=== PATIENT | female | born 1970 | race Hispanic/Latino ===

== ENCOUNTER 2018-11-21 19:07 | Emergency (ER) | payer OTHER ==
[2018-11-21 19:56] LABS: Absolute Lymphocytes (CBC) 0.8 K/uL (0.7-4.9); Absolute Monocytes 0.7 K/uL (0.1-1.3); Absolute Neutrophil 5.6 K/uL (1.8-8.0); Basophils % 0.4 % (0-1.3); Eosinophils % 0.3 % (0-4.4); Hematocrit 33.4 % (36.0-45.0); MPV 8.7 fL (7.6-11.3); Monocytes % 9.8 % (3.3-12.3); RBC Red Blood Cell Count 3.71 M/uL (3.86-4.86)
[2018-11-21 20:12] LABS: ALT/SGPT 38 U/L (12-78); AST/SGOT 36 U/L (15-37); Albumin 3.5 g/dL (3.4-5.0); Alkaline Phosphatase 51 U/L (45-117); BUN Blood Urea Nitrogen 15 mg/dL (7-18); Bicarbonate 25 mmol/L (21-32); Bilirubin Direct 0.1 mg/dL (0-0.2); Bilirubin Total 0.3 mg/dL (0.2-1.0); Glucose Level 94 mg/dL (74-106); Lipase 67 U/L (73-393); Potassium 3.1 mmol/L (3.5-5.1); Protein, Total 6.5 g/dL (6.4-8.2); Sodium Level 140 mmol/L (136-145)
[2018-11-21 20:21] LABS: Urine Blood NEGATIVE (NEG); Urine Glucose NEGATIVE (NEG); Urine Protein 1+ (NEG); Urine Specific Gravity >1.030 (1.005-1.030); Urine pH 5.5 (5.0-7.0)
[2018-11-21 20:37] LABS: Urine Bacteria >50 /HPF (<20); Urine RBC <5 /HPF (NONE SEEN)
[2018-11-21 20:39] LABS: Urine Amorphous Sediment 3+ /HPF (NONE SEEN); Urine Culture Reflex Order REFLEXED
[2018-11-21] MEDS ORDERED: POTASSIUM CL SA 10 MEQ TAB PO ONE ×2 (21:52→22:03)
[2018-11-21] MEDS ORDERED: CEFTRIAXONE/SWI 1gm 1 GM/10 ML SYR ONE (21:52)
[2018-11-21] MEDS ORDERED: KETOROLAC 30 MG/ML INJ ONE (22:20)
[2018-11-21] MEDS ORDERED: NA CHLORIDE 0.9% 1,000 ML ONE (22:20)
--- NOTE | 2018-11-21 23:15 | ER ---
Nurse's Notes [facility] Name: Shayy Gonzales Age: 48 yrs Sex: Female : 1970 Arrival Date: 11/21/2018 Time: 19:11 Bed 18 Private MD: Diagnosis: Urinary tract infection, site not specified Presentation: 11/21 19:21 Presenting complaint: Patient states: she has been vomiting with diarrhea since Wednesday, bb also has burning with urination which started today and pain on left side of face pt saw PCP today who gave her Cipro and Zofran but she states her stomach has never been this bloated or painful and is radiating to her lower back. Transition of care: patient was not received from another setting of care. Onset of symptoms was November 18, 2018. Risk Assessment: Do you want to hurt yourself or someone else? Patient reports no desire to harm self or others. Initial Sepsis Screen: Does the patient meet any 2 criteria? No. Patient's initial sepsis screen is negative. Does the patient have a suspected source of infection? No. Patient's initial sepsis screen is negative. Care prior to arrival: Cipro and Zofran taken one time today. 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 - Social history:: Smoking status: Patient/guardian denies using tobacco, Patient uses alcohol, occasionally. Patient/guardian denies using street drugs. - Ebola Screening: : No symptoms or risks identified at this time. Screenin:25 Abuse screen: Denies threats or abuse. Nutritional screening: No deficits noted. ea Tuberculosis screening: No symptoms or risk factors identified. Fall Risk None identified. Assessment: 19:33 General: Appears uncomfortable, Behavior is calm, cooperative, appropriate for age. ea Pain: Complains of pain in abdomen Pain does not radiate. Pain currently is 9 out of 10 on a pain scale. Neuro: Level of Consciousness is awake, alert, obeys commands, Oriented to person, place, time, situation. Cardiovascular: Patient's skin is warm and dry. Respiratory: Airway is patent Respiratory effort is even, unlabored, Respiratory pattern is regular, symmetrical. GI: Bowel sounds present X 4 quads. Abd is soft X 4 quads Abdomen is tender to palpation in right upper quadrant, left upper quadrant, right lower quadrant and left lower quadrant Reports bloating, diarrhea. Derm: Skin is pink, warm \T\ dry. 20:24 Reassessment: Patient and/or family updated on plan of care and expected duration. Pain ea level reassessed. Patient is alert, oriented x 3, equal unlabored respirations, skin warm/dry/pink. 21:30 Reassessment: Patient and/or family updated on plan of care and expected duration. Pain ea level reassessed. Patient is alert, oriented x 3, equal unlabored respirations, skin warm/dry/pink. 23:00 Reassessment: Patient and/or family updated on plan of care and expected duration. Pain ea level reassessed. Patient is alert, oriented x 3, equal unlabored respirations, skin warm/dry/pink. 23:28 Reassessment: Patient and/or family updated on plan of care and expected duration. Pain ea level reassessed. Patient is alert, oriented x 3, equal unlabored respirations, skin warm/dry/pink. Discharge instruction given to patient, verbalized the understanding of instruction Patient states feeling better. Patient states symptoms have improved. Vital Signs: 19:24 BP 110 / 75; Pulse 80; Resp 16 S; Temp 99.1(O); Pulse Ox 98% on R/A; Weight 53.07 kg bb (R); Height 5 ft. 0 in. (152.40 cm) (R); Pain 9/10; 20:45 BP 103 / 67; Pulse 74; Resp 18; Pulse Ox 99% ; ea 21:30 BP 107 / 70; Pulse 68; Resp 18; Pulse Ox 100% ; ea 23:00 BP 100 / 59; Pulse 70; Resp 18; Pulse Ox 99% on R/A; ea 19:24 Body Mass Index 22.85 (53.07 kg, 152.40 cm) ED Course: 19:11 Patient arrived in ED. am2 19:24 Triage completed. bb 19:24 Arm band placed on Patient placed in an exam room, on a stretcher, on pulse oximetry. bb Family accompanied patient. 19:30 Fletcher Sullivan MD is Attending Physician. tw4 19:33 Corina Sosa, RN is Primary Nurse. ea 19:43 Inserted saline lock: 20 gauge in right antecubital area, using aseptic technique. ar5 19:52 Lipase Sent. ar5 19:53 Lipase Sent. ar5 19:53 Hepatic Function Sent. ar5 19:53 Creatinine for Radiology Sent. ar5 19:53 CBC with Diff Sent. ar5 19:53 Basic Metabolic Panel Sent. ar5 20:25 Patient has correct armband on for positive identification. Bed in low position. Call ea light in reach. Side rails up X 1. 23:28 No provider procedures requiring assistance completed. IV discontinued, intact, ea bleeding controlled, No redness/swelling at site. Pressure dressing applied. Administered Medications: 21:50 Drug: Rocephin 1 grams Route: IV; Rate: 1 bolus; Site: right antecubital; ea 22:00 Follow up: Response: No adverse reaction; IV Status: Completed infusion ea 21:50 Drug: Potassium Chloride 40 mEq Route: PO; ea 22:00 Follow up: Response: No adverse reaction ea 22:19 Drug: TORadol 30 mg Route: IVP; Site: right antecubital; ea 22:50 Follow up: Response: No adverse reaction; Pain is decreased ea 22:19 Drug: NS 0.9% 1000 ml Route: IV; Rate: 1 bolus; Site: right antecubital; ea 23:29 Follow up: Response: No adverse reaction; IV Status: Completed infusion; IV Intake: ea 1000ml Intake: 23:29 IV: 1000ml; Total: 1000ml. ea Outcome: 23:13 Discharge ordered by . tw4 23:28 Discharged to home ambulatory, with significant other. ea 23:28 Condition: improved 23:28 Discharge instructions given to patient, Instructed on discharge instructions, follow up and referral plans. medication usage, Demonstrated understanding of instructions, follow-up care, medications, Prescriptions given X 3. 23:34 Patient left the ED. ea Signatures: Promise Mccarthy RN RN bb Moreno, Amanda am2 Corina Sosa RN RN ea Wadley, Terrence, MD MD tw4 Mateo, Teena ar5
--- NOTE | 2018-11-21 23:15 | EDPHYS ---
Physician Documentation [facility] Name: Shayy Gonzales Age: 48 yrs Sex: Female : 1970 Arrival Date: 11/21/2018 Time: 19:11 Bed 18 Private MD: ED Physician Fletcher Sullivan HPI: 11/21 23:09 This 48 yrs old Female presents to ER via Ambulatory with complaints of tw4 Abdominal Pain, Vomiting/Diarrhea, Pain With Urination. 23:09 The patient presents to the emergency department with nausea, vomiting, diarrhea, that tw4 is intermittent. Onset: The symptoms/episode began/occurred 4 day(s) ago. Possible causes: unknown. The symptoms are aggravated by nothing. The symptoms are alleviated by nothing. Associated signs and symptoms: The patient has no apparent associated signs or symptoms. Severity of symptoms: At their worst the symptoms were moderate in the emergency department the symptoms are unchanged. The patient has not experienced similar symptoms in the past. 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 - Social history:: Smoking status: Patient/guardian denies using tobacco, Patient uses alcohol, occasionally. Patient/guardian denies using street drugs. - Ebola Screening: : No symptoms or risks identified at this time. ROS: 23:09 Constitutional: Negative for fever, chills, and weight loss, Eyes: Negative for injury, tw4 pain, redness, and discharge, Cardiovascular: Negative for chest pain, palpitations, and edema, Respiratory: Negative for shortness of breath, cough, wheezing, and pleuritic chest pain. 23:09 Back: Negative for injury and pain, MS/Extremity: Negative for injury and deformity, Skin: Negative for injury, rash, and discoloration, Neuro: Negative for headache, weakness, numbness, tingling, and seizure. 23:09 Abdomen/GI: Positive for abdominal pain, nausea and vomiting, nausea, vomiting, and diarrhea, nausea, vomiting, diarrhea. Exam: 23:09 Constitutional: This is a well developed, well nourished patient who is awake, alert, tw4 and in no acute distress. Head/Face: Normocephalic, atraumatic. Chest/axilla: Normal chest wall appearance and motion. Nontender with no deformity. No lesions are appreciated. Cardiovascular: Regular rate and rhythm with a normal S1 and S2. No gallops, murmurs, or rubs. Normal PMI, no JVD. No pulse deficits. Respiratory: Lungs have equal breath sounds bilaterally, clear to auscultation and percussion. No rales, rhonchi or wheezes noted. No increased work of breathing, no retractions or nasal flaring. Abdomen/GI: Soft, non-tender, with normal bowel sounds. No distension or tympany. No guarding or rebound. No evidence of tenderness throughout. MS/ Extremity: Pulses equal, no cyanosis. Neurovascular intact. Full, normal range of motion. Neuro: Awake and alert, GCS 15, oriented to person, place, time, and situation. Cranial nerves II-XII grossly intact. Motor strength 5/5 in all extremities. Sensory grossly intact. Cerebellar exam normal. Normal gait. Vital Signs: 19:24 BP 110 / 75; Pulse 80; Resp 16 S; Temp 99.1(O); Pulse Ox 98% on R/A; Weight 53.07 kg bb (R); Height 5 ft. 0 in. (152.40 cm) (R); Pain 9/10; 20:45 BP 103 / 67; Pulse 74; Resp 18; Pulse Ox 99% ; ea 21:30 BP 107 / 70; Pulse 68; Resp 18; Pulse Ox 100% ; ea 23:00 BP 100 / 59; Pulse 70; Resp 18; Pulse Ox 99% on R/A; ea 19:24 Body Mass Index 22.85 (53.07 kg, 152.40 cm) bb MDM: 19:30 Patient medically screened. tw4 23:09 Differential diagnosis: Nonspecific abd pain, gastritis. Data reviewed: vital signs, tw4 nurses notes. Counseling: I had a detailed discussion with the patient and/or guardian regarding: the historical points, exam findings, and any diagnostic results supporting the discharge/admit diagnosis. 11/21 19:31 Order name: Basic Metabolic Panel; Complete Time: 21:39 [facility] 11/21 21:39 Interpretation: K 3.1; CL 108. [facility] 11/21 19:31 Order name: CBC with Diff; Complete Time: 21:38 [facility] 11/21 21:38 Interpretation: Normal except: RBC 3.71; HGB 11.6; HCT 33.4; STEVEN% 78.5; LYM% 11.0. [facility] 11/21 19:31 Order name: Creatinine for Radiology; Complete Time: 21:26 [facility] 11/21 21:27 Interpretation: Within normal limits: CRE 0.61; GFR > 90. [facility] 11/21 19:31 Order name: Hepatic Function; Complete Time: 21:27 [facility] 11/21 21:27 Interpretation: Within normal limits. [facility] 11/21 19:31 Order name: Lipase; Complete Time: 21:39 [facility] 11/21 21:39 Interpretation: Within normal limits: LIP 67. [facility] 11/21 20:11 Order name: Urine Dipstick--Ancillary (enter results); Complete Time: 21:39 [facility] 11/21 19:31 Order name: IV Saline Lock; Complete Time: 19:52 [facility] 11/21 20:11 Order name: Urine --Ancillary (enter results); Complete Time: 21:26 [facility] 11/21 21:26 Interpretation: Normal except: USPGR >1.030. [facility] 11/21 20:15 Order name: Urine Microscopic Only; Complete Time: 21:26 [facility] 11/21 21:26 Interpretation: Normal except: UBACT >50; AMORPH 3+. [facility] 11/21 20:41 Order name: Urine Culture [facility] 11/21 19:31 Order name: Labs collected and sent; Complete Time: 19:53 Administered Medications: 21:50 Drug: Rocephin 1 grams Route: IV; Rate: 1 bolus; Site: right antecubital; ea 22:00 Follow up: Response: No adverse reaction; IV Status: Completed infusion ea 21:50 Drug: Potassium Chloride 40 mEq Route: PO; ea 22:00 Follow up: Response: No adverse reaction ea 22:19 Drug: TORadol 30 mg Route: IVP; Site: right antecubital; ea 22:50 Follow up: Response: No adverse reaction; Pain is decreased ea 22:19 Drug: NS 0.9% 1000 ml Route: IV; Rate: 1 bolus; Site: right antecubital; ea 23:29 Follow up: Response: No adverse reaction; IV Status: Completed infusion; IV Intake: ea 1000ml Disposition: 11/21/18 23:13 Discharged to Home. Impression: Urinary tract infection, site not specified. - Condition is Stable. - Discharge Instructions: Dysuria, Urinary Tract Infection, Adult, Urinary Tract Infection, Adult, [id number], Antibiotic Medicine, [id number]. - Prescriptions for Pyridium 200 mg Oral Tablet - take 1 tablet by ORAL route every 8 hours for 3 days; 9 tablet. Zofran 4 mg Oral Tablet - take 1 tablet by ORAL route every 12 hours As needed; 20 tablet. Macrobid 100 mg Oral Capsule - take 1 capsule by ORAL route every 12 hours for 10 days; 20 capsule. - Medication Reconciliation Form, Thank You Letter, Antibiotic Education, Prescription Opioid Use form. - Follow up: Private Physician; When: Upon discharge from the Emergency Department; Reason: Recheck today's complaints, Continuance of care, Re-evaluation by your physician. - Problem is new. - Symptoms have improved. Signatures: Dispatcher [employer] EDMS Promise Mccarthy RN RN bb Antunez, Elena, RN RN ea Wadley, Terrence, MD MD tw4 Corrections: (The following items were deleted from the chart) 23:11 23:09 Constitutional: Negative for fever, chills, and weight loss, Eyes: Negative for tw4 injury, pain, redness, and discharge, Cardiovascular: Negative for chest pain, palpitations, and edema, Respiratory: Negative for shortness of breath, cough, wheezing, and pleuritic chest pain, Abdomen/GI: Negative for abdominal pain, nausea, vomiting, diarrhea, and constipation, Back: Negative for injury and pain, MS/Extremity: Negative for injury and deformity, Skin: Negative for injury, rash, and discoloration, Neuro: Negative for headache, weakness, numbness, tingling, and seizure, tw4 23:34 23:13 11/21/2018 23:13 Discharged to Home. Impression: Urinary tract infection, site ea not specified. Condition is Stable. Forms are Medication Reconciliation Form, Thank You Letter, Antibiotic Education, Prescription Opioid Use. Follow up: Private Physician; When: Upon discharge from the Emergency Department; Reason: Recheck today's complaints, Continuance of care, Re-evaluation by your physician. Problem is new. Symptoms have improved. tw4
== END 2018-11-21 23:34 | disposition home or self-care (01) ==
LOC: ER 19:07
DX: N39.0 Urinary tract infection, site not specified (principal)
CPT/HCPCS: 36415; 80048; 80076; 81003; 81015; 81025; 83690; 85025; 87086; 87088; 96361; 96374; 96375; 99284; J0696; J7030

== ENCOUNTER 2019-03-16 06:14 | Day surgery (SDC) | payer OTHER ==
[2019-03-14 12:48] LABS: Absolute Lymphocytes (CBC) 1.1 K/uL (0.7-4.9); Absolute Monocytes 0.5 K/uL (0.1-1.3); Basophils % 1.2 % (0-1.3); Eosinophils % 1.9 % (0-4.4); Hematocrit 42.9 % (36.0-45.0); Lymphocytes % 19.6 % (15.3-44.8); MPV 9.7 fL (7.6-11.3); Monocytes % 8.1 % (3.3-12.3); RBC Red Blood Cell Count 4.81 M/uL (3.86-4.86)
[2019-03-14 13:02] LABS: Urine Appearance CLEAR; Urine Bilirubin NEGATIVE (NEG); Urine Blood NEGATIVE (NEG); Urine Color YELLOW; Urine Glucose NEGATIVE (NEG); Urine Protein NEGATIVE (NEG); Urine Specific Gravity <=1.005 (1.005-1.030); Urine Urobilinogen 0.2 mg/dL (0.2-1.0); Urine pH 6.5 (5.0-7.0)
[2019-03-14 13:20] LABS: Urine Microscopic Reflex NO UMIC
[2019-03-16 06:41] LABS: Specific Gravity 1.025 (1.005-1.030)
[2019-03-16] MEDS ORDERED: SCOPOLAMINE HYDROBROMIDE PATCH TD ONE (06:41)
[2019-03-16] MEDS ORDERED: CEFAZOLIN/SWI 2gm 2 GM/20 ML SYR ONE (06:41)
[2019-03-16] MEDS ORDERED: Ringers Lactate 1,000 ML IV ONE ×3 (06:41→12:06)
[2019-03-16] MEDS ORDERED: ROCURONIUM 50 MG/5 ML VIAL IV ONE ×2 (07:16→08:45)
[2019-03-16] MEDS ORDERED: PROPOFOL 200 MG/20 ML VIAL IV ONE (07:16)
[2019-03-16] MEDS ORDERED: NA CHLORIDE 0.9% 1,000 ML ONE (07:19)
[2019-03-16] MEDS ORDERED: LIDOCAINE 2% MPF 5 ML VIAL ONE (07:20)
[2019-03-16] MEDS ORDERED: GLYCOPYRROLATE 0.2 MG/ML SYR ONE (07:20)
[2019-03-16] MEDS ORDERED: FENTANYL CITR 250 MCG/5 ML ONE (07:21)
[2019-03-16] MEDS ORDERED: MIDAZOLAM HCL 2 MG/2 ML INJ ONE (07:21)
[2019-03-16] MEDS ORDERED: NEOSTIGMINE 1 MG/ML -10 ML VIAL ONE (07:22)
[2019-03-16] MEDS ORDERED: DEXAMETHASONE 10 MG/ML VIAL ONE (07:22)
[2019-03-16] MEDS ORDERED: ONDANSETRON 4 MG/2 ML VIAL ONE ×2 (07:22→09:34)
[2019-03-16] MEDS ORDERED: EPHEDRINE SULF 50 MG/ML VIAL ONE (07:55)
[2019-03-16] MEDS ORDERED: KETOROLAC 30 MG/ML INJ ONE (09:34)
[2019-03-16] MEDS ORDERED: MORPHINE 10 MG/ML VIAL ONE (10:28)
[2019-03-16] MEDS: MEPERIDINE HCL 50 MG/ML AMP ONE ×2 (10:40→10:49)
[2019-03-16] MEDS ORDERED: PROMETHAZINE 25 MG/ML VIAL ONE (10:52)
[2019-03-16] MEDS ORDERED: MEPERIDINE HCL 25 MG/0.5 ML ONE (11:19)
[2019-03-16] MEDS ORDERED: HYDROCODONE/APAP 5/325 MG TAB ONE (12:02)
--- NOTE | 2019-03-16 21:02 | OP ---
Date of Procedure: 03/16/2019 Surgeon: Mary Dooley MD Rn Midwife: Kim Santos. Preoperative Diagnoses: Menorrhagia, pelvic pain, leiomyomata, PEDRITO 1. Postoperative Diagnoses: Menorrhagia, pelvic pain, leiomyomata, PEDRITO 1. No endometriosis. Procedures Performed: Total laparoscopic hysterectomy, bilateral salpingectomy, cystoscopy. Anesthesia: General endotracheal. Estimated Blood Loss: Minimal. Specimens: Uterus bilateral tubes. Complications: None. Drains: None. Condition: Stable. Findings: Uterus enlarged with a large left posterior fibroid about 6 to 8 cm. No adnexal masses. Tubes with scar tissue and omental adhesions to the left adnexa as well as the right adnexa. No endometriosis seen on close inspection. No other pathology seen. Procedure In Detail: After informed consent was verified, the patient was taken back to OR, placed i n supine fashion on the operating table. After general anesthesia was given, she was placed in dorsa l lithotomy position. Pelvic exam was performed. Uterus found to be retroflexed. No adnexal masses enlarged about 12 weeks size. Abdomen, vulva, vagina, and perineum were prepped and draped in a mariya rile fashion. A 2 g of Ancef was given. SCDs were started. Arms tucked by the side after positioni ng was checked. Time-out done. Then, the prep was done. Draped in a sterile fashion. Joseph was pl aced to drain the bladder. Speculum placed to expose the cervix. Anterior lip grasped with 2 Allis clamps. Cervix was large. Went on to place a large VCare, fixed this in place. Joseph was attached to an LR bag, emptied 300 using cysto tubing for retrograde filling. After changing the gloves, 1.5 cm supraumbilical incision was made with a scalpel. Using the open la paroscopy technique, fascia was incised, tagged with 0 Vicryl sutures. Peritoneum entered bluntly, S retractors placed. Phylicia introduced. Site of entry was checked and was unremarkable. Liver gallb ladder unremarkable. Upper abdominal surface was unremarkable as well. The patient was placed in Tr endelenburg position. The omentum was stuck onto the top of the uterus. A 5 mm left lower quadrant port was placed under direct vision. Then, a 10 mm suprapubic port was placed. This was slightly pl aced to the right in the midline and slightly lower about a cm and half lower than was optimal. The first use this port for about 15 minutes of the case and then I realized that this was just very diff icult to operate through. So the fascia was closed with 0 Vicryl suture in a [id number] fashion and then the other fascial incision was made superior and along the midline in an appropriate positi on. No new skin incision was used for this. A 5 mm right lower quadrant port was placed and this was for retraction. Once all the omentum was visualized, it was sharply taken down as well as with LigaSure. The sigmoid colon had to be taken down to expose the entire extent of the tube on the right side. There was an omental adhesions to the right tube as well. These were taken down. Once all these were done, then the case was started. The 5 mm LigaSure used to take down the round ligament, left tube, mesosalpinx , utero-ovarian ligament, then the broad ligament opened up on anterior and posterior aspects and max dder flap raised anteriorly all the way to the opposite sides and posteriorly to the left uterosacral ligament. Then took down the broad ligament, skeletonized the vessels. Came anteriorly to perform more dissection to retract the bladder inferiorly, then went on opposite side. Did the same steps to take the utero-ovarian ligament, mesosalpinx, tubes that was already cut and the proximal part of it , then the round ligament, then the broad ligament was dissected in both anterior and posterior leafl ets. The bladder flap connected anteriorly, posteriorly connected back at the level of the uterosacr al ligament. Then, broad ligament was skeletonized. Bladder was dissected inferiorly by making an i ncision on the precervical fascia on top of the vagina to open up the vesicovaginal space and then I pushed the bladder down, but pushed down 2 cm, then medial incisions were made to the vessels to crea te a groove to cauterize. Bipolar basket tip was used, then the LigaSure was used to take down the v essels, cardinal ligaments. Same thing on the left side, circumferential colpotomy with a monopolar hook blade. There was a slight amount of thick tissue which could be just a small amount of ectocerv ix left on the right corner, but no other abnormality were seen. Thorough irrigation for suction was performed. The vaginal cuff was cauterized with the help of the bipolar basket tip and the LigaSure . Then, closure was done with simple 0 Vicryl stitch at both ends and 3 [id number] in the mid dle. Good support and reattachment and no problems with the hemostasis. Tubes were then removed wit h the LigaSure and removed. Then, thorough irrigation and suction were performed. Pictures were pebbles en. There was no evidence of electrical, mechanical, or thermal injury to the ureters. The ureter p aths were traced at the beginning of the case. There was no anatomic distortion at any point. So, t he umbilicus was desufflated. Fascia at the umbilicus closed with 0 Vicryl sutures that were placed and to tag. They were tied to each other with good closure effect. The fascia at the suprapubic was also closed with the help of simple 0 Vicryl stitch. The skin incisions x3 were closed with interru pted 4-0 Vicryl was then at the level of the umbilicus, there was scar revision. I had to excise the scar from her umbilical piercing. Then, I was able to reapproximate this just to create a better he patic effect with interrupted 4-0 Vicryl sutures. Then cystoscopy was performed after removing the F oley and the vaginal bulb with a 17-Jordanian sheath, 30-degree lens and normal saline. There were exce llent streams of urine from both ureteric orifices. The entire bladder surface was well visualized i n all directions and was unremarkable. Scope was removed. The bladder was drained. The vagina was cleaned up. Instrument, needle, and sponge counts were done and were correct at the end of case. Th e patient tolerated the procedure well. She will follow up with me in 1-week. AMINATA/DAFNE Voice ID: [id number] Report ID: [id number]
== END 2019-03-16 13:50 | disposition home or self-care (01) ==
LOC: OR 06:14
PROVIDERS: ATTEND Obstetrics & Gynecology
PROC: 0UT74ZZ Resection of Bilateral Fallopian Tubes, Percutaneous Endoscopic Approach (ICD-10-PCS; 2019-03-16)
PROC: 0UT94ZZ Resection of Uterus, Percutaneous Endoscopic Approach (ICD-10-PCS; principal; 2019-03-16 07:30)
DX: D25.9 Leiomyoma of uterus, unspecified (principal); N87.0 Mild cervical dysplasia; N88.8 Other specified noninflammatory disorders of cervix uteri; N72 Inflammatory disease of cervix uteri; N83.8 Other noninflammatory disorders of ovary, fallopian tube and broad ligament; N92.1 Excessive and frequent menstruation with irregular cycle; K66.0 Peritoneal adhesions (postprocedural) (postinfection)
CPT/HCPCS: 36415; 81003; 81025; 85025; 86850; 86900; 86901; 88307; J0690; J1100; J2175; J2250; J2405; J2550; J2704; J2710; J3010; J7030

== ENCOUNTER 2019-05-01 11:58 | Emergency (ER) | payer OTHER ==
[2019-05-01 12:44] LABS: Absolute Lymphocytes (CBC) 1.8 K/uL (0.7-4.9); Basophils % 1.1 % (0-1.3); Eosinophils % 3.5 % (0-4.4); Hematocrit 39.7 % (36.0-45.0); Lymphocytes % 24.7 % (15.3-44.8); MPV 9.1 fL (7.6-11.3); Monocytes % 7.5 % (3.3-12.3); RBC Red Blood Cell Count 4.33 M/uL (3.86-4.86)
[2019-05-01] MEDS ORDERED: MORPHINE 4 MG/ML SYR ONE (12:44)
[2019-05-01] MEDS ORDERED: ONDANSETRON 4 MG/2 ML VIAL ONE (12:44)
[2019-05-01] MEDS ORDERED: NA CHLORIDE 0.9% 1,000 ML ONE (12:44)
[2019-05-01 13:02] LABS: ALT/SGPT 19 U/L (12-78); AST/SGOT 23 U/L (15-37); Albumin 3.8 g/dL (3.4-5.0); Alkaline Phosphatase 72 U/L (45-117); BUN Blood Urea Nitrogen 20 mg/dL (7-18); Bicarbonate 25 mmol/L (21-32); Bilirubin Direct < 0.1 mg/dL (0-0.2); Bilirubin Total 0.3 mg/dL (0.2-1.0); Glucose Level 88 mg/dL (74-106); Lipase 117 U/L (73-393); Protein, Total 6.8 g/dL (6.4-8.2); Sodium Level 141 mmol/L (136-145)
[2019-05-01 13:04] LABS: Urine Blood NEGATIVE (NEG); Urine Glucose NEGATIVE (NEG); Urine Protein NEGATIVE (NEG); Urine Specific Gravity <1.005 (1.005-1.030); Urine pH 5.5 (5.0-7.0)
--- NOTE | 2019-05-01 13:43 | RAD REPORT ---
EXAM DESCRIPTION: CTAbdomen Pelvis W Contrast - 05/01/2019 1:31 pm CLINICAL HISTORY: Abdominal pain. RLQ w/ rebound;Abd pain COMPARISON: No comparisons TECHNIQUE: Biphasic CT imaging of the abdomen and pelvis was performed with 100 ml non-ionic IV cont rast. All CT scans are performed using dose optimization technique as appropriate and may include automated exposure control or mA/KV adjustment according to patient size. FINDINGS: Mild linear subsegmental atelectasis is present in the left lung base. Small hypodense liver lesions are present, probably cysts but incompletely character. The spleen, farley creas, adrenal glands and kidneys are within normal limits. Moderate stool is present throughout the colon. No free fluid, free air or abscess. The appendix is n ormal. No evidence of significant lymphadenopathy. No suspicious bony findings. Mild lumbar levoscoliosis. IMPRESSION: Moderate stool is present in the colon.
--- NOTE | 2019-05-01 14:17 | RAD REPORT ---
EXAM DESCRIPTION: US - Transvaginal Study Probe - 05/01/2019 1:54 pm CLINICAL HISTORY: ABD PAIN Pelvic pain. COMPARISON: No comparisons FINDINGS: The uterus is surgically absent. No pelvic mass or ascites. The right ovary was not seen clearly, potentially due to bowel gas shadowing. The left ovary measures 14 x 8 x 7 mm. Normal blood flow seen to the left ovary. No pelvic ascites. IMPRESSION: No acute process seen.
--- NOTE | 2019-05-01 15:25 | EDPHYS ---
Physician Documentation [facility] Name: Shayy Gonzales Age: 48 yrs Sex: Female : 1970 Arrival Date: 05/01/2019 Time: 12:03 Bed 19 Private MD: ED Physician Jose Diez HPI: 05/01 12:26 This 48 yrs old Female presents to ER via Ambulatory with complaints of kdr Abdominal Pain. 12:26 The patient presents with abdominal pain right lower quadrant, R flank and CVA. Onset: kdr The symptoms/episode began/occurred gradually, 1 week(s) ago. The symptoms radiate to the right flank. Associated signs and symptoms: Pertinent positives: nausea, Pertinent negatives: blood in stools, chest pain, constipation, diarrhea, dysuria, fever, headache, hematuria, palpitations, shortness of breath, vaginal discharge, vomiting, vomiting blood. The symptoms are described as achy, crampy, intermittent, sharp, stabbing, vague, waxing/waning. Modifying factors: The symptoms are alleviated by nothing, the symptoms are aggravated by. Severity of pain: At its worst the pain was moderate in the emergency department the pain is unchanged. The patient has not experienced similar symptoms in the past. The patient has been recently seen by a physician: Had a total hysterectomy about a month ago.. 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 - Social history:: Smoking status: Patient/guardian denies using tobacco. - Ebola Screening: : Patient negative for fever greater than or equal to 101.5 degrees Fahrenheit, and additional compatible Ebola Virus Disease symptoms Patient denies exposure to infectious person Patient denies travel to an Ebola-affected area in the 21 days before illness onset. ROS: 12:26 Constitutional: Negative for fever, chills, and weight loss, Eyes: Negative for injury, kdr pain, redness, and discharge, Neck: Negative for injury, pain, and swelling, Cardiovascular: Negative for chest pain, palpitations, and edema, Respiratory: Negative for shortness of breath, cough, wheezing, and pleuritic chest pain, Back: Negative for injury and pain, : Negative for injury, bleeding, discharge, and swelling, MS/Extremity: Negative for injury and deformity, Skin: Negative for injury, rash, and discoloration, Neuro: Negative for headache, weakness, numbness, tingling, and seizure activity. Psych: Negative for depression, anxiety, suicide ideation, homicidal ideation, and hallucinations, Allergy/Immunology: Negative for hives, rash, and allergies, Endocrine: Negative for neck swelling, polydipsia, polyuria, polyphagia, and marked weight changes, Hematologic/Lymphatic: Negative for swollen nodes, abnormal bleeding, and unusual bruising. 12:26 Abdomen/GI: Positive for abdominal pain, nausea. Exam: 12:26 Constitutional: This is a well developed, well nourished patient who is awake, alert, kdr and in no acute distress. Head/Face: Normocephalic, atraumatic. Eyes: Pupils equal round and reactive to light, extra-ocular motions intact. Lids and lashes normal. Conjunctiva and sclera are non-icteric and not injected. Cornea within normal limits. Periorbital areas with no swelling, redness, or edema. Neck: Trachea midline, no thyromegaly or masses palpated, and no cervical lymphadenopathy. Supple, full range of motion without nuchal rigidity, or vertebral point tenderness. No Meningismus. Chest/axilla: Normal chest wall appearance and motion. Nontender with no deformity. No lesions are appreciated. Cardiovascular: Regular rate and rhythm with a normal S1 and S2. No gallops, murmurs, or rubs. Normal PMI, no JVD. No pulse deficits. Respiratory: Lungs have equal breath sounds bilaterally, clear to auscultation and percussion. No rales, rhonchi or wheezes noted. No increased work of breathing, no retractions or nasal flaring. Back: No spinal tenderness. No costovertebral tenderness. Full range of motion. Skin: Warm, dry with normal turgor. Normal color with no rashes, no lesions, and no evidence of cellulitis. MS/ Extremity: Pulses equal, no cyanosis. Neurovascular intact. Full, normal range of motion. Neuro: Awake and alert, GCS 15, oriented to person, place, time, and situation. Cranial nerves II-XII grossly intact. Motor strength 5/5 in all extremities. Sensory grossly intact. Cerebellar exam normal. Normal gait. Psych: Awake, alert, with orientation to person, place and time. Behavior, mood, and affect are within normal limits. 12:26 Abdomen/GI: Inspection: abdomen appears normal, Bowel sounds: active, all quadrants, diminished, Palpation: soft, mild abdominal tenderness, in the posterior aspect of right lateral abdomen and right lower quadrant, Indicators: McBurney's point is tender, Whitman's sign is negative, Rovsing's sign is negative, Obturator sign is positive, Psoas sign is positive. Vital Signs: 12:10 BP 101 / 70; Pulse 67; Resp 18; Temp 98.1; Pulse Ox 98% on R/A; Weight 55.34 kg; Height hj 5 ft. 0 in. (152.40 cm); Pain 8/10; 13:15 BP 103 / 68; Pulse 61; Resp 17 S; Temp 98(O); Pulse Ox 99% ; ca1 14:00 BP 111 / 74; Pulse 59; Resp 17; Temp 98; Pulse Ox 100% ; ca1 15:19 BP 108 / 73; Pulse 65; Resp 17 S; Temp 97.9(O); Pulse Ox 100% on R/A; ca1 12:10 Body Mass Index 23.83 (55.34 kg, 152.40 cm) MDM: 12:26 Data reviewed: vital signs, nurses notes, lab test result(s), radiologic studies. kdr Counseling: I had a detailed discussion with the patient and/or guardian regarding: the historical points, exam findings, and any diagnostic results supporting the discharge/admit diagnosis, lab results, radiology results. 15:20 Patient medically screened. kdr 05/01 12:13 Order name: Basic Metabolic Panel; Complete Time: 13: kdr 05/01 12:13 Order name: CBC with Diff; Complete Time: 13: kdr 05/01 12:13 Order name: Creatinine for Radiology; Complete Time: : kdr 05/01 12:13 Order name: Hepatic Function; Complete Time: : kdr 05/01 12:13 Order name: Lipase; Complete Time: 13: kdr 05/01 12:49 Order name: Urine Dipstick--Ancillary (enter results); Complete Time: 13: bd 05/01 12:13 Order name: IV Saline Lock; Complete Time: 12:35 kdr 05/01 12:13 Order name: Labs collected and sent; Complete Time: 12:35 kdr 05/01 12:25 Order name: CT Abd/Pelvis - IV Contrast Only; Complete Time: 14:08 kdr 05/01 13:08 Order name: US Transvaginal Study (Probe); Complete Time: 15:08 kdr Administered Medications: 12:34 Drug: NS 0.9% 1000 ml Route: IV; Rate: 1 bolus; Site: right antecubital; ca1 14:20 Follow up: IV Status: Completed infusion ca1 12:34 Drug: Zofran 4 mg Route: IVP; Site: right antecubital; ca1 14:20 Follow up: Response: No adverse reaction; Pain is decreased ca1 12:37 Drug: morphine 4 mg Route: IVP; Site: right antecubital; ca1 14:20 Follow up: Response: No adverse reaction; Nausea is decreased ca1 Disposition: 05/01/19 15:20 Discharged to Home. Impression: Abdominal and pelvic pain, Constipation. - Condition is Fair. - Discharge Instructions: Constipation, Adult, Bsey-bl-Sveo, Abdominal Pain, Adult, Kvit-zq-Asox. - Prescriptions for Bentyl 20 mg Oral Tablet - take 1 tablet by ORAL route every 6 hours As needed; 20 tablet. Miralax 17 gram/dose Oral - take 1 packet by ORAL route once daily As needed dilute powder in 8 ounces of water or juice; 1 box. - Medication Reconciliation Form, Thank You Letter form. - Follow up: Private Physician; When: 2 - 3 days; Reason: If symptoms return, Further diagnostic work-up, Recheck today's complaints, Continuance of care, Re-evaluation by your physician. - Problem is new. - Symptoms have improved. Signatures: Dispatcher [employer] EDMS Jose Diez MD MD kdr El Kan RN RN Scarlet Leonardo RN RN ca1 Corrections: (The following items were deleted from the chart) 15:41 15:20 05/01/2019 15:20 Discharged to Home. Impression: Abdominal and pelvic pain; ca1 Constipation. Condition is Fair. Forms are Medication Reconciliation Form, Thank You Letter, Antibiotic Education, Prescription Opioid Use. Follow up: Private Physician; When: 2 - 3 days; Reason: If symptoms return, Further diagnostic work-up, Recheck today's complaints, Continuance of care, Re-evaluation by your physician. Problem is new. Symptoms have improved. kdr
--- NOTE | 2019-05-01 15:25 | ER ---
Nurse's Notes [facility] Name: Shayy Gonzales Age: 48 yrs Sex: Female : 1970 Arrival Date: 05/01/2019 Time: 12:03 Bed 19 Private MD: Diagnosis: Abdominal and pelvic pain;Constipation Presentation: 05/01 12:08 Presenting complaint: Patient states: stanley been having pain on my R lower abd that hj travels to my R lower back area; it started a week ago; reports nausea; denies fever and chills;. Transition of care: patient was not received from another setting of care. Onset of symptoms was May 01, 2019. Risk Assessment: Do you want to hurt yourself or someone else? Patient reports no desire to harm self or others. Initial Sepsis Screen: Does the patient meet any 2 criteria? No. Patient's initial sepsis screen is negative. Does the patient have a suspected source of infection? No. Patient's initial sepsis screen is negative. Care prior to arrival: None. 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 - Social history:: Smoking status: Patient/guardian denies using tobacco. - Ebola Screening: : Patient negative for fever greater than or equal to 101.5 degrees Fahrenheit, and additional compatible Ebola Virus Disease symptoms Patient denies exposure to infectious person Patient denies travel to an Ebola-affected area in the 21 days before illness onset. Screenin:17 Abuse screen: Denies threats or abuse. Denies injuries from another. Nutritional ca1 screening: No deficits noted. Tuberculosis screening: No symptoms or risk factors identified. Fall Risk IV access (20 points). Assessment: 12:17 General: Appears in no apparent distress. comfortable, Behavior is calm, cooperative, ca1 appropriate for age. Pain: Complains of pain in right lower quadrant and posterior aspect of right lateral abdomen Pain radiates to low back area Pain currently is 10 out of 10 on a pain scale. Quality of pain is described as crampy, stabbing, Pain began a week ago Is intermittent. Neuro: Level of Consciousness is awake, alert, obeys commands, Oriented to person, place, time, situation. Cardiovascular: Heart tones S1 S2 present Capillary refill < 3 seconds Patient's skin is warm and dry. Respiratory: Airway is patent Respiratory effort is even, unlabored, Respiratory pattern is regular, symmetrical, Breath sounds are clear bilaterally. GI: Abdomen is flat, non-distended, Bowel sounds present X 4 quads. Abd is soft X 4 quads Abdomen is tender to palpation in right lower quadrant and left lower quadrant Reports nausea. : Urine is clear. EENT: No deficits noted. No signs and/or symptoms were reported regarding the EENT system. Derm: Skin is intact, is healthy with good turgor, Skin is pink, warm \T\ dry. Musculoskeletal: Circulation, motion, and sensation intact. Capillary refill < 3 seconds, Range of motion: intact in all extremities. 13:15 Reassessment: Patient appears in no apparent distress at this time. Patient and/or ca1 family updated on plan of care and expected duration. Pain level reassessed. Patient is alert, oriented x 3, equal unlabored respirations, skin warm/dry/pink. 14:00 Reassessment: Patient appears in no apparent distress at this time. Patient and/or ca1 family updated on plan of care and expected duration. Pain level reassessed. Patient is alert, oriented x 3, equal unlabored respirations, skin warm/dry/pink. Pt back from CT scan. 15:00 Reassessment: Patient appears in no apparent distress at this time. Patient and/or ca1 family updated on plan of care and expected duration. Pain level reassessed. Patient is alert, oriented x 3, equal unlabored respirations, skin warm/dry/pink. 15:39 Reassessment: Patient appears in no apparent distress at this time. Patient is alert, ca1 oriented x 3, equal unlabored respirations, skin warm/dry/pink. Vital Signs: 12:10 BP 101 / 70; Pulse 67; Resp 18; Temp 98.1; Pulse Ox 98% on R/A; Weight 55.34 kg; Height hj 5 ft. 0 in. (152.40 cm); Pain 8/10; 13:15 BP 103 / 68; Pulse 61; Resp 17 S; Temp 98(O); Pulse Ox 99% ; ca1 14:00 BP 111 / 74; Pulse 59; Resp 17; Temp 98; Pulse Ox 100% ; ca1 15:19 BP 108 / 73; Pulse 65; Resp 17 S; Temp 97.9(O); Pulse Ox 100% on R/A; ca1 12:10 Body Mass Index 23.83 (55.34 kg, 152.40 cm) ED Course: 12:03 Patient arrived in ED. mr 12:09 Triage completed. hj 12:10 Arm band placed on right wrist. hj 12:13 Jose Diez MD is Attending Physician. kdr 12:17 Scarlet Leonardo, GT is Primary Nurse. ca1 12:17 Patient has correct armband on for positive identification. Placed in gown. Bed in low ca1 position. Call light in reach. Side rails up X 1. Pulse ox on. NIBP on. Warm blanket given. 12:17 No provider procedures requiring assistance completed. ca1 12:34 Initial lab(s) drawn, by me, sent to lab. Inserted saline lock: 20 gauge in right lt1 antecubital area, using aseptic technique. 13:[address] via wheelchair. ca1 13:31 CT Abd/Pelvis - IV Contrast Only In Process Unspecified. EDMS 13:50 US Transvaginal Study (Probe) In Process Unspecified. EDMS 15:40 IV discontinued, intact, bleeding controlled, No redness/swelling at site. Pressure ca1 dressing applied. Administered Medications: 12:34 Drug: NS 0.9% 1000 ml Route: IV; Rate: 1 bolus; Site: right antecubital; ca1 14:20 Follow up: IV Status: Completed infusion ca1 12:34 Drug: Zofran 4 mg Route: IVP; Site: right antecubital; ca1 14:20 Follow up: Response: No adverse reaction; Pain is decreased ca1 12:37 Drug: morphine 4 mg Route: IVP; Site: right antecubital; ca1 14:20 Follow up: Response: No adverse reaction; Nausea is decreased ca1 Outcome: 15:20 Discharge ordered by . kdr 15:40 Discharged to home ambulatory, with significant other. ca1 15:40 Condition: stable 15:40 Discharge instructions given to patient, Instructed on discharge instructions, follow up and referral plans. medication usage, Demonstrated understanding of instructions, follow-up care, medications, Prescriptions given X 2. 15:41 Patient left the ED. ca1 Signatures: Dispatcher [employer] EDMS Jose Dize MD MD [facility] Ramiro Mikki mr El Kan RN RN hj Acob, Cheryl, RN RN ca1 Jennifer, Melvi 1
== END 2019-05-01 15:41 | disposition home or self-care (01) ==
LOC: ER 11:58
DX: K59.00 Constipation, unspecified (principal)
CPT/HCPCS: 36415; 74177; 76830; 80048; 80076; 81003; 83690; 85025; 96361; 96374; 96375; 99284; J2405; J7030; Q9967

== ENCOUNTER 2021-12-24 11:26 | Emergency (ER) | payer BC ==
--- OUTSIDE RECORDS SUMMARY | 2021-12-24 11:28 | XMS REPORT | Continuity of Care Document ---
:1970 Author Organization [facility] t Address [address] [place] [address] Care Team Providers Name Role Phone PCP, DOES NOT HAVE A Primary Care Physician Unavailable Patrick Attending Clinician Unavailable Skip BENTLEY Attending Clinician Unavailable Doctor Unassigned, Name Attending Clinician Unavailable Sailaja DEL REAL T Attending Clinician Unavailable GERMAN Attending Clinician Unavailable Annie SAGASTUME Attending Clinician German GALVEZ Attending Clinician Payers Payer Name Policy Type Policy Number Effective Date Expiration Date S lisseth BE BCSHAHNAZ BLUE [id number] 2021 ADVANTAGE O 00:00:00 Problems Condition Condition Condition Status Onset Resolution Last Treating Co mments Source Name Details Category Date Date Treatment Clinician Date No known No known Disease Unive rs active active ity of problems problems [facility] Allergies, Adverse Reactions, Alerts Allergy Allergy Status Severity Reaction(s) Onset Inactive Treating Comm ents Source Name Type Date Date Clinician NO KNOWN Drug Active Univers ALLERGIE Class ity of S [facility] Social History Social Habit Start Date Stop Date Quantity Comments Source Exposure to Yes University of SARS-CoV-2 [facility] (event) [place] Tobacco use and 2021-11-09 2021-11-09 Never used Universit y of exposure 00:00:00 00:00:00 [facility] Alcohol intake 2021-11-09 2021-11-09 Current drinker Unive rsity of 00:00:00 00:00:00 of alcohol [facility] (finding) Branch Sex Assigned At [birth year] Universit y of 00:00:00 00:00:00 [facility] Smoking Status Start Date Stop Date Source Unknown if ever smoked [facility] Never smoker [facility] Medications Ordered Filled Start Stop Current Ordering Indication Dosage Frequency Signature Comments Components Source Medication Medication Date Date Medication? Clinician (SIG) Name Name methylPREDN Yes [id number] Take by Univers ISolone 11-09 mouth ity of (MEDROL, 00:00: SEE-INSTRU [place] as DUSTY,) 4 mg 00 CTIONS. Medica l tablets follow Branch package directions albuterol Yes [id number] 2{puff} Inhale 2 Univers 90 1-02 Puffs ity of mcg/actuati 00:00: every 6 [place] as on inhaler 00 (six) Medical hours as Branch needed for Wheezing or Shortness of Breath. methylPREDN Yes [id number] Take by Univers ISolone 11-09 mouth ity of (MEDROL, 00:00: SEE-INSTRU [place] as DUSTY,) 4 mg 00 CTIONS. Medica l tablets follow Branch package directions albuterol Yes [id number] 2{puff} Inhale 2 Univers 90 1-02 Puffs ity of mcg/actuati 00:00: every 6 [place] as on inhaler 00 (six) Medical hours as Branch needed for Wheezing or Shortness of Breath. methylPREDN Yes [id number] Take by Univers ISolone 11-09 mouth ity of (MEDROL, 00:00: SEE-INSTRU [place] as DUSTY,) 4 mg 00 CTIONS. Medica l tablets follow Branch package directions albuterol Yes [id number] 2{puff} Inhale 2 Univers 90 1-02 Puffs ity of mcg/actuati 00:00: every 6 [place] as on inhaler 00 (six) Medical hours as Branch needed for Wheezing or Shortness of Breath. bromphenira 2021- Yes [id number] 5mL Take 5 mL Univers mine-pseudo 11-09 by mouth 4 i ty of ephedrine-D 00:00: 05:59 (four) [place] as M (BROMFED 00 :00 times Medical DM) 2-30-10 daily as Bran ch mg/5 mL needed for syrup Cold symptoms for up to 10 days. bromphenira 2021- Yes [id number] 5mL Take 5 mL Univers mine-pseudo 11-09 by mouth 4 i ty of ephedrine-D 00:00: 05:59 (four) [place] as M (BROMFED 00 :00 times Medical DM) 2-30-10 daily as Bran ch mg/5 mL needed for syrup Cold symptoms for up to 10 days. Vital Signs Vital Name Observation Time Observation Value Comments Source Systolic blood 2021-11-09 18:20:00 120 [facility]Hg[facility] Diastolic blood 2021-11-09 18:20:00 81 mm[Hg[facility] Heart rate 2021-11-09 18:20:00 65 /min [facility] Body temperature 2021-11-09 18:20:00 36.72 Gi [facility] Respiratory rate 2021-11-09 18:20:00 19 /min [facility] Body height 2021-11-09 18:20:00 152.4 cm [facility] Body weight 2021-11-09 18:20:00 59.33 kg [facility] BMI 2021-11-09 18:20:00 25.55 kg/m2 [facility] Oxygen saturation in 2021-11-09 18:20:00 98 /min [facility] Arterial blood by [facility] Pulse oximetry Branch Procedures Procedure Date / Time Performed Performing Clinician [facility] e REFERRAL- 2021-11-20 06:01:00 Doctor Unassigned, No [facility] REQUEST/RESPONSE Name Medical Branch ASSIGNMENT OF BENEFITS 2021-11-09 17:34:19 Doctor Unassigned, No [facility] Name Medical Branch Encounters Start End Encounter Admission Attending Care Care Encounter Source Date/Time Date/Time Type Type Clinicians Facility Department ID 2021-12-03 Outpatient [facility] [id number] [facility] [address] 14:34:27 [facility] 2021-12-03 [facility] [id number] [address] 14[facility]34[facility]00 [facility] 2021-12-25 2021-12-25 Outpatient R [facility] [id number] Univers 09:15:00 09:15:00 ROBBIE [id number] arturo peters [facility] 2021-12-25 2021-12-25 Outpatient R [facility], [facility] [id number] Univers 09:15:00 09:15:00 ROBBIE peters [facility] 2021-12-19 2021-12-19 ambulatory [facility] [id number] [facility] 2021-12-09 2021-12-09 ambulatory [facility] [id number] [facility] 2021-12-03 2021-12-03 ambulatory [facility] [id number] [facility] 2021-12-03 2021-12-03 ambulatory [facility] [id number] [facility] 2021-12-03 2021-12-03 ambulatory [facility] [id number] [facility] 2021-11-25 2021-11-25 ambulatory [facility] [id number] [facility] 2021-11-20 2021-11-20 Orders Doctor SKYLER [id number] Univers 00:00:00 00:00:00 Only Unassigned, FILIBERTO [id number] ity of [place] [facility] [id number] Nato as [phone] [address] 2021-11-18 2021-11-18 ambulatory [facility] [id number] [facility] 2021-11-10 2021-11-10 Letter SKYLER Menard [id number] Univers 00:00:00 00:00:00 (Out) Steffanie Griffiths FILIBERTO [id number] it y of HOSPITAL [id number] [place] as [id number] [facility] 019 Branch 2021-11-09 2021-11-[address] [facility] [id number] Univers 11:40:00 12:52:07 RAQUEL ity [facility] 2021-11-09 2021-11-09 Urgent Ida Valencia [facility] [id number]. [id number] Univers 11:40:00 12:52:07 Raquel Gallo [facility] [id number] ity of [place] [id number] [place] as JEFF?BLEA [phone] [address] MED[facility] 2021-11-09 2021-11-09 Orders Doctor SKYLER [id number] Univers 00:00:00 00:00:00 Only Unassigned, FILIBERTO [id number] ity of [place] [facility] [id number] [place] as [phone] [facility] 009 Branch Results This patient has no known results.
[2021-12-24 13:36] LABS: Urine Blood Negative (Negative); Urine Glucose Negative (Negative); Urine Protein Negative (Negative); Urine Specific Gravity 1.015 (1.005-1.030)
[2021-12-24] MEDS ORDERED: LIDOCAINE 4% PATCH ONE (15:15)
[2021-12-24] MEDS ORDERED: MORPHINE 2 MG/ML SYR ONE (15:15)
[2021-12-24] MEDS ORDERED: MORPHINE 4 MG/ML SYR ONE (15:15)
--- NOTE | 2021-12-24 15:20 | RAD REPORT ---
EXAM DESCRIPTION: CT - Spine Lumbar Wo Con - 12/24/2021 3:05 pm CLINICAL HISTORY: LOWER BACK PAIN COMPARISON: No comparisons TECHNIQUE: Axial noncontrast CT imaging of the lumbar spine was performed with coronal and sagittal re-formatted images. All CT scans are performed using dose optimization technique as appropriate and may include automated exposure control or mA/KV adjustment according to patient size. FINDINGS: No acute lumbar spine fracture seen. No aggressive marrow pattern or malalignment. Mild mu ltilevel degenerative disc disease. Moderate neural foraminal narrowing noted on the left at L5-S1 se condary to a combination of factors. Mild neural foraminal narrowing on the left at L4-5. Broad-based disc bulge at L2-3 . No significant central spinal stenosis. Mild right neural foraminal narrowing . Paraspinal tissues are normal in thickness. No paraspinal abscess or hematoma seen. Intervertebral disc disease assessment is inherently limited by CT. Within these limitations, no high -grade canal stenosis suspected. IMPRESSION: No acute fracture of the lumbar spine. Consider MRI follow-up for assessment of disc disease if clinically desired.
--- NOTE | 2021-12-24 15:40 | ER ---
Nurse's Notes [facility] Name: Shayy Gonzales Age: 51 yrs Sex: Female : 1970 Arrival Date: 12/24/2021 Time: 11:29 Bed 28 Private MD: Diagnosis: Low back pain Presentation: 12/24 12:23 Chief complaint: Patient states: I am having back pain X1 week that is getting worse, jg9 no injuries reported, seen by PCP Dr. Nguyen who ordered a bone density scan last week but it's not scheduled until January. Pain is 7/10 and becoming unbearable. Coronavirus screen: Vaccine status: Patient reports receiving the 2nd dose of the covid vaccine. Ebola Screen: Patient negative for fever greater than or equal to 101.5 degrees Fahrenheit, and additional compatible Ebola Virus Disease symptoms Patient denies exposure to infectious person. Patient denies travel to an Ebola-affected area in the 21 days before illness onset. Initial Sepsis Screen: Does the patient meet any 2 criteria? No. Patient's initial sepsis screen is negative. Does the patient have a suspected source of infection? No. Patient's initial sepsis screen is negative. Risk Assessment: Do you want to hurt yourself or someone else? Patient reports no desire to harm self or others. 12:23 Method Of Arrival: Ambulatory j9 12:23 Acuity: RACHEL 4 jg9 12:28 Onset of symptoms is unknown. jg9 Triage Assessment: 12:27 General: Appears uncomfortable, Behavior is calm. 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 - Social history:: Smoking status: Patient denies any tobacco usage or history of. Screenin:27 Abuse screen: Denies threats or abuse. Denies injuries from another. Nutritional jg9 screening: No deficits noted. Tuberculosis screening: No symptoms or risk factors identified. Fall Risk None identified. Assessment: 13:59 Reassessment: pt placed in room from triage area. Will assume care at this time. ic1 General: Appears in no apparent distress. uncomfortable. Pain: Complains of pain in back. Neuro: Level of Consciousness is awake, alert, obeys commands, Oriented to person, place, time, situation. Cardiovascular: No deficits noted. Respiratory: No deficits noted. GI: No deficits noted. : Denies burning with urination, discharge, urgency. EENT: No deficits noted. Derm: No deficits noted. Musculoskeletal: Reports pain in back. Vital Signs: 12:23 BP 118 / 86; Pulse 68; Resp 13 S; Temp 98.2; Pulse Ox 99% ; Weight 59.87 kg (R); Height jg9 5 ft. 0 in. (152.40 cm) (R); 14:17 BP 114 / 73; Pulse 62; Resp 18; Pulse Ox 100% ; ic1 12:23 Body Mass Index 25.78 (59.87 kg, 152.40 cm) jg9 ED Course: 11:29 Patient arrived in ED. rg4 12:26 Triage completed. jg9 12:28 Arm band placed on right wrist. jg9 13:53 Luly Morrison, RN is Primary Nurse. ic1 13:59 Patient has correct armband on for positive identification. Bed in low position. Call ic1 light in reach. Side rails up X2. Pulse ox on. NIBP on. Warm blanket given. 13:59 No provider procedures requiring assistance completed. ic1 14:27 Yifan Peoples PA is PHCP. cp 14:27 Jose Diez MD is Attending Physician. cp 15:05 CT Lumbar Spine Wo Con In Process Unspecified. EDMS 16:00 Patient did not have IV access during this emergency room visit. iw Administered Medications: 15:27 Drug: morphine 5 mg Route: IM; Site: left gluteus; ic1 16:01 Follow up: Response: No adverse reaction; Pain is decreased iw 15:28 Drug: Lidoderm Patch 5 % (700 mg/patch) 1 patches Route: Topical; Site: affected area; ic1 Outcome: 15:39 Discharge ordered by . cp 16:00 Discharged to home ambulatory. iw 16:00 Condition: good 16:00 Discharge instructions given to patient, Instructed on discharge instructions, follow up and referral plans. medication usage, Demonstrated understanding of instructions, follow-up care, medications, Prescriptions given X 4. 16:01 Patient left the ED. iw Signatures: Dispatcher [employer] EDMaria D Montalvo, RN RN Yifan Yin PA PA cp Garcia, Rubi rg4 Aixa Mccracken RN RN jg9 Luly Morrison RN RN ic1
--- NOTE | 2021-12-24 15:40 | EDPHYS ---
Physician Documentation [facility] Name: Shayy Gonzales Age: 51 yrs Sex: Female : 1970 Arrival Date: 12/24/2021 Time: 11:29 Bed 28 Private MD: ED Physician Jose Diez HPI: 12/24 14:35 This 51 yrs old Female presents to ER via Ambulatory with complaints of Low cp Back Pain. 14:35 The patient presents with pain that is acute, with no known mechanism of injury. The cp symptoms are located in the right low back. 14:35 The pain does not radiate. cp 14:35 The problem was sustained from unknown cause. Onset: The symptoms/episode cp began/occurred 2 week(s) ago. Modifying factors: the patient symptoms are aggravated by bending, movement, standing. Severity of symptoms: in the emergency department the symptoms are unchanged, despite home interventions. Patient denies any radiation of pain and/or weakness of legs, denies saddle anesthesia, denies urinary and/or bowel incontinence. 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 - Social history:: Smoking status: Patient denies any tobacco usage or history of. ROS: 14:40 Constitutional: Negative for body aches, chills, fever, poor PO intake. cp 14:40 Eyes: Negative for injury, pain, redness, and discharge. cp 14:40 Neck: Negative for pain with movement, pain at rest, stiffness. 14:40 Cardiovascular: Negative for chest pain, palpitations. 14:40 Respiratory: Negative for cough, shortness of breath, wheezing. 14:40 Abdomen/GI: Negative for abdominal pain, nausea, vomiting, and diarrhea, bowel incontinence. 14:40 Back: Positive for pain at rest, pain with movement, of the right low back, Negative for injury or acute deformity, decreased range of motion. 14:40 : Negative for urinary symptoms, bladder incontinence. 14:40 Neuro: Negative for dizziness, numbness, tingling, weakness. 14:40 All other systems are negative. Exam: 14:45 Constitutional: The patient appears in no acute distress, alert, awake, non-toxic, well cp developed, well nourished, uncomfortable. 14:45 Head/Face: Normocephalic, atraumatic. cp 14:45 Eyes: Periorbital structures: appear normal, Conjunctiva: normal, no exudate, no injection, Sclera: no appreciated abnormality, Lids and lashes: appear normal, bilaterally. 14:45 Chest/axilla: Inspection: normal. 14:45 Cardiovascular: Rate: normal. 14:45 Respiratory: the patient does not display signs of respiratory distress, Respirations: normal, no use of accessory muscles, no retractions, labored breathing, is not present, Breath sounds: are clear throughout, no decreased breath sounds. 14:45 Abdomen/GI: Inspection: abdomen appears normal, Palpation: abdomen is soft and non-tender, in all quadrants. 14:45 Back: pain, that is moderate, of the right low back, ROM is painful, with all movement, vertebral tenderness, is not appreciated. 14:45 Neuro: Motor: moves all fours, strength is normal, Sensation: is normal, Deep tendon reflexes are 2+ (normal) in the right patellar, right Achilles, left patellar and left Achilles. Vital Signs: 12:23 BP 118 / 86; Pulse 68; Resp 13 S; Temp 98.2; Pulse Ox 99% ; Weight 59.87 kg (R); Height jg9 5 ft. 0 in. (152.40 cm) (R); 14:17 BP 114 / 73; Pulse 62; Resp 18; Pulse Ox 100% ; ic1 12:23 Body Mass Index 25.78 (59.87 kg, 152.40 cm) jg9 MDM: 14:29 Patient medically screened. cp 15:00 Differential diagnosis: sciatica, Herniated disc UTI, kidney stone, spinal stenosis. cp 15:38 Data reviewed: vital signs, nurses notes, lab test result(s), radiologic studies, CT cp scan. 15:38 Counseling: I had a detailed discussion with the patient and/or guardian regarding: the cp historical points, exam findings, and any diagnostic results supporting the discharge/admit diagnosis, lab results, radiology results, the need for outpatient follow up, a family practitioner. Response to treatment: the patient's symptoms have markedly improved after treatment, and as a result, I will discharge patient. ED course: Patient reports pain improved with meds. CT results and symptoms negative for emergent surgical consult. Will discharge to home for continued monitoring. 12/24 13:37 Order name: Urine Dipstick-Ancillary; Complete Time: 14:53 EDKY 12/24 14:54 Order name: CT Lumbar Spine Wo Con; Complete Time: 15:28 cp 12/24 12:31 Order name: Urine Dipstick-Ancillary (obtain specimen); Complete Time: 14:30 jg9 Administered Medications: 15:27 Drug: morphine 5 mg Route: IM; Site: left gluteus; ic1 16:01 Follow up: Response: No adverse reaction; Pain is decreased iw 15:28 Drug: Lidoderm Patch 5 % (700 mg/patch) 1 patches Route: Topical; Site: affected area; ic1 Disposition Summary: 12/24/21 15:39 Discharge Ordered Location: Home cp Problem: new cp Symptoms: have improved cp Condition: Stable cp Diagnosis - Low back pain cp Followup: cp - With: Private Physician - When: 1 week - Reason: Recheck today's complaints Discharge Instructions: - Discharge Summary Sheet cp - Acute Back Pain, Adult cp - Heat Therapy cp - Back Exercises cp Forms: - Medication Reconciliation Form cp - Thank You Letter cp - Antibiotic Education cp - Prescription Opioid Use cp - Work release form iw Prescriptions: - Lidoderm 5 % Topical adhesive patch,medicated - apply 1 patch by TOPICAL route once daily; 1 box; Refills: 0, Product Selection cp Permitted - Cyclobenzaprine 10 mg Oral Tablet - take 1 tablet by ORAL route every 8 hours As needed; 20 tablet; Refills: 0, cp Product Selection Permitted - Tramadol 50 mg Oral Tablet - take 1 tablet by ORAL route every 8 hours as needed; 12 tablet; Refills: 0, cp Product Selection Permitted - Medrol (Basilio) 4 mg Oral Tablets, Dose Pack - take 1 tablet by ORAL route as directed - follow package instructions; 1 cp packet; Refills: 0, Product Selection Permitted Addendum: 12/26/2021 19:15 Co-signature as Attending Physician, Jose Diez MD I agree with the assessment and k dr plan of care. Signatures: Dispatcher [employer] [facility] Rittger, Jose, Maria D Carmichael MD RN RN iw Yifan Peoples PA PA cp Gilmore, Jennifer RN RN jg9 Luly Morrison RN RN ic1 Corrections: (The following items were deleted from the chart) 12/24 14:30 12:31 Urine Test ordered. jg9 iw
[2021-12-24 16:29] VITALS: BP 114/73; O2SAT 100
[2021-12-24 16:30] VITALS: TEMP 98.2
== END 2021-12-24 16:01 | disposition home or self-care (01) ==
LOC: ER 11:26
DX: M54.50 Low back pain, unspecified (principal)
CPT/HCPCS: 81003; 72131; 96372; 99284; J2270

== ENCOUNTER → 2023-12-07 | Emergency (ER) | payer BC ==
--- OUTSIDE RECORDS SUMMARY | 2023-12-07 12:22 | XMS REPORT | Continuity of Care Document ---
Author Name Unknown Address [address] [facility] [address] [place] [address] [facility] Address [address] [facility] [address] [place] [address] Care Team Providers Care Can Filler Name Role Phone MARYBEL LINDSEY Primary Care Physician Unavailab Marybel Amaro Attending Clinician Unavailable MANAN SALEH Attending Clinician Unavailable Delfino QUINTEROS, Manan Attending Clinician [phone] Unknown, Attending Attending Clinician Unavailab SHILA Anderson Attending Clinician Unavailable Shila Espinosa Attending Clinician [phone] Anuj Guillen MD Attending Clinician [phone] ANUJ GUILLEN Attending Clinician Unavailable Doctor Unassigned, [place] Attending Clinician U navailable [email or web address] Attending Clinician Unavaila ble UNKNOWN, ATTENDING Attending Clinician Unavailab Mikie Argueta MD Attending Clinician [phone] EbCeleste Avila Attending Clinician [phone] Only, Ang Db Test Attending Clinician UnavailBrittney Delgado RN Attending Clinician Unavailable LIZZ SHI Attending Clinician Unavailable Lizz Smith Attending Clinician ERNESTO MALCOLM Attending Clinician Unavailable Ernesto Malcolm MD Attending Clinician MIKIE MAXWELL Attending Clinician Unavail able MIKIE MAXWELL Attending Clinician Unavail able ROBBIE BENTLEY Attending Clinician Unavail able BEV PORTER Attending Clinician Unavailable [email or web address] Admitting Clinician Unavaila ble MIKIE MAXWELL Admitting Clinician Unavail able Payers Payer Name Policy Type Policy Number Effective Date Expirati on Date Source HIM BCBS BLUE ADVANTAGE HMO [id number] 2021 00:00:00 [employer] Blue Shield HMO 6 [id number] 2021 00:00:00 [facility] Problems Condition Name Condition Details Condition Category Status Onset Date Resolution Date Last Treatment Date Treating Clinician Comments Source Mild dysplasia of cervix Mild dysplasia of cervix Disease Active 01-09 00:00: 00 Overview: Formattin g of this note might be different from the original. No follow up done [facility] [id number] Atrophic vaginitis Problem [facility] [id number] Disc disease, degenerati ve, lumbar or lumbosacra l Problem [facility] [id number] Spondylosi s of lumbar spine Problem [facility] [id number] Carpal tunnel syndrome of left wrist Problem [facility] [id number] Paresthesi a of skin Problem [facility] [id number] Low back pain, unspecifie d Problem [facility] [id number] Pure hyperchole sterolemia Problem [facility] [id number] Carpal tunnel syndrome, bilateral upper limbs Problem [facility] [id number] Unspecifie d hypothyroi dism Problem [facility] [id number] Other chronic pain Problem [facility] [id number] Gastroesop hageal reflux disease without esophagiti s Problem Common [facility] Allergic rhinitis Non-season al allergic rhinitis, unspecifie d trigger Problem [facility] No known active problems No known active problems Disease [facility] Allergies, Adverse Reactions, Alerts Allergy Name Allergy Type Status Severity Reaction(s) Onset Date Inactive Date Treating Clinician Comments Source NO KNOWN ALLERGIE S Drug Class Active [facility] Social History Social Habit Start Date Stop Date Quantity Comments Source History of Tobacco Use [facility] Sex Assigned At [facility] History SDOH Alcohol Binge [facility] SDOH Alcohol Frequency [facility] History SDOH Alcohol Std Drinks [facility] History of Social function 2023-11-15 00:00:00 2023-11-15 00:00:00 [facility] Alcohol intake 2023-11-15 00:00:00 2023-11-15 00:00:00 Current drinker of alcohol (finding) [facility] Exposure to SARS-CoV-2 (event) 2022-12-04 00:00:00 2022-12-14 12:17:00 Not sure [facility] Tobacco use and exposure 2021-11-09 00:00:00 2021-11-09 00:00:00 Smokeless tobacco non-user [facility] Alcohol Comment 2013-01-09 00:00:00 2013-01-09 00:00:00 every couple of weeks > 6 beers [facility] Smoking Status Start Date Stop Date Source Never smoked tobacco [facility] Medications Ordered Medication Name Filled Medication Name Start Date Stop Date Current Medication? Ordering Clinician Indication Dosage Frequency Signature (SIG) Comments Components Source OMEPRAZOLE ORAL 11-15 09:08: 33 Yes Take by mouth. [facility] OMEPRAZOLE ORAL 11-15 09:08: 33 Yes Take by mouth. [facility] ibuprofen 600 mg tablet 11-15 00:00: 00 Yes [id number] 600mg Take 1 tablet by mouth every 6 (six) hours as needed for Pain (scale 1-3) or Pain (scale 4-6). [facility] benzonatate 100 mg capsule 11-15 00:00: 00 Yes [id number] 200mg Take 2 capsules by mouth every 8 (eight) hours as needed for Cough. [facility] promethazin e-dextromet horphan 6.25-15 mg/5 mL syrup 11-15 00:00: 00 Yes [id number] 5mL Take 5 mL by mouth 4 (four) times daily as needed for Cough. [facility] ibuprofen 600 mg tablet 11-15 00:00: 00 Yes [id number] 600mg Take 1 tablet by mouth every 6 (six) hours as needed for Pain (scale 1-3) or Pain (scale 4-6). [facility] benzonatate 100 mg capsule 11-15 00:00: 00 Yes [id number] 200mg Take 2 capsules by mouth every 8 (eight) hours as needed for Cough. [facility] promethazin e-dextromet horphan 6.25-15 mg/5 mL syrup 11-15 00:00: 00 Yes [id number] 5mL Take 5 mL by mouth 4 (four) times daily as needed for Cough. [facility] amoxicillin -clavulanat e (AUGMENTIN) 875-125 mg per tablet 11-15 00:00: 00 11-26 05:59 :00 Yes [id number] 1{tbl} Take 1 tablet by mouth in the morning and 1 tablet in the evening. Do all this for 10 days. [facility] amoxicillin -clavulanat e (AUGMENTIN) 875-125 mg per tablet 11-15 00:00: 00 11-26 05:59 :00 Yes [id number] 1{tbl} Take 1 tablet by mouth in the morning and 1 tablet in the evening. Do all this for 10 days. [facility] triamcinolo ne acetonide (KENALOG) injection 20 mg 2022-11 20:15: 00 10-25 19:39 :00 No [id number] 20mg [facility] triamcinolo ne acetonide (KENALOG) injection 20 mg 2022-11 20:15: 00 10-25 19:38 :00 No [id number] [facility]mg [facility] triamcinolo ne acetonide (KENALOG) injection 20 mg 2022-11 20:15: 00 10-25 19:38 :00 No [id number] 20mg 20 mg, Intramuscu lar, ONCE, 1 dose, On Wed10/25/23 at 1415, Routine [facility] triamcinolo ne acetonide (KENALOG) injection 20 mg 2022-11 20:15: 00 10-25 19:39 :00 No [id number] 20mg 20 mg, Intramuscu lar, ONCE, 1 dose, On Wed10/25/23 at 1415, Routine [facility] triamcinolo ne acetonide (KENALOG) injection 20 mg 2022-11 20:15: 00 10-25 19:39 :00 No [id number] 20mg [facility] triamcinolo ne acetonide (KENALOG) injection 20 mg 2022-11 20:15: 00 10-25 19:38 :00 No [id number] 20mg [facility] triamcinolo ne acetonide (KENALOG) injection 20 mg 2022-11 20:15: 00 10-25 19:38 :00 No [id number] 20mg 20 mg, Intramuscu lar, ONCE, 1 dose, On Wed10/25/23 at 1415, Routine [facility] triamcinolo ne acetonide (KENALOG) injection 20 mg 2022-11 20:15: 00 10-25 19:39 :00 No [id number] 20mg 20 mg, Intramuscu lar, ONCE, 1 dose, On Wed10/25/23 at 1415, Routine [facility] triamcinolo ne acetonide (KENALOG) injection 20 mg 2022-11 20:15: 00 10-25 19:39 :00 No [id number] 20mg [facility] triamcinolo ne acetonide (KENALOG) injection 20 mg 2022-11 20:15: 00 10-25 19:38 :00 No [id number] 20mg [facility] triamcinolo ne acetonide (KENALOG) injection 20 mg 2022-11 20:15: 00 10-25 19:38 :00 No [id number] 20mg 20 mg, Intramuscu lar, ONCE, 1 dose, On Wed10/25/23 at 1415, Routine [facility] triamcinolo ne acetonide (KENALOG) injection 20 mg 2022-11 20:15: 00 10-25 19:39 :00 No [id number] 20mg 20 mg, Intramuscu lar, ONCE, 1 dose, On Wed10/25/23 at 1415, Routine [facility] Macrobid 100 MG Macrobid 100 MG 2022-11 2- 00:00: 00 No 1{capsu le} BID Macrobid 100 MG Macrobid 100 MG Macrobid 100 MG 2022-11 2-04 00:00: 00 No 1{capsu le} BID Macrobid 100 MG Macrobid 100 MG Macrobid 100 MG 2022-11 2-04 00:00: 00 No 1{capsu le} BID Macrobid 100 MG Macrobid 100 MG Macrobid 100 MG 2022-11 2-04 00:00: 00 No 1{capsu le} BID Macrobid 100 MG Macrobid 100 MG Macrobid 100 MG 2022-11 2-04 00:00: 00 No 1{capsu le} BID Macrobid 100 MG Macrobid 100 MG Macrobid 100 MG 2022-11 2-04 00:00: 00 No 1{capsu le} BID Macrobid 100 MG Macrobid 100 MG Macrobid 100 MG 2022-11 2-04 00:00: 00 No 1{capsu le} BID Macrobid 100 MG Macrobid 100 MG Macrobid 100 MG 2022-11 2-04 00:00: 00 No 1{capsu le} BID Macrobid 100 MG Macrobid 100 MG Macrobid 100 MG 2022-11 2-04 00:00: 00 No 1{capsu le} BID Macrobid 100 MG triamcinolo ne acetonide (KENALOG) injection 40 mg 03-19 20:45: 00 03-19 20:02 :00 No [id number] 40mg [facility] triamcinolo ne acetonide (KENALOG) injection 40 mg 03-19 20:45: 00 03-19 20:02 :00 No [id number] 40mg 40 mg, Intramuscu lar, ONCE, 1 dose, On Wed03/19/23 at 1545, Routine [facility] triamcinolo ne acetonide (KENALOG) injection 40 mg 03-19 20:45: 00 03-19 20:02 :00 No [id number] 40mg [facility] triamcinolo ne acetonide (KENALOG) injection 40 mg 03-19 20:45: 00 03-19 20:02 :00 No [id number] 40mg 40 mg, Intramuscu lar, ONCE, 1 dose, On Wed03/19/23 at 1545, Routine [facility] triamcinolo ne acetonide (KENALOG) injection 40 mg 03-19 20:45: 00 03-19 20:02 :00 No [id number] 40mg [facility] triamcinolo ne acetonide (KENALOG) injection 40 mg 03-19 20:45: 00 03-19 20:02 :00 No [id number] 40mg 40 mg, Intramuscu lar, ONCE, 1 dose, On Wed03/19/23 at 1545, Routine [facility] predniSONE 20 mg tablet 2-06 00:00: 00 12-20 05:59 :00 No [id number] 20mg Take 1 tablet by mouth in the morning for 5 days. [facility] Levothyroxi ne Sodium 100 MCG Levothyroxi ne Sodium 100 MCG 2021-11 00:00: 00 No QD Levothyrox ine Sodium 100 MCG Levothyroxi ne Sodium 100 MCG Levothyroxi ne Sodium 100 MCG 2021-11 00:00: 00 No QD Levothyrox ine Sodium 100 MCG Levothyroxi ne Sodium 100 MCG Levothyroxi ne Sodium 100 MCG 2021-11 00:00: 00 No QD Levothyrox ine Sodium 100 MCG Levothyroxi ne Sodium 100 MCG Levothyroxi ne Sodium 100 MCG 2021-11 00:00: 00 No QD Levothyrox ine Sodium 100 MCG Levothyroxi ne Sodium 100 MCG Levothyroxi ne Sodium 100 MCG 2021-11 00:00: 00 No QD Levothyrox ine Sodium 100 MCG Levothyroxi ne Sodium 100 MCG Levothyroxi ne Sodium 100 MCG 2021-11 00:00: 00 No QD Levothyrox ine Sodium 100 MCG Levothyroxi ne Sodium 100 MCG Levothyroxi ne Sodium 100 MCG 2021-11 00:00: 00 No QD Levothyrox ine Sodium 100 MCG Levothyroxi ne Sodium 100 MCG Levothyroxi ne Sodium 100 MCG 2021-11 00:00: 00 No QD Levothyrox ine Sodium 100 MCG Levothyroxi ne Sodium 100 MCG Levothyroxi ne Sodium 100 MCG 2021-11 00:00: 00 No QD Levothyrox ine Sodium 100 MCG Levothyroxi ne Sodium 100 MCG Levothyroxi ne Sodium 100 MCG 2021-11 00:00: 00 No QD Levothyrox ine Sodium 100 MCG Levothyroxi ne Sodium 100 MCG Levothyroxi ne Sodium 100 MCG 2021-11 00:00: 00 No QD Levothyrox ine Sodium 100 MCG Levothyroxi ne Sodium 100 MCG Levothyroxi ne Sodium 100 MCG 2021-11- 00:00: 00 No QD Levothyrox ine Sodium 100 MCG Levothyroxi ne Sodium 100 MCG Levothyroxi ne Sodium 100 MCG 2021-11 00:00: 00 No QD Levothyrox ine Sodium 100 MCG Levothyroxi ne Sodium 100 MCG Levothyroxi ne Sodium 100 MCG 2021-11- 00:00: 00 No QD Levothyrox ine Sodium 100 MCG Levothyroxi ne Sodium 100 MCG Levothyroxi ne Sodium 100 MCG 2021-11 2- 00:00: 00 No QD Levothyrox ine Sodium 100 MCG Levothyroxi ne Sodium 100 MCG Levothyroxi ne Sodium 100 MCG 2021-11 2- 00:00: 00 No QD Levothyrox ine Sodium 100 MCG Levothyroxi ne Sodium 100 MCG Levothyroxi ne Sodium 100 MCG 2021-11 2- 00:00: 00 No QD Levothyrox ine Sodium 100 MCG Levothyroxi ne Sodium 100 MCG Levothyroxi ne Sodium 100 MCG 2021-11 2- 00:00: 00 No QD Levothyrox ine Sodium 100 MCG Levothyroxi ne Sodium 100 MCG Levothyroxi ne Sodium 100 MCG 2021-11 2- 00:00: 00 No QD Levothyrox ine Sodium 100 MCG Levothyroxi ne Sodium 100 MCG Levothyroxi ne Sodium 100 MCG 2021-11 2- 00:00: 00 No QD Levothyrox ine Sodium 100 MCG Levothyroxi ne Sodium 100 MCG Levothyroxi ne Sodium 100 MCG 2021-11 2- 00:00: 00 No QD Levothyrox ine Sodium 100 MCG Levothyroxi ne Sodium 100 MCG Levothyroxi ne Sodium 100 MCG 2021-11 2- 00:00: 00 No QD Levothyrox ine Sodium 100 MCG Levothyroxi ne Sodium 100 MCG Levothyroxi ne Sodium 100 MCG 2021-11 2- 00:00: 00 No QD Levothyrox ine Sodium 100 MCG triamcinolo ne acetonide (KENALOG) injection 20 mg 2021-1110 20:00: 00 08-17 19:18 :00 No [id number] 20mg [facility] triamcinolo ne acetonide (KENALOG) injection 20 mg 2021-1110 20:00: 00 08-17 19:18 :00 No [id number] 20mg [facility] triamcinolo ne acetonide (KENALOG) injection 20 mg 2021-11 0-10 20:00: 00 08-17 19:18 :00 No [id number] 20mg 20 mg, Intralesio nal, ONCE, 1 dose, On Wed08/17/22 at 1500, Routine [facility] triamcinolo ne acetonide (KENALOG) injection 20 mg 2021-11 010 20:00: 00 08-17 19:18 :00 No [id number] 20mg 20 mg, Intralesio nal, ONCE, 1 dose, On Wed08/17/22 at 1500, Routine [facility] triamcinolo ne acetonide (KENALOG) injection 20 mg 2021-1110 20:00: 00 08-17 19:18 :00 No [id number] 20mg [facility] triamcinolo ne acetonide (KENALOG) injection 20 mg 2021-11 20:00: 00 08-17 19:18 :00 No [id number] 20mg [facility] triamcinolo ne acetonide (KENALOG) injection 20 mg 2021-11 20:00: 00 08-17 19:18 :00 No [id number] 20mg 20 mg, Intralesio nal, ONCE, 1 dose, On Wed08/17/22 at 1500, Routine [facility] triamcinolo ne acetonide (KENALOG) injection 20 mg 2021-1110 20:00: 00 08-17 19:18 :00 No [id number] 20mg 20 mg, Intralesio nal, ONCE, 1 dose, On Wed08/17/22 at 1500, Routine [facility] triamcinolo ne acetonide (KENALOG) injection 20 mg 2021-1110 20:00: 00 08-17 19:18 :00 No [id number] 20mg [facility] triamcinolo ne acetonide (KENALOG) injection 20 mg 2021-11 010 20:00: 00 08-17 19:18 :00 No [id number] 20mg [facility] triamcinolo ne acetonide (KENALOG) injection 20 mg 2021-11 0 20:00: 00 08-17 19:18 :00 No [id number] 20mg 20 mg, Intralesio nal, ONCE, 1 dose, On Wed08/17/22 at 1500, Routine [facility] triamcinolo ne acetonide (KENALOG) injection 20 mg 2021-11 20:00: 00 08-17 19:18 :00 No [id number] 20mg 20 mg, Intralesio nal, ONCE, 1 dose, On Wed08/17/22 at 1500, Routine [facility] bromphenira mine-pseudo ephedrine-D M (BROMFED DM) 2-30-10 mg/5 mL syrup 05-20 00:00: 00 Yes [id number] 5mL Take 5 mL by mouth 4 (four) times daily as needed for Congestion /Allergies . [facility] guaiFENesin 400 mg tablet 05-20 00:00: 00 Yes [id number] 400mg Take 1 tablet by mouth every 4 (four) hours as needed for Cough. [facility] benzonatate 100 mg capsule 05-20 00:00: 00 Yes [id number] 200mg Take 2 capsules by mouth every 8 (eight) hours as needed for Cough. [facility] nirmatrelvi r-ritonavir (PAXLOVID, EUA,) 150 mg x 2- 100 mg tablet 05-20 00:00: 00 Yes [id number] 3{tbl} Take 3 tablets by mouth in the morning and 3 tablets in the evening. [facility] bromphenira mine-pseudo ephedrine-D M (BROMFED DM) 2-30-10 mg/5 mL syrup 05-20 00:00: 00 Yes [id number] 5mL Take 5 mL by mouth 4 (four) times daily as needed for Congestion /Allergies . [facility] guaiFENesin 400 mg tablet 05-20 00:00: 00 Yes [id number] 400mg Take 1 tablet by mouth every 4 (four) hours as needed for Cough. [facility] benzonatate 100 mg capsule 05-20 00:00: 00 Yes [id number] 200mg Take 2 capsules by mouth every 8 (eight) hours as needed for Cough. [facility] nirmatrelvi r-ritonavir (PAXLOVID, EUA,) 150 mg x 2- 100 mg tablet 05-20 00:00: 00 Yes [id number] 3{tbl} Take 3 tablets by mouth in the morning and 3 tablets in the evening. [facility] bromphenira mine-pseudo ephedrine-D M (BROMFED DM) 2-30-10 mg/5 mL syrup 05-20 00:00: 00 Yes [id number] 5mL Take 5 mL by mouth 4 (four) times daily as needed for Congestion /Allergies . [facility] guaiFENesin 400 mg tablet 05-20 00:00: 00 Yes [id number] 400mg Take 1 tablet by mouth every 4 (four) hours as needed for Cough. [facility] benzonatate 100 mg capsule 05-20 00:00: 00 Yes [id number] 200mg Take 2 capsules by mouth every 8 (eight) hours as needed for Cough. [facility] nirmatrelvi r-ritonavir (PAXLOVID, EUA,) 150 mg x 2- 100 mg tablet 05-20 00:00: 00 Yes [id number] 3{tbl} Take 3 tablets by mouth in the morning and 3 tablets in the evening. [facility] bromphenira mine-pseudo ephedrine-D M (BROMFED DM) 2-30-10 mg/5 mL syrup 05-20 00:00: 00 Yes [id number] 5mL Take 5 mL by mouth 4 (four) times daily as needed for Congestion /Allergies . [facility] guaiFENesin 400 mg tablet 05-20 00:00: 00 Yes [id number] 400mg Take 1 tablet by mouth every 4 (four) hours as needed for Cough. [facility] benzonatate 100 mg capsule 05-20 00:00: 00 Yes [id number] 200mg Take 2 capsules by mouth every 8 (eight) hours as needed for Cough. [facility] nirmatrelvi r-ritonavir (PAXLOVID, EUA,) 150 mg x 2- 100 mg tablet 05-20 00:00: 00 Yes [id number] 3{tbl} Take 3 tablets by mouth in the morning and 3 tablets in the evening. [facility] bromphenira mine-pseudo ephedrine-D M (BROMFED DM) 2-30-10 mg/5 mL syrup 05-20 00:00: 00 Yes [id number] 5mL Take 5 mL by mouth 4 (four) times daily as needed for Congestion /Allergies . [facility] guaiFENesin 400 mg tablet 05-20 00:00: 00 Yes [id number] 400mg Take 1 tablet by mouth every 4 (four) hours as needed for Cough. [facility] benzonatate 100 mg capsule 05-20 00:00: 00 Yes [id number] 200mg Take 2 capsules by mouth every 8 (eight) hours as needed for Cough. [facility] nirmatrelvi r-ritonavir (PAXLOVID, EUA,) 150 mg x 2- 100 mg tablet 05-20 00:00: 00 Yes [id number] 3{tbl} Take 3 tablets by mouth in the morning and 3 tablets in the evening. [facility] bromphenira mine-pseudo ephedrine-D M (BROMFED DM) 2-30-10 mg/5 mL syrup 05-20 00:00: 00 Yes [id number] 5mL Take 5 mL by mouth 4 (four) times daily as needed for Congestion /Allergies . [facility] guaiFENesin 400 mg tablet 05-20 00:00: 00 Yes [id number] 400mg Take 1 tablet by mouth every 4 (four) hours as needed for Cough. [facility] benzonatate 100 mg capsule 05-20 00:00: 00 Yes [id number] 200mg Take 2 capsules by mouth every 8 (eight) hours as needed for Cough. [facility] nirmatrelvi r-ritonavir (PAXLOVID, EUA,) 150 mg x 2- 100 mg tablet 05-20 00:00: 00 Yes [id number] 3{tbl} Take 3 tablets by mouth in the morning and 3 tablets in the evening. [facility] bromphenira mine-pseudo ephedrine-D M (BROMFED DM) 2-30-10 mg/5 mL syrup 05-20 00:00: 00 Yes [id number] 5mL Take 5 mL by mouth 4 (four) times daily as needed for Congestion /Allergies . [facility] guaiFENesin 400 mg tablet 05-20 00:00: 00 Yes [id number] 400mg Take 1 tablet by mouth every 4 (four) hours as needed for Cough. [facility] benzonatate 100 mg capsule 05-20 00:00: 00 Yes [id number] 200mg Take 2 capsules by mouth every 8 (eight) hours as needed for Cough. [facility] nirmatrelvi r-ritonavir (PAXLOVID, EUA,) 150 mg x 2- 100 mg tablet 05-20 00:00: 00 Yes [id number] 3{tbl} Take 3 tablets by mouth in the morning and 3 tablets in the evening. [facility] bromphenira mine-pseudo ephedrine-D M (BROMFED DM) 2-30-10 mg/5 mL syrup 05-20 00:00: 00 Yes [id number] 5mL Take 5 mL by mouth 4 (four) times daily as needed for Congestion /Allergies . [facility] guaiFENesin 400 mg tablet 05-20 00:00: 00 Yes [id number] 400mg Take 1 tablet by mouth every 4 (four) hours as needed for Cough. [facility] benzonatate 100 mg capsule 05-20 00:00: 00 Yes [id number] 200mg Take 2 capsules by mouth every 8 (eight) hours as needed for Cough. [facility] nirmatrelvi r-ritonavir (PAXLOVID, EUA,) 150 mg x 2- 100 mg tablet -13 00:00: 00 Yes [id number] 3{tbl} Take 3 tablets by mouth in the morning and 3 tablets in the evening. [facility] bromphenira mine-pseudo ephedrine-D M (BROMFED DM) 2-30-10 mg/5 mL syrup -13 00:00: 00 12-14 00:00 :00 No [id number] 5mL Take 5 mL by mouth 4 (four) times daily as needed for Congestion /Allergies . [facility] guaiFENesin 400 mg tablet 05-20 00:00: 00 12-14 00:00 :00 No [id number] 400mg Take 1 tablet by mouth every 4 (four) hours as needed for Cough. [facility] benzonatate 100 mg capsule 05-20 00:00: 00 12-14 00:00 :00 No [id number] 200mg Take 2 capsules by mouth every 8 (eight) hours as needed for Cough. [facility] nirmatrelvi r-ritonavir (PAXLOVID, EUA,) 150 mg x 2- 100 mg tablet 05-20 00:00: 00 12-14 00:00 :00 No [id number] 3{tbl} Take 3 tablets by mouth in the morning and 3 tablets in the evening. [facility] Valtrex 500 MG Valtrex 500 MG 4- 00:00: 00 09-28 00:00 :00 No 1{table t} QD Valtrex 500 MG Valtrex 500 MG Valtrex 500 MG 2021- 4-13 00:00: 00 09-28 00:00 :00 No 1{table t} QD Valtrex 500 MG Valtrex 500 MG Valtrex 500 MG 0 4-13 00:00: 00 09-28 00:00 :00 No 1{table t} QD Valtrex 500 MG Valtrex 500 MG Valtrex 500 MG 2021-0 4- 00:00: 00 09-28 00:00 :00 No 1{table t} QD Valtrex 500 MG Valtrex 500 MG Valtrex 500 MG 2021-0 4-13 00:00: 00 09-28 00:00 :00 No 1{table t} QD Valtrex 500 MG Valtrex 500 MG Valtrex 500 MG 2-0 4-13 00:00: 00 07 00:00 :00 No 1{table t} QD Valtrex 500 MG gabapentin 100 mg capsule 2021-0 01-31 00:00: 00 Yes [facility] traMADoL 50 mg tablet 2021-0 01-31 00:00: 00 Yes [facility] gabapentin 100 mg capsule 2021-0 01-31 00:00: 00 Yes [facility] traMADoL 50 mg tablet 2021-0 01-31 00:00: 00 Yes [facility] gabapentin 100 mg capsule 2021-0 01-31 00:00: 00 Yes [facility] traMADoL 50 mg tablet 2021-0 01-31 00:00: 00 Yes [facility] gabapentin 100 mg capsule 2021-0 01-31 00:00: 00 Yes [facility] traMADoL 50 mg tablet 0 01-31 00:00: 00 Yes [facility] [facility] gabapentin 100 mg capsule 2021-0 01-31 00:00: 00 Yes [facility] traMADoL 50 mg tablet 2021-0 01-31 00:00: 00 Yes [facility] gabapentin 100 mg capsule 2021-0 01-31 00:00: 00 Yes [facility] traMADoL 50 mg tablet 2021-0 01-31 00:00: 00 Yes [facility] gabapentin 100 mg capsule 2021-0 01-31 00:00: 00 Yes [facility] traMADoL 50 mg tablet 2021-0 01-31 00:00: 00 Yes [facility] gabapentin 100 mg capsule 2021-0 01-31 00:00: 00 Yes [facility] traMADoL 50 mg tablet 2021-0 01-31 00:00: 00 Yes [facility] gabapentin 100 mg capsule 2021-0 01-31 00:00: 00 Yes [facility] traMADoL 50 mg tablet 2021-0 01-31 00:00: 00 Yes [facility] gabapentin 100 mg capsule 2021-0 01-31 00:00: 00 Yes [facility] traMADoL 50 mg tablet 2021-0 01-31 00:00: 00 Yes [facility] gabapentin 100 mg capsule 2021-0 01-31 00:00: 00 Yes [facility] traMADoL 50 mg tablet 2021-0 01-31 00:00: 00 Yes [facility] gabapentin 100 mg capsule 2021-0 01-31 00:00: 00 Yes [facility] traMADoL 50 mg tablet 2021-0 01-31 00:00: 00 Yes [facility] gabapentin 100 mg capsule 2021-0 01-31 00:00: 00 Yes [facility] traMADoL 50 mg tablet 2021-0 01-31 00:00: 00 Yes [facility] gabapentin 100 mg capsule 2021-0 01-31 00:00: 00 Yes [facility] traMADoL 50 mg tablet 2021-0 01-31 00:00: 00 Yes [facility] gabapentin 100 mg capsule 2021-0 01-31 00:00: 00 12-14 00:00 :00 No [facility] traMADoL 50 mg tablet 2021-0 01-31 00:00: 00 12-14 00:00 :00 No [facility] gabapentin 600 mg tablet 2021-0 01-30 00:00: 00 Yes [facility] gabapentin 600 mg tablet 2-0 01-30 00:00: 00 Yes [facility] gabapentin 600 mg tablet 2-0 01-30 00:00: 00 Yes [facility] gabapentin 600 mg tablet 2-0 01-30 00:00: 00 Yes [facility] gabapentin 600 mg tablet 2-0 01-30 00:00: 00 Yes [facility] gabapentin 600 mg tablet 2-0 01-30 00:00: 00 Yes [facility] gabapentin 600 mg tablet 2-0 3-25 00:00: 00 Yes [facility] gabapentin 600 mg tablet 2-0 3-25 00:00: 00 Yes [facility] gabapentin 600 mg tablet 2-0 3-25 00:00: 00 Yes [facility] gabapentin 600 mg tablet 2022-0 325 00:00: 00 Yes [facility] gabapentin 600 mg tablet 2-0 3-25 00:00: 00 Yes [facility] gabapentin 600 mg tablet 2022-0 3-25 00:00: 00 Yes [facility] gabapentin 600 mg tablet 2-0 325 00:00: 00 Yes [facility] gabapentin 600 mg tablet 2-0 325 00:00: 00 Yes [facility] gabapentin 600 mg tablet 2-0 325 00:00: 00 Yes [facility] gabapentin 600 mg tablet 2022-0 325 00:00: 00 Yes [facility] gabapentin 600 mg tablet 2-0 325 00:00: 00 Yes [facility] gabapentin 600 mg tablet 2-0 325 00:00: 00 Yes [facility] gabapentin 600 mg tablet 2-0 325 00:00: 00 Yes [facility] gabapentin 600 mg tablet 2-0 325 00:00: 00 Yes [facility] gabapentin 600 mg tablet 2-0 3-25 00:00: 00 Yes [facility] gabapentin 600 mg tablet 2-0 325 00:00: 00 Yes [facility] gabapentin 600 mg tablet 2022-0 3-25 00:00: 00 Yes [facility] gabapentin 600 mg tablet 2-0 3-25 00:00: 00 Yes [facility] gabapentin 600 mg tablet 2022-0 3-25 00:00: 00 Yes [facility] gabapentin 600 mg tablet 2022-0 3-25 00:00: 00 Yes [facility] gabapentin 600 mg tablet 2022-0 3-25 00:00: 00 Yes [facility] Ketorolac 15mg Ketorolac 15mg 2022-0 3-17 00:00: 00 No 30mg [facility] Ketorolac 15mg Ketorolac 15mg 2-0 3-17 00:00: 00 No 30mg [facility] Ketorolac 15mg Ketorolac 15mg 2022-0 3-17 00:00: 00 No 30[facility] Ketorolac 15mg Ketorolac 15mg 2-0 3-17 00:00: 00 No 30mg [facility] Ketorolac 15mg Ketorolac 15mg 2-0 3-17 00:00: 00 No 30mg [facility] Ketorolac 15mg Ketorolac 15mg 2-0 3-17 00:00: 00 No 30mg [facility] Ketorolac 15mg Ketorolac 15mg 2-0 3-17 00:00: 00 No 30mg [facility] Ketorolac 15mg Ketorolac 15mg 2-0 3-17 00:00: 00 No 30mg [facility] Ketorolac 15mg Ketorolac 15mg 2-0 3-17 00:00: 00 No 30mg [facility] Ketorolac 15mg Ketorolac 15mg 2-0 3-17 00:00: 00 No 30mg [facility] Ketorolac 15mg Ketorolac 15mg 2-0 3-17 00:00: 00 No 30mg [facility] Ketorolac 15mg Ketorolac 15mg 2022-0 3-17 00:00: 00 No [facility] Ketorolac 15mg Ketorolac 15mg 2022-0 3-17 00:00: 00 No 30mg [facility] Ketorolac 15mg Ketorolac 15mg 2022-0 3-17 00:00: 00 No 30mg [facility] Ketorolac 15mg Ketorolac 15mg 2022-0 3-17 00:00: 00 No 30mg [facility] Ketorolac 15mg Ketorolac 15mg 2022-0 3-17 00:00: 00 No 30mg [facility] Ketorolac 15mg Ketorolac 15mg 2022-0 3-17 00:00: 00 No 30mg [facility] Ketorolac 15mg Ketorolac 15mg 2022-0 3-17 00:00: 00 No 30mg [facility] Ketorolac 15mg Ketorolac 15mg 2022-0 3-17 00:00: 00 No 30mg [facility] Ketorolac 15mg Ketorolac 15mg 2022-0 3-17 00:00: 00 No 30mg [facility] Ketorolac 15mg Ketorolac 15mg 2022-0 3-17 00:00: 00 No 30mg [facility] Ketorolac 15mg Ketorolac 15mg 2022-0 3-17 00:00: 00 No 30mg [facility] Ketorolac 15mg Ketorolac 15mg 2022-0 3-17 00:00: 00 No 30mg [facility] Ketorolac 15mg Ketorolac 15mg 2022-0 3-17 00:00: 00 No 30mg [facility] Ketorolac 15mg Ketorolac 15mg 2022-0 3-17 00:00: 00 No 30mg [facility] Ketorolac 15mg Ketorolac 15mg 2022-0 3-17 00:00: 00 No 30mg [facility] Ketorolac 15mg Ketorolac 15mg 2022-0 3-17 00:00: 00 No 30mg [facility] Ketorolac 15mg Ketorolac 15mg 2022-0 3-17 00:00: 00 No 30mg [facility] Ketorolac 15mg Ketorolac 15mg 2022-0 3-17 00:00: 00 No 30mg [facility] Ketorolac 15mg Ketorolac 15mg 2022-0 3-17 00:00: 00 No 30mg [facility] Ketorolac 15mg Ketorolac 15mg 2-0 3-17 00:00: 00 No 30mg [facility] Ketorolac 15mg Ketorolac 15mg 2-0 3-17 00:00: 00 No 30mg [facility] Ketorolac 15mg Ketorolac 15mg 2-0 3-17 00:00: 00 No 30mg [facility] methocarbam oL 500 mg tablet 2021-0 3-16 00:00: 00 Yes [facility] methocarbam oL 500 mg tablet 2021-0 -16 00:00: 00 Yes [facility] methocarbam oL 500 mg tablet 2021-0 -16 00:00: 00 Yes [facility] methocarbam oL 500 mg tablet 2021-0 -16 00:00: 00 Yes [facility] methocarbam oL 500 mg tablet 2021-0 -16 00:00: 00 Yes [facility] methocarbam oL 500 mg tablet 2021-0 -16 00:00: 00 Yes [facility] methocarbam oL 500 mg tablet 2021-0 -16 00:00: 00 Yes [facility] methocarbam oL 500 mg tablet 2021-0 -16 00:00: 00 Yes [facility] methocarbam oL 500 mg tablet 2021-0 -16 00:00: 00 Yes [facility] methocarbam oL 500 mg tablet 2021-0 -16 00:00: 00 Yes [facility] methocarbam oL 500 mg tablet 2021-0 3-16 00:00: 00 Yes [facility] methocarbam oL 500 mg tablet 2021-0 3-16 00:00: 00 Yes [facility] methocarbam oL 500 mg tablet 2-0 3-16 00:00: 00 Yes [facility] methocarbam oL 500 mg tablet 2-0 3-16 00:00: 00 Yes [facility] methocarbam oL 500 mg tablet 2022-0 3-16 00:00: 00 Yes [facility] methocarbam oL 500 mg tablet 2021-0 16 00:00: 00 Yes [facility] methocarbam oL 500 mg tablet 2021-0 16 00:00: 00 Yes [facility] methocarbam oL 500 mg tablet 2021-0 16 00:00: 00 Yes [facility] methocarbam oL 500 mg tablet 2021-0 16 00:00: 00 Yes [facility] methocarbam oL 500 mg tablet 2021-0 16 00:00: 00 Yes [facility] methocarbam oL 500 mg tablet 0 16 00:00: 00 Yes [facility] methocarbam oL 500 mg tablet 0 16 00:00: 00 Yes [facility] methocarbam oL 500 mg tablet 2021-0 16 00:00: 00 Yes [facility] methocarbam oL 500 mg tablet 0 16 00:00: 00 Yes [facility] methocarbam oL 500 mg tablet 2021-0 16 00:00: 00 Yes [facility] methocarbam oL 500 mg tablet 0 16 00:00: 00 Yes [facility] methocarbam oL 500 mg tablet 0 16 00:00: 00 Yes [facility] valACYclovi r 1 gram tablet 2021-0 01-14 00:00: 00 Yes [facility] valACYclovi r 1 gram tablet 2021-0 01-14 00:00: 00 Yes [facility] valACYclovi r 1 gram tablet 2021-0 01-14 00:00: 00 Yes [facility] valACYclovi r 1 gram tablet 2021-0 01-14 00:00: 00 Yes [facility] valACYclovi r 1 gram tablet 2021-0 01-14 00:00: 00 Yes [facility] valACYclovi r 1 gram tablet 2021-0 01-14 00:00: 00 Yes [facility] valACYclovi r 1 gram tablet 0 01-14 00:00: 00 Yes [facility] valACYclovi r 1 gram tablet 01-14 00:00: 00 Yes [facility] valACYclovi r 1 gram tablet 0 01-14 00:00: 00 Yes [facility] valACYclovi r 1 gram tablet 0 01-14 00:00: 00 Yes [facility] valACYclovi r 1 gram tablet 0 01-14 00:00: 00 Yes [facility] valACYclovi r 1 gram tablet 0 01-14 00:00: 00 Yes [facility] valACYclovi r 1 gram tablet 01-14 00:00: 00 Yes [facility] valACYclovi r 1 gram tablet 01-14 00:00: 00 Yes [facility] valACYclovi r 1 gram tablet 01-14 00:00: 00 12-14 00:00 :00 No [facility] valACYclovi r HCl 1 GM valACYclovi r HCl 1 GM 01-14 00:00: 00 02-28 00:00 :00 No 1{table t} BID valACYclov ir HCl 1 GM valACYclovi r HCl 1 GM valACYclovi r HCl 1 GM 3 00:00: 00 01-24 00:00 :00 No 1{table t} BID valACYclov ir HCl 1 GM valACYclovi r HCl 1 GM valACYclovi r HCl 1 GM 0 3 00:00: 00 01-24 00:00 :00 No 1{table t} BID valACYclov ir HCl 1 GM valACYclovi r HCl 1 GM valACYclovi r HCl 1 GM 0 3 00:00: 00 01-24 00:00 :00 No 1{table t} BID valACYclov ir HCl 1 GM valACYclovi r HCl 1 GM valACYclovi r HCl 1 GM 0 3- 00:00: 00 01-24 00:00 :00 No 1{table t} BID valACYclov ir HCl 1 GM valACYclovi r HCl 1 GM valACYclovi r HCl 1 GM 2021-0 3-09 00:00: 00 - 00:00 :00 No 1{table t} BID valACYclov ir HCl 1 GM Solumedrol 40mg/1ml Solumedrol 40mg/1ml 2-0 3-03 00:00: 00 No 40mg [facility] Solumedrol 40mg/1ml Solumedrol 40mg/1ml 2-0 3-03 00:00: 00 No 40mg [facility] Solumedrol 40mg/1ml Solumedrol 40mg/1ml 2-0 3-03 00:00: 00 No 40mg [facility] Solumedrol 40mg/1ml Solumedrol 40mg/1ml 2-0 3-03 00:00: 00 No 40mg [facility] Solumedrol 40mg/1ml Solumedrol 40mg/1ml 2-0 3-03 00:00: 00 No 40mg [facility] Solumedrol 40mg/1ml Solumedrol 40mg/1ml 2-0 3-03 00:00: 00 No 40mg [facility] Solumedrol 40mg/1ml Solumedrol 40mg/1ml 2-0 3-03 00:00: 00 No 40mg [facility] Solumedrol 40mg/1ml Solumedrol 40mg/1ml 2-0 3-03 00:00: 00 No 40mg [facility] Solumedrol 40mg/1ml Solumedrol 40mg/1ml 2-0 3-03 00:00: 00 No 40mg [facility] Solumedrol 40mg/1ml Solumedrol 40mg/1ml 2-0 3-03 00:00: 00 No 40mg [facility] Solumedrol 40mg/1ml Solumedrol 40mg/1ml 2-0 3-03 00:00: 00 No 40mg [facility] Solumedrol 40mg/1ml Solumedrol 40mg/1ml 2-0 3-03 00:00: 00 No 40mg [facility] Solumedrol 40mg/1ml Solumedrol 40mg/1ml 2-0 3-03 00:00: 00 No 40mg [facility] Solumedrol 40mg/1ml Solumedrol 40mg/1ml 2-0 3-03 00:00: 00 No 40mg [facility] Solumedrol 40mg/1ml Solumedrol 40mg/1ml 2-0 3-03 00:00: 00 No 40mg [facility] Solumedrol 40mg/1ml Solumedrol 40mg/1ml 2-0 3-03 00:00: 00 No 40mg [facility] Solumedrol 40mg/1ml Solumedrol 40mg/1ml 2-0 3-03 00:00: 00 No 40mg [facility] Solumedrol 40mg/1ml Solumedrol 40mg/1ml 2-0 3-03 00:00: 00 No 40mg [facility] Solumedrol 40mg/1ml Solumedrol 40mg/1ml 2-0 3-03 00:00: 00 No 40mg [facility] Solumedrol 40mg/1ml Solumedrol 40mg/1ml 2-0 3-03 00:00: 00 No 40mg [facility] Solumedrol 40mg/1ml Solumedrol 40mg/1ml 2-0 3-03 00:00: 00 No 40mg [facility] Solumedrol 40mg/1ml Solumedrol 40mg/1ml 2-0 3-03 00:00: 00 No 40mg [facility] Solumedrol 40mg/1ml Solumedrol 40mg/1ml 2-0 3-03 00:00: 00 No 40mg [facility] Solumedrol 40mg/1ml Solumedrol 40mg/1ml 2-0 3-03 00:00: 00 No 40mg [facility] Solumedrol 40mg/1ml Solumedrol 40mg/1ml 2-0 3-03 00:00: 00 No 40mg [facility] Solumedrol 40mg/1ml Solumedrol 40mg/1ml 2-0 3-03 00:00: 00 No 40mg [facility] Solumedrol 40mg/1ml Solumedrol 40mg/1ml 2-0 3-03 00:00: 00 No 40mg [facility] Solumedrol 40mg/1ml Solumedrol 40mg/1ml 2-0 3-03 00:00: 00 No 40mg [facility] Solumedrol 40mg/1ml Solumedrol 40mg/1ml 2-0 3-03 00:00: 00 No 40mg [facility] Solumedrol 40mg/1ml Solumedrol 40mg/1ml 2-0 3-03 00:00: 00 No 40mg [facility] Solumedrol 40mg/1ml Solumedrol 40mg/1ml 2-0 3-03 00:00: 00 No 40mg [facility] Solumedrol 40mg/1ml Solumedrol 40mg/1ml 2-0 3-03 00:00: 00 No 40mg [facility] Solumedrol 40mg/1ml Solumedrol 40mg/1ml 2-0 3-03 00:00: 00 No 40mg [facility] Solumedrol 40mg/1ml Solumedrol 40mg/1ml 2-0 3-03 00:00: 00 No 40mg [facility] Solumedrol 40mg/1ml Solumedrol 40mg/1ml 0 3-03 00:00: 00 No 40mg [facility] Solumedrol 40mg/1ml Solumedrol 40mg/1ml 0 3-03 00:00: 00 No 40mg [facility] Solumedrol 40mg/1ml Solumedrol 40mg/1ml 0 3-03 00:00: 00 No 40mg [facility] Solumedrol 40mg/1ml Solumedrol 40mg/1ml 0 3-03 00:00: 00 No 40mg [facility] Toradol (Ketorolac) Toradol (Ketorolac) 0 2-23 00:00: 00 No 60mg [facility] Solumedrol 125mg/2ml Solumedrol 125mg/2ml 0 2-23 00:00: 00 No [facility] Venlafaxine HCl 37.5 MG Venlafaxine HCl 37.5 MG 0 2-23 00:00: 00 No 1{table t_with_ food} QD Venlafaxin e HCl 37.5 MG Toradol (Ketorolac) Toradol (Ketorolac) 0 2-23 00:00: 00 No 60mg [facility] Solumedrol 125mg/2ml Solumedrol 125mg/2ml 0 2-23 00:00: 00 No [facility] Venlafaxine HCl 37.5 MG Venlafaxine HCl 37.5 MG 2021-0 2-23 00:00: 00 No 1{table t_with_ food} QD Venlafaxin e HCl 37.5 MG Toradol (Ketorolac) Toradol (Ketorolac) 0 2-23 00:00: 00 No 60mg [facility] Solumedrol 125mg/2ml Solumedrol 125mg/2ml 2021-0 2-23 00:00: 00 No [facility] Venlafaxine HCl 37.5 MG Venlafaxine HCl 37.5 MG 2021-0 2-23 00:00: 00 No 1{table t_with_ food} QD Venlafaxin e HCl 37.5 MG Toradol (Ketorolac) Toradol (Ketorolac) 2021-0 2- 00:00: 00 No 60mg [facility] Solumedrol 125mg/2ml Solumedrol 125mg/2ml 2021-0 2-23 00:00: 00 No [facility] Venlafaxine HCl 37.5 MG Venlafaxine HCl 37.5 MG 2021-0 2- 00:00: 00 No 1{table t_with_ food} QD Venlafaxin e HCl 37.5 MG Toradol (Ketorolac) Toradol (Ketorolac) 2021-0 2 00:00: 00 No 60mg [facility] Solumedrol 125mg/2ml Solumedrol 125mg/2ml 2021-0 2 00:00: 00 No [facility] Venlafaxine HCl 37.5 MG Venlafaxine HCl 37.5 MG 2021-0 2 00:00: 00 No 1{table t_with_ food} QD Venlafaxin e HCl 37.5 MG Toradol (Ketorolac) Toradol (Ketorolac) 2021-0 2 00:00: 00 No 60mg [facility] Solumedrol 125mg/2ml Solumedrol 125mg/2ml 2021-0 2- 00:00: 00 No [facility] Venlafaxine HCl 37.5 MG Venlafaxine HCl 37.5 MG 2021-0 2- 00:00: 00 No 1{table t_with_ food} QD Venlafaxin e HCl 37.5 MG Toradol (Ketorolac) Toradol (Ketorolac) 2021-0 2- 00:00: 00 No 60mg [facility] Solumedrol 125mg/2ml Solumedrol 125mg/2ml 2021-0 2-23 00:00: 00 No [facility] Venlafaxine HCl 37.5 MG Venlafaxine HCl 37.5 MG 0 12-31 00:00: 00 No 1{table t_with_ food} QD Venlafaxin e HCl 37.5 MG Toradol (Ketorolac) Toradol (Ketorolac) 0 2- 00:00: 00 No 60mg [facility] Solumedrol 125mg/2ml Solumedrol 125mg/2ml 0 12-31 00:00: 00 No [facility] Toradol (Ketorolac) Toradol (Ketorolac) 0 12-31 00:00: 00 No 60mg [facility] Solumedrol 125mg/2ml Solumedrol 125mg/2ml 0 2 00:00: 00 No [facility] Toradol (Ketorolac) Toradol (Ketorolac) 0 12-31 00:00: 00 No 60mg [facility] Solumedrol 125mg/2ml Solumedrol 125mg/2ml 0 12-31 00:00: 00 No [facility] Toradol (Ketorolac) Toradol (Ketorolac) 0 12-31 00:00: 00 No 60mg [facility] Solumedrol 125mg/2ml Solumedrol 125mg/2ml 0 2- 00:00: 00 No [facility] Toradol (Ketorolac) Toradol (Ketorolac) 0 12-31 00:00: 00 No 60mg [facility] Solumedrol 125mg/2ml Solumedrol 125mg/2ml 0 2- 00:00: 00 No [facility] Toradol (Ketorolac) Toradol (Ketorolac) 2021-0 2- 00:00: 00 No 60mg [facility] Solumedrol 125mg/2ml Solumedrol 125mg/2ml 2-0 -23 00:00: 00 No [facility] Toradol (Ketorolac) Toradol (Ketorolac) 0 -23 00:00: 00 No 60mg [facility] Solumedrol 125mg/2ml Solumedrol 125mg/2ml 2021-0 -23 00:00: 00 No [facility] Toradol (Ketorolac) Toradol (Ketorolac) 0 12-31 00:00: 00 No 60mg [facility] Solumedrol 125mg/2ml Solumedrol 125mg/2ml 0 12-31 00:00: 00 No [facility] Toradol (Ketorolac) Toradol (Ketorolac) 0 12-31 00:00: 00 No 60mg [facility] Solumedrol 125mg/2ml Solumedrol 125mg/2ml 0 - 00:00: 00 No [facility] Toradol (Ketorolac) Toradol (Ketorolac) 0 12-31 00:00: 00 No 60mg [facility] Solumedrol 125mg/2ml Solumedrol 125mg/2ml 0 -23 00:00: 00 No [facility] Toradol (Ketorolac) Toradol (Ketorolac) 0 -23 00:00: 00 No 60mg [facility] Solumedrol 125mg/2ml Solumedrol 125mg/2ml 2021-0 -23 00:00: 00 No [facility] Toradol (Ketorolac) Toradol (Ketorolac) 0 2-23 00:00: 00 No 60mg [facility] Solumedrol 125mg/2ml Solumedrol 125mg/2ml 2021-0 2-23 00:00: 00 No [facility] Toradol (Ketorolac) Toradol (Ketorolac) 0 2- 00:00: 00 No 60mg [facility] Solumedrol 125mg/2ml Solumedrol 125mg/2ml 0 2-23 00:00: 00 No [facility] Toradol (Ketorolac) Toradol (Ketorolac) 0 2- 00:00: 00 No 60mg [facility] Solumedrol 125mg/2ml Solumedrol 125mg/2ml 0 2-23 00:00: 00 No [facility] Toradol (Ketorolac) Toradol (Ketorolac) 0 12-31 00:00: 00 No 60mg [facility] Solumedrol 125mg/2ml Solumedrol 125mg/2ml 0 2-23 00:00: 00 No [facility] Toradol (Ketorolac) Toradol (Ketorolac) 0 12-31 00:00: 00 No 60mg [facility] Solumedrol 125mg/2ml Solumedrol 125mg/2ml 0 -23 00:00: 00 No [facility] Toradol (Ketorolac) Toradol (Ketorolac) 0 2- 00:00: 00 No 60mg [facility] Solumedrol 125mg/2ml Solumedrol 125mg/2ml 0 2-23 00:00: 00 No [facility] Toradol (Ketorolac) Toradol (Ketorolac) 2021-0 2-23 00:00: 00 No 60mg [facility] Solumedrol 125mg/2ml Solumedrol 125mg/2ml 0 2-23 00:00: 00 No [facility] Toradol (Ketorolac) Toradol (Ketorolac) 2021-0 2-23 00:00: 00 No 60mg [facility] Solumedrol 125mg/2ml Solumedrol 125mg/2ml 2-0 2-23 00:00: 00 No [facility] Toradol (Ketorolac) Toradol (Ketorolac) 0 2-23 00:00: 00 No 60mg [facility] Solumedrol 125mg/2ml Solumedrol 125mg/2ml 2021-0 2-23 00:00: 00 No [facility] Toradol (Ketorolac) Toradol (Ketorolac) 0 2- 00:00: 00 No 60mg [facility] Solumedrol 125mg/2ml Solumedrol 125mg/2ml 0 2 00:00: 00 No [facility] Toradol (Ketorolac) Toradol (Ketorolac) 2021-0 2- 00:00: 00 No 60mg [facility] Solumedrol 125mg/2ml Solumedrol 125mg/2ml 0 2- 00:00: 00 No [facility] Toradol (Ketorolac) Toradol (Ketorolac) 0 2- 00:00: 00 No 60mg [facility] Toradol (Ketorolac) Toradol (Ketorolac) 2021-0 2-23 00:00: 00 No 60mg [facility] Solumedrol 125mg/2ml Solumedrol 125mg/2ml 2021-0 2-23 00:00: 00 No [facility] Solumedrol 125mg/2ml Solumedrol 125mg/2ml 2021-0 2-23 00:00: 00 No [facility] Toradol (Ketorolac) Toradol (Ketorolac) 0 2-23 00:00: 00 No 60mg [facility] Solumedrol 125mg/2ml Solumedrol 125mg/2ml 2021-0 2-23 00:00: 00 No [facility] venlafaxine 37.5 mg tablet 2021-0 12-31 00:00: 00 Yes [facility] venlafaxine 37.5 mg tablet 2021-0 12-31 00:00: 00 Yes [facility] venlafaxine 37.5 mg tablet 2021-0 12-31 00:00: 00 Yes [facility] venlafaxine 37.5 mg tablet 2-0 12-31 00:00: 00 Yes [facility] venlafaxine 37.5 mg tablet 2021-0 12-31 00:00: 00 Yes [facility] venlafaxine 37.5 mg tablet 2021-0 12-31 00:00: 00 Yes [facility] venlafaxine 37.5 mg tablet 2021-0 12-31 00:00: 00 Yes [facility] venlafaxine 37.5 mg tablet 2021-0 12-31 00:00: 00 Yes [facility] venlafaxine 37.5 mg tablet 2021-0 12-31 00:00: 00 Yes [facility] venlafaxine 37.5 mg tablet 2021-0 12-31 00:00: 00 Yes [facility] venlafaxine 37.5 mg tablet 2021-0 12-31 00:00: 00 Yes [facility] venlafaxine 37.5 mg tablet 2021-0 12-31 00:00: 00 Yes [facility] venlafaxine 37.5 mg tablet 2021-0 12-31 00:00: 00 Yes [facility] venlafaxine 37.5 mg tablet 2021-0 12-31 00:00: 00 Yes [facility] venlafaxine 37.5 mg tablet 2021-0 12-31 00:00: 00 Yes [facility] venlafaxine 37.5 mg tablet 2021-0 12-31 00:00: 00 Yes [facility] venlafaxine 37.5 mg tablet 2-0 12-31 00:00: 00 Yes [facility] venlafaxine 37.5 mg tablet 0 12-31 00:00: 00 Yes [facility] venlafaxine 37.5 mg tablet 0 12-31 00:00: 00 Yes [facility] venlafaxine 37.5 mg tablet 0 12-31 00:00: 00 Yes [facility] venlafaxine 37.5 mg tablet 0 12-31 00:00: 00 Yes [facility] venlafaxine 37.5 mg tablet 0 12-31 00:00: 00 Yes [facility] venlafaxine 37.5 mg tablet 0 12-31 00:00: 00 Yes [facility] venlafaxine 37.5 mg tablet 0 12-31 00:00: 00 Yes [facility] venlafaxine 37.5 mg tablet 0 12-31 00:00: 00 Yes [facility] venlafaxine 37.5 mg tablet 0 12-31 00:00: 00 Yes [facility] venlafaxine 37.5 mg tablet 0 12-31 00:00: 00 Yes [facility] Toradol (Ketorolac) Toradol (Ketorolac) 0 12-31 00:00: 00 No 60mg [facility] Solumedrol 125mg/2ml Solumedrol 125mg/2ml 2021-0 12-31 00:00: 00 No [facility] Toradol (Ketorolac) Toradol (Ketorolac) 0 12-31 00:00: 00 No 60mg [facility] Solumedrol 125mg/2ml Solumedrol 125mg/2ml 2021-0 12-31 00:00: 00 No [facility] Toradol (Ketorolac) Toradol (Ketorolac) 2021-0 12-31 00:00: 00 No 60mg [facility] Solumedrol 125mg/2ml Solumedrol 125mg/2ml 2021-0 12-31 00:00: 00 No [facility] Toradol (Ketorolac) Toradol (Ketorolac) 0 12-31 00:00: 00 No 60mg [facility] Solumedrol 125mg/2ml Solumedrol 125mg/2ml 2021-0 12-31 00:00: 00 No [facility] Toradol (Ketorolac) Toradol (Ketorolac) 0 12-31 00:00: 00 No 60mg [facility] Solumedrol 125mg/2ml Solumedrol 125mg/2ml 2021-0 12-31 00:00: 00 No [facility] Venlafaxine HCl 37.5 MG Venlafaxine HCl 37.5 MG 2021-0 12-31 00:00: 00 No 1{table t_with_ food} QD Venlafaxin e HCl 37.5 MG Gabapentin 600 MG Gabapentin 600 MG 2021-0 12-31 00:00: 00 No 1{table t} QD Gabapentin 600 MG Toradol (Ketorolac) Toradol (Ketorolac) 12-31 00:00: 00 No 60mg [facility] Solumedrol 125mg/2ml Solumedrol 125mg/2ml 0 12-31 00:00: 00 No [facility] Venlafaxine HCl 37.5 MG Venlafaxine HCl 37.5 MG 2021-0 12-31 00:00: 00 No 1{table t_with_ food} QD Venlafaxin e HCl 37.5 MG Toradol (Ketorolac) Toradol (Ketorolac) 2021-0 12-31 00:00: 00 No 60mg [facility] Solumedrol 125mg/2ml Solumedrol 125mg/2ml 2021-0 12-31 00:00: 00 No [facility] Venlafaxine HCl 37.5 MG Venlafaxine HCl 37.5 MG 2021-0 2-23 00:00: 00 No 1{table t_with_ food} QD Venlafaxin e HCl 37.5 MG Toradol (Ketorolac) Toradol (Ketorolac) 2021-0 2-23 00:00: 00 No 60mg [facility] Solumedrol 125mg/2ml Solumedrol 125mg/2ml 2-0 2-23 00:00: 00 No [facility] Venlafaxine HCl 37.5 MG Venlafaxine HCl 37.5 MG 2021-0 2-23 00:00: 00 No 1{table t_with_ food} QD Venlafaxin e HCl 37.5 MG cyclobenzap rine 10 mg tablet 2021-0 2-16 00:00: 00 Yes [facility] cyclobenzap rine 10 mg tablet 2021-0 2-16 00:00: 00 Yes [facility] cyclobenzap rine 10 mg tablet 2021-0 2-16 00:00: 00 Yes [facility] cyclobenzap rine 10 mg tablet 2021-0 2-16 00:00: 00 Yes [facility] cyclobenzap rine 10 mg tablet 2021-0 2-16 00:00: 00 Yes [facility] cyclobenzap rine 10 mg tablet 2021-0 2-16 00:00: 00 Yes [facility] cyclobenzap rine 10 mg tablet 2021-0 2-16 00:00: 00 Yes [facility] cyclobenzap rine 10 mg tablet 2021-0 2-16 00:00: 00 Yes [facility] cyclobenzap rine 10 mg tablet 2021-0 2-16 00:00: 00 Yes [facility] cyclobenzap rine 10 mg tablet 2021-0 2-16 00:00: 00 Yes [facility] cyclobenzap rine 10 mg tablet 2021-0 2-16 00:00: 00 Yes [facility] cyclobenzap rine 10 mg tablet 2021-0 2-16 00:00: 00 Yes [facility] cyclobenzap rine 10 mg tablet 12-24 00:00: 00 Yes [facility] cyclobenzap rine 10 mg tablet 12-24 00:00: 00 Yes [facility] cyclobenzap rine 10 mg tablet 12-24 00:00: 00 12-14 00:00 :00 No [facility] estradioL 0.01 % (0.1 mg/gram) vaginal cream 12-10 00:00: 00 Yes [facility] estradioL 0.01 % (0.1 mg/gram) vaginal cream 12-10 00:00: 00 Yes [facility] estradioL 0.01 % (0.1 mg/gram) vaginal cream 12-10 00:00: 00 Yes [facility] estradioL 0.01 % (0.1 mg/gram) vaginal cream 12-10 00:00: 00 Yes [facility] estradioL 0.01 % (0.1 mg/gram) vaginal cream 12-10 00:00: 00 Yes [facility] estradioL 0.01 % (0.1 mg/gram) vaginal cream 12-10 00:00: 00 Yes [facility] estradioL 0.01 % (0.1 mg/gram) vaginal cream 12-10 00:00: 00 Yes [facility] estradioL 0.01 % (0.1 mg/gram) vaginal cream 12-10 00:00: 00 Yes [facility] estradioL 0.01 % (0.1 mg/gram) vaginal cream 12-10 00:00: 00 Yes [facility] estradioL 0.01 % (0.1 mg/gram) vaginal cream 12-10 00:00: 00 Yes [facility] estradioL 0.01 % (0.1 mg/gram) vaginal cream 12-10 00:00: 00 Yes [facility] estradioL 0.01 % (0.1 mg/gram) vaginal cream 12-10 00:00: 00 Yes [facility] estradioL 0.01 % (0.1 mg/gram) vaginal cream 12-10 00:00: 00 Yes [facility] estradioL 0.01 % (0.1 mg/gram) vaginal cream 12-10 00:00: 00 Yes [facility] estradioL 0.01 % (0.1 mg/gram) vaginal cream 12-10 00:00: 00 Yes [facility] estradioL 0.01 % (0.1 mg/gram) vaginal cream 12-10 00:00: 00 Yes [facility] estradioL 0.01 % (0.1 mg/gram) vaginal cream 12-10 00:00: 00 Yes [facility] estradioL 0.01 % (0.1 mg/gram) vaginal cream 12-10 00:00: 00 Yes [facility] estradioL 0.01 % (0.1 mg/gram) vaginal cream 12-10 00:00: 00 Yes [facility] estradioL 0.01 % (0.1 mg/gram) vaginal cream 12-10 00:00: 00 Yes [facility] estradioL 0.01 % (0.1 mg/gram) vaginal cream 12-10 00:00: 00 Yes [facility] estradioL 0.01 % (0.1 mg/gram) vaginal cream 12-10 00:00: 00 Yes [facility] estradioL 0.01 % (0.1 mg/gram) vaginal cream 12-10 00:00: 00 Yes [facility] estradioL 0.01 % (0.1 mg/gram) vaginal cream 12-10 00:00: 00 Yes [facility] estradioL 0.01 % (0.1 mg/gram) vaginal cream 12-10 00:00: 00 Yes [facility] estradioL 0.01 % (0.1 mg/gram) vaginal cream 12-10 00:00: 00 Yes [facility] estradioL 0.01 % (0.1 mg/gram) vaginal cream 0 2- 00:00: 00 Yes [facility] Gabapentin 100 MG Gabapentin 100 MG 0 2- 00:00: 00 No 1{table t_as_ne eded} BID Gabapentin 100 MG Lidocaine 5 % Lidocaine 5 % 0 2- 00:00: 00 No TID Lidocaine 5 % Levothyroxi ne Sodium 88 MCG Levothyroxi ne Sodium 88 MCG 2021-0 2- 00:00: 00 No QD Levothyrox ine Sodium 88 MCG Estrace 0.1 MG/GM Estrace 0.1 MG/GM 0 2- 00:00: 00 No QD Estrace 0.1 MG/GM Levothyroxi ne Sodium 88 MCG Levothyroxi ne Sodium 88 MCG 2021-0 2- 00:00: 00 No QD Levothyrox ine Sodium 88 MCG Gabapentin 100 MG Gabapentin 100 MG 0 2- 00:00: 00 No 1{table t_as_ne eded} BID Gabapentin 100 MG Lidocaine 5 % Lidocaine 5 % 2- 00:00: 00 No TID Lidocaine 5 % Estrace 0.1 MG/GM Estrace 0.1 MG/GM 2021-0 2- 00:00: 00 No QD Estrace 0.1 MG/GM Levothyroxi ne Sodium 88 MCG Levothyroxi ne Sodium 88 MCG 2021-0 2- 00:00: 00 No QD Levothyrox ine Sodium 88 MCG Lidocaine 5 % Lidocaine 5 % 0 2- 00:00: 00 No TID Lidocaine 5 % Estrace 0.1 MG/GM Estrace 0.1 MG/GM 2021-0 2- 00:00: 00 No QD Estrace 0.1 MG/GM Lidocaine 5 % Lidocaine 5 % 0 2- 00:00: 00 No TID Lidocaine 5 % Levothyroxi ne Sodium 88 MCG Levothyroxi ne Sodium 88 MCG 2021-0 2- 00:00: 00 No QD Levothyrox ine Sodium 88 MCG Estrace 0.1 MG/GM Estrace 0.1 MG/GM 2-0 2- 00:00: 00 No QD Estrace 0.1 MG/GM Levothyroxi ne Sodium 88 MCG Levothyroxi ne Sodium 88 MCG 2022-0 2-01 00:00: 00 No QD Levothyrox ine Sodium 88 MCG Estrace 0.1 MG/GM Estrace 0.1 MG/GM 2-0 2- 00:00: 00 No QD Estrace 0.1 MG/GM Lidocaine 5 % Lidocaine 5 % 2021-0 2- 00:00: 00 No TID Lidocaine 5 % Estrace 0.1 MG/GM Estrace 0.1 MG/GM 2-0 2- 00:00: 00 No QD Estrace 0.1 MG/GM Lidocaine 5 % Lidocaine 5 % 2021-0 2- 00:00: 00 No TID Lidocaine 5 % Levothyroxi ne Sodium 88 MCG Levothyroxi ne Sodium 88 MCG 2-0 2- 00:00: 00 No QD Levothyrox ine Sodium 88 MCG Levothyroxi ne Sodium 88 MCG Levothyroxi ne Sodium 88 MCG 2-0 2- 00:00: 00 No QD Levothyrox ine Sodium 88 MCG Lidocaine 5 % Lidocaine 5 % 0 2- 00:00: 00 No TID Lidocaine 5 % Estrace 0.1 MG/GM Estrace 0.1 MG/GM 2021-0 2- 00:00: 00 No QD Estrace 0.1 MG/GM Levothyroxi ne Sodium 88 MCG Levothyroxi ne Sodium 88 MCG 2-0 2- 00:00: 00 No QD Levothyrox ine Sodium 88 MCG Lidocaine 5 % Lidocaine 5 % 2021-0 2- 00:00: 00 No TID Lidocaine 5 % Estrace 0.1 MG/GM Estrace 0.1 MG/GM 2-0 2- 00:00: 00 No QD Estrace 0.1 MG/GM Levothyroxi ne Sodium 88 MCG Levothyroxi ne Sodium 88 MCG 2-0 2- 00:00: 00 No QD Levothyrox ine Sodium 88 MCG Lidocaine 5 % Lidocaine 5 % 2021-0 2- 00:00: 00 No TID Lidocaine 5 % Estrace 0.1 MG/GM Estrace 0.1 MG/GM 2-0 2- 00:00: 00 No QD Estrace 0.1 MG/GM Estrace 0.1 MG/GM Estrace 0.1 MG/GM 2022-0 2-01 00:00: 00 No QD Estrace 0.1 MG/GM Levothyroxi ne Sodium 88 MCG Levothyroxi ne Sodium 88 MCG 2-0 2-01 00:00: 00 No QD Levothyrox ine Sodium 88 MCG Lidocaine 5 % Lidocaine 5 % 2021-0 2- 00:00: 00 No TID Lidocaine 5 % Levothyroxi ne Sodium 88 MCG Levothyroxi ne Sodium 88 MCG 2-0 2- 00:00: 00 No QD Levothyrox ine Sodium 88 MCG Lidocaine 5 % Lidocaine 5 % 2-0 2- 00:00: 00 No TID Lidocaine 5 % Estrace 0.1 MG/GM Estrace 0.1 MG/GM 2-0 2- 00:00: 00 No QD Estrace 0.1 MG/GM Estrace 0.1 MG/GM Estrace 0.1 MG/GM 2-0 2- 00:00: 00 No QD Estrace 0.1 MG/GM Levothyroxi ne Sodium 88 MCG Levothyroxi ne Sodium 88 MCG 2-0 2- 00:00: 00 No QD Levothyrox ine Sodium 88 MCG Lidocaine 5 % Lidocaine 5 % 0 2- 00:00: 00 No TID Lidocaine 5 % Estrace 0.1 MG/GM Estrace 0.1 MG/GM 2021-0 2- 00:00: 00 No QD Estrace 0.1 MG/GM Levothyroxi ne Sodium 88 MCG Levothyroxi ne Sodium 88 MCG 2-0 2- 00:00: 00 No QD Levothyrox ine Sodium 88 MCG Lidocaine 5 % Lidocaine 5 % 2021-0 2- 00:00: 00 No TID Lidocaine 5 % Lidocaine 5 % Lidocaine 5 % 2021-0 2- 00:00: 00 No TID Lidocaine 5 % Levothyroxi ne Sodium 88 MCG Levothyroxi ne Sodium 88 MCG 2-0 2-01 00:00: 00 No QD Levothyrox ine Sodium 88 MCG Estrace 0.1 MG/GM Estrace 0.1 MG/GM 2-0 2- 00:00: 00 No QD Estrace 0.1 MG/GM Estrace 0.1 MG/GM Estrace 0.1 MG/GM 2022-0 2-01 00:00: 00 No QD Estrace 0.1 MG/GM Lidocaine 5 % Lidocaine 5 % 2022-0 2-01 00:00: 00 No TID Lidocaine 5 % Levothyroxi ne Sodium 88 MCG Levothyroxi ne Sodium 88 MCG 2-0 2- 00:00: 00 No QD Levothyrox ine Sodium 88 MCG Estrace 0.1 MG/GM Estrace 0.1 MG/GM 2022-0 2- 00:00: 00 No QD Estrace 0.1 MG/GM Lidocaine 5 % Lidocaine 5 % 2021-0 2- 00:00: 00 No TID Lidocaine 5 % Levothyroxi ne Sodium 88 MCG Levothyroxi ne Sodium 88 MCG 2022-0 2- 00:00: 00 No QD Levothyrox ine Sodium 88 MCG Estrace 0.1 MG/GM Estrace 0.1 MG/GM 2-0 2- 00:00: 00 No QD Estrace 0.1 MG/GM Lidocaine 5 % Lidocaine 5 % 2021-0 2- 00:00: 00 No TID Lidocaine 5 % Levothyroxi ne Sodium 88 MCG Levothyroxi ne Sodium 88 MCG 2-0 2- 00:00: 00 No QD Levothyrox ine Sodium 88 MCG Lidocaine 5 % Lidocaine 5 % 2021-0 2- 00:00: 00 No TID Lidocaine 5 % Estrace 0.1 MG/GM Estrace 0.1 MG/GM 2-0 2- 00:00: 00 No QD Estrace 0.1 MG/GM Lidocaine 5 % Lidocaine 5 % 2021-0 2- 00:00: 00 No TID Lidocaine 5 % Estrace 0.1 MG/GM Estrace 0.1 MG/GM 2-0 2- 00:00: 00 No QD Estrace 0.1 MG/GM Lidocaine 5 % Lidocaine 5 % 2-0 2- 00:00: 00 No TID Lidocaine 5 % Estrace 0.1 MG/GM Estrace 0.1 MG/GM 2-0 2- 00:00: 00 No QD Estrace 0.1 MG/GM Lidocaine 5 % Lidocaine 5 % 2022-0 2- 00:00: 00 No TID Lidocaine 5 % Estrace 0.1 MG/GM Estrace 0.1 MG/GM 2022-0 2- 00:00: 00 No QD Estrace 0.1 MG/GM Lidocaine 5 % Lidocaine 5 % 2021-0 2- 00:00: 00 No TID Lidocaine 5 % Estrace 0.1 MG/GM Estrace 0.1 MG/GM 2022-0 2- 00:00: 00 No QD Estrace 0.1 MG/GM Lidocaine 5 % Lidocaine 5 % 2021-0 2- 00:00: 00 No TID Lidocaine 5 % Estrace 0.1 MG/GM Estrace 0.1 MG/GM 2022-0 2- 00:00: 00 No QD Estrace 0.1 MG/GM Estrace 0.1 MG/GM Estrace 0.1 MG/GM 2022-0 2- 00:00: 00 No QD Estrace 0.1 MG/GM Lidocaine 5 % Lidocaine 5 % 2021-0 2- 00:00: 00 No TID Lidocaine 5 % Estrace 0.1 MG/GM Estrace 0.1 MG/GM 2-0 2- 00:00: 00 No QD Estrace 0.1 MG/GM Lidocaine 5 % Lidocaine 5 % 0 2- 00:00: 00 No TID Lidocaine 5 % Estrace 0.1 MG/GM Estrace 0.1 MG/GM 2-0 2- 00:00: 00 No QD Estrace 0.1 MG/GM Lidocaine 5 % Lidocaine 5 % 0 2- 00:00: 00 No TID Lidocaine 5 % Levothyroxi ne Sodium 88 MCG Levothyroxi ne Sodium 88 MCG 2-0 2- 00:00: 00 No QD Levothyrox ine Sodium 88 MCG Estrace 0.1 MG/GM Estrace 0.1 MG/GM 2-0 2- 00:00: 00 No QD Estrace 0.1 MG/GM Lidocaine 5 % Lidocaine 5 % 0 2- 00:00: 00 No TID Lidocaine 5 % Estrace 0.1 MG/GM Estrace 0.1 MG/GM 2-0 2- 00:00: 00 No QD Estrace 0.1 MG/GM Lidocaine 5 % Lidocaine 5 % 2021-0 2- 00:00: 00 No TID Lidocaine 5 % Levothyroxi ne Sodium 88 MCG Levothyroxi ne Sodium 88 MCG 2-0 2- 00:00: 00 No QD Levothyrox ine Sodium 88 MCG levothyroxi ne 88 mcg tablet 2021-0 2- 00:00: 00 Yes [facility] levothyroxi ne 88 mcg tablet 2021-0 2- 00:00: 00 Yes [facility] levothyroxi ne 88 mcg tablet 2021-0 2- 00:00: 00 Yes [facility] levothyroxi ne 88 mcg tablet 2021-0 2- 00:00: 00 Yes [facility] levothyroxi ne 88 mcg tablet 2021-0 2- 00:00: 00 Yes [facility] levothyroxi ne 88 mcg tablet 0 2- 00:00: 00 Yes [facility] levothyroxi ne 88 mcg tablet 2021-0 2- 00:00: 00 Yes [facility] levothyroxi ne 88 mcg tablet 0 2- 00:00: 00 Yes [facility] levothyroxi ne 88 mcg tablet 2021-0 2- 00:00: 00 Yes [facility] levothyroxi ne 88 mcg tablet 0 2- 00:00: 00 Yes [facility] levothyroxi ne 88 mcg tablet 0 2- 00:00: 00 Yes [facility] levothyroxi ne 88 mcg tablet 2021-0 2- 00:00: 00 Yes [facility] levothyroxi ne 88 mcg tablet 2021-0 2- 00:00: 00 Yes [facility] levothyroxi ne 88 mcg tablet 2021-0 2- 00:00: 00 Yes [facility] levothyroxi ne 88 mcg tablet 0 2- 00:00: 00 Yes [facility] levothyroxi ne 88 mcg tablet 2021-0 2- 00:00: 00 Yes [facility] levothyroxi ne 88 mcg tablet 2021-0 2- 00:00: 00 Yes [facility] levothyroxi ne 88 mcg tablet 2021-0 2- 00:00: 00 Yes [facility] levothyroxi ne 88 mcg tablet 2021-0 2- 00:00: 00 Yes [facility] levothyroxi ne 88 mcg tablet 2021-0 2- 00:00: 00 Yes [facility] levothyroxi ne 88 mcg tablet 2021-0 2- 00:00: 00 Yes [facility] levothyroxi ne 88 mcg tablet 2021-0 2- 00:00: 00 Yes [facility] levothyroxi ne 88 mcg tablet 2021-0 2- 00:00: 00 Yes [facility] levothyroxi ne 88 mcg tablet 2021-0 2- 00:00: 00 Yes [facility] levothyroxi ne 88 mcg tablet 2021-0 2- 00:00: 00 Yes [facility] levothyroxi ne 88 mcg tablet 2021-0 2- 00:00: 00 Yes [facility] levothyroxi ne 88 mcg tablet 2021-0 2 00:00: 00 Yes [facility] NIFEdipine ER 30 MG NIFEdipine ER 30 MG 2021-0 - 00:00: 00 No 1{table t_on_an _empty_ stomach } QD NIFEdipine ER 30 MG NIFEdipine ER 30 MG NIFEdipine ER 30 MG 2021-0 - 00:00: 00 No 1{table t_on_an _empty_ stomach } QD NIFEdipine ER 30 MG NIFEdipine ER 30 MG NIFEdipine ER 30 MG 2021-0 - 00:00: 00 No 1{table t_on_an _empty_ stomach } QD NIFEdipine ER 30 MG NIFEdipine ER 30 MG NIFEdipine ER 30 MG 2021-0 - 00:00: 00 No 1{table t_on_an _empty_ stomach } QD NIFEdipine ER 30 MG NIFEdipine ER 30 MG NIFEdipine ER 30 MG 2021-0 - 00:00: 00 No 1{table t_on_an _empty_ stomach } QD NIFEdipine ER 30 MG NIFEdipine ER 30 MG NIFEdipine ER 30 MG 2021-0 - 00:00: 00 No 1{table t_on_an _empty_ stomach } QD NIFEdipine ER 30 MG NIFEdipine ER 30 MG NIFEdipine ER 30 MG 2021-0 12-03 00:00: 00 No 1{table t_on_an _empty_ stomach } QD NIFEdipine ER 30 MG NIFEdipine ER 30 MG NIFEdipine ER 30 MG 2021-0 12-03 00:00: 00 No 1{table t_on_an _empty_ stomach } QD NIFEdipine ER 30 MG NIFEdipine ER 30 MG NIFEdipine ER 30 MG 2021-0 12-03 00:00: 00 No 1{table t_on_an _empty_ stomach } QD NIFEdipine ER 30 MG NIFEdipine ER 30 MG NIFEdipine ER 30 MG 2021-0 12-03 00:00: 00 No 1{table t_on_an _empty_ stomach } QD NIFEdipine ER 30 MG NIFEdipine ER 30 MG NIFEdipine ER 30 MG 2021-0 12-03 00:00: 00 No 1{table t_on_an _empty_ stomach } QD NIFEdipine ER 30 MG NIFEdipine ER 30 MG NIFEdipine ER 30 MG 2021-0 12-03 00:00: 00 No 1{table t_on_an _empty_ stomach } QD NIFEdipine ER 30 MG NIFEdipine ER 30 MG NIFEdipine ER 30 MG 2021-0 12-03 00:00: 00 No 1{table t_on_an _empty_ stomach } QD NIFEdipine ER 30 MG NIFEdipine ER 30 MG NIFEdipine ER 30 MG 0 12-03 00:00: 00 No 1{table t_on_an _empty_ stomach } QD NIFEdipine ER 30 MG NIFEdipine ER 30 MG NIFEdipine ER 30 MG 2021-0 12-03 00:00: 00 No 1{table t_on_an _empty_ stomach } QD NIFEdipine ER 30 MG NIFEdipine ER 30 MG NIFEdipine ER 30 MG 2021-0 12-03 00:00: 00 No 1{table t_on_an _empty_ stomach } QD NIFEdipine ER 30 MG NIFEdipine ER 30 MG NIFEdipine ER 30 MG 2021-0 12-03 00:00: 00 No 1{table t_on_an _empty_ stomach } QD NIFEdipine ER 30 MG NIFEdipine ER 30 MG NIFEdipine ER 30 MG 2021-0 12-03 00:00: 00 No 1{table t_on_an _empty_ stomach } QD NIFEdipine ER 30 MG NIFEdipine ER 30 MG NIFEdipine ER 30 MG 2021-0 - 00:00: 00 No 1{table t_on_an _empty_ stomach } QD NIFEdipine ER 30 MG NIFEdipine ER 30 MG NIFEdipine ER 30 MG 2021-0 - 00:00: 00 No 1{table t_on_an _empty_ stomach } QD NIFEdipine ER 30 MG NIFEdipine ER 30 MG NIFEdipine ER 30 MG 2021-0 12-03 00:00: 00 No 1{table t_on_an _empty_ stomach } QD NIFEdipine ER 30 MG NIFEdipine ER 30 MG NIFEdipine ER 30 MG 2021-0 12-03 00:00: 00 No 1{table t_on_an _empty_ stomach } QD NIFEdipine ER 30 MG NIFEdipine ER 30 MG NIFEdipine ER 30 MG 2021-0 12-03 00:00: 00 No 1{table t_on_an _empty_ stomach } QD NIFEdipine ER 30 MG NIFEdipine ER 30 MG NIFEdipine ER 30 MG 2021-0 12-03 00:00: 00 No 1{table t_on_an _empty_ stomach } QD NIFEdipine ER 30 MG NIFEdipine ER 30 MG NIFEdipine ER 30 MG 2021-0 12-03 00:00: 00 No 1{table t_on_an _empty_ stomach } QD NIFEdipine ER 30 MG NIFEdipine ER 30 MG NIFEdipine ER 30 MG 2021-0 12-03 00:00: 00 No 1{table t_on_an _empty_ stomach } QD NIFEdipine ER 30 MG NIFEdipine ER 30 MG NIFEdipine ER 30 MG 2021-0 12-03 00:00: 00 No 1{table t_on_an _empty_ stomach } QD NIFEdipine ER 30 MG NIFEdipine ER 30 MG NIFEdipine ER 30 MG 2021-0 12-03 00:00: 00 No 1{table t_on_an _empty_ stomach } QD NIFEdipine ER 30 MG NIFEdipine ER 30 MG NIFEdipine ER 30 MG 2021-0 12-03 00:00: 00 No 1{table t_on_an _empty_ stomach } QD NIFEdipine ER 30 MG NIFEdipine ER 30 MG NIFEdipine ER 30 MG 2021-0 12-03 00:00: 00 No 1{table t_on_an _empty_ stomach } QD NIFEdipine ER 30 MG NIFEdipine ER 30 MG NIFEdipine ER 30 MG 2021-0 12-03 00:00: 00 No 1{table t_on_an _empty_ stomach } QD NIFEdipine ER 30 MG tiZANidine HCl 2 MG tiZANidine HCl 2 MG 0 1-11 00:00: 00 12-17 00:00 :00 No 1{table t_as_ne eded} BID tiZANidine HCl 2 MG tiZANidine HCl 2 MG tiZANidine HCl 2 MG 0 1-11 00:00: 00 12-17 00:00 :00 No 1{table t_as_ne eded} BID tiZANidine HCl 2 MG tiZANidine HCl 2 MG tiZANidine HCl 2 MG 2021-0 -11 00:00: 00 12-17 00:00 :00 No 1{table t_as_ne eded} BID tiZANidine HCl 2 MG tiZANidine HCl 2 MG tiZANidine HCl 2 MG 0 11-18 00:00: 00 12-17 00:00 :00 No 1{table t_as_ne eded} BID tiZANidine HCl 2 MG Naproxen 500 MG Naproxen 500 MG 0 -11 00:00: 00 12-13 00:00 :00 No BID Naproxen 500 MG Naproxen 500 MG Naproxen 500 MG 0 -11 00:00: 00 12-13 00:00 :00 No BID Naproxen 500 MG Naproxen 500 MG Naproxen 500 MG 0 - 00:00: 00 12-13 00:00 :00 No BID Naproxen 500 MG Naproxen 500 MG Naproxen 500 MG 0 -11 00:00: 00 12-13 00:00 :00 No BID Naproxen 500 MG Naproxen 500 MG Naproxen 500 MG 0 -11 00:00: 00 11-28 00:00 :00 No BID Naproxen 500 MG tiZANidine HCl 2 MG tiZANidine HCl 2 MG 0 -11 00:00: 00 11-28 00:00 :00 No 1{table t_as_ne eded} BID tiZANidine HCl 2 MG Naproxen 500 MG Naproxen 500 MG 11-18 00:00: 00 11-28 00:00 :00 No BID Naproxen 500 MG tiZANidine HCl 2 MG tiZANidine HCl 2 MG 11-18 00:00: 00 11-28 00:00 :00 No 1{table t_as_ne eded} BID tiZANidine HCl 2 MG methylPREDN ISolone (MEDROL, DUSTY,) 4 mg tablets 11-09 00:00: 00 Yes [id number] Take by mouth SEE-INSTRU CTIONS. follow package directions [facility] albuterol 90 mcg/actuati on inhaler 11-09 00:00: 00 Yes [id number] 2{puff} Inhale 2 Puffs every 6 (six) hours as needed for Wheezing or Shortness of Breath. [facility] methylPREDN ISolone (MEDROL, DUSTY,) 4 mg tablets 11-09 00:00: 00 Yes [id number] Take by mouth SEE-INSTRU CTIONS. follow package directions [facility] albuterol 90 mcg/actuati on inhaler 11-09 00:00: 00 Yes [id number] 2{puff} Inhale 2 Puffs every 6 (six) hours as needed for Wheezing or Shortness of Breath. [facility] methylPREDN ISolone (MEDROL, DUSTY,) 4 mg tablets 11-09 00:00: 00 Yes [id number] Take by mouth SEE-INSTRU CTIONS. follow package directions [facility] albuterol 90 mcg/actuati on inhaler 11-09 00:00: 00 Yes [id number] 2{puff} Inhale 2 Puffs every 6 (six) hours as needed for Wheezing or Shortness of Breath. [facility] albuterol 90 mcg/actuati on inhaler 11-09 00:00: 00 Yes [id number] 2{puff} Inhale 2 Puffs every 6 (six) hours as needed for Wheezing or Shortness of Breath. [facility] albuterol 90 mcg/actuati on inhaler 11-09 00:00: 00 Yes [id number] 2{puff} Inhale 2 Puffs every 6 (six) hours as needed for Wheezing or Shortness of Breath. [facility] albuterol 90 mcg/actuati on inhaler 11-09 00:00: 00 Yes [id number] 2{puff} Inhale 2 Puffs every 6 (six) hours as needed for Wheezing or Shortness of Breath. [facility] albuterol 90 mcg/actuati on inhaler 11-09 00:00: 00 Yes [id number] 2{puff} Inhale 2 Puffs every 6 (six) hours as needed for Wheezing or Shortness of Breath. [facility] albuterol 90 mcg/actuati on inhaler 11-09 00:00: 00 Yes [id number] 2{puff} Inhale 2 Puffs every 6 (six) hours as needed for Wheezing or Shortness of Breath. [facility] albuterol 90 mcg/actuati on inhaler 11-09 00:00: 00 Yes [id number] 2{puff} Inhale 2 Puffs every 6 (six) hours as needed for Wheezing or Shortness of Breath. [facility] albuterol 90 mcg/actuati on inhaler 11-09 00:00: 00 Yes [id number] 2{puff} Inhale 2 Puffs every 6 (six) hours as needed for Wheezing or Shortness of Breath. [facility] albuterol 90 mcg/actuati on inhaler 11-09 00:00: 00 Yes [id number] 2{puff} Inhale 2 Puffs every 6 (six) hours as needed for Wheezing or Shortness of Breath. [facility] albuterol 90 mcg/actuati on inhaler 11-09 00:00: 00 Yes [id number] 2{puff} Inhale 2 Puffs every 6 (six) hours as needed for Wheezing or Shortness of Breath. [facility] albuterol 90 mcg/actuati on inhaler 11-09 00:00: 00 Yes [id number] 2{puff} Inhale 2 Puffs every 6 (six) hours as needed for Wheezing or Shortness of Breath. [facility] albuterol 90 mcg/actuati on inhaler 11-09 00:00: 00 Yes [id number] 2{puff} Inhale 2 Puffs every 6 (six) hours as needed for Wheezing or Shortness of Breath. [facility] albuterol 90 mcg/actuati on inhaler 11-09 00:00: 00 Yes [id number] 2{puff} Inhale 2 Puffs every 6 (six) hours as needed for Wheezing or Shortness of Breath. [facility] albuterol 90 mcg/actuati on inhaler 11-09 00:00: 00 Yes [id number] 2{puff} Inhale 2 Puffs every 6 (six) hours as needed for Wheezing or Shortness of Breath. [facility] albuterol 90 mcg/actuati on inhaler 11-09 00:00: 00 Yes [id number] 2{puff} Inhale 2 Puffs every 6 (six) hours as needed for Wheezing or Shortness of Breath. [facility] methylPREDN ISolone (MEDROL, DUSTY,) 4 mg tablets 11-09 00:00: 00 Yes [id number] Take by mouth SEE-INSTRU CTIONS. follow package directions [facility] albuterol 90 mcg/actuati on inhaler 11-09 00:00: 00 Yes [id number] 2{puff} Inhale 2 Puffs every 6 (six) hours as needed for Wheezing or Shortness of Breath. [facility] albuterol 90 mcg/actuati on inhaler 11-09 00:00: 00 Yes [id number] 2{puff} Inhale 2 Puffs every 6 (six) hours as needed for Wheezing or Shortness of Breath. [facility] albuterol 90 mcg/actuati on inhaler 11-09 00:00: 00 Yes [id number] 2{puff} Inhale 2 Puffs every 6 (six) hours as needed for Wheezing or Shortness of Breath. [facility] albuterol 90 mcg/actuati on inhaler 11-09 00:00: 00 Yes [id number] 2{puff} Inhale 2 Puffs every 6 (six) hours as needed for Wheezing or Shortness of Breath. [facility] albuterol 90 mcg/actuati on inhaler 11-09 00:00: 00 Yes [id number] 2{puff} Inhale 2 Puffs every 6 (six) hours as needed for Wheezing or Shortness of Breath. [facility] albuterol 90 mcg/actuati on inhaler 11-09 00:00: 00 Yes [id number] 2{puff} Inhale 2 Puffs every 6 (six) hours as needed for Wheezing or Shortness of Breath. [facility] albuterol 90 mcg/actuati on inhaler 11-09 00:00: 00 Yes [id number] 2{puff} Inhale 2 Puffs every 6 (six) hours as needed for Wheezing or Shortness of Breath. [facility] methylPREDN ISolone (MEDROL, DUSTY,) 4 mg tablets 11-09 00:00: 00 Yes [id number] Take by mouth SEE-INSTRU CTIONS. follow package directions [facility] albuterol 90 mcg/actuati on inhaler 11-09 00:00: 00 Yes [id number] 2{puff} Inhale 2 Puffs every 6 (six) hours as needed for Wheezing or Shortness of Breath. [facility] albuterol 90 mcg/actuati on inhaler 11-09 00:00: 00 Yes [id number] 2{puff} Inhale 2 Puffs every 6 (six) hours as needed for Wheezing or Shortness of Breath. [facility] methylPREDN ISolone (MEDROL, DUSTY,) 4 mg tablets 11-09 00:00: 00 Yes [id number] Take by mouth SEE-INSTRU CTIONS. follow package directions [facility] albuterol 90 mcg/actuati on inhaler 11-09 00:00: 00 Yes [id number] 2{puff} Inhale 2 Puffs every 6 (six) hours as needed for Wheezing or Shortness of Breath. [facility] methylPREDN ISolone (MEDROL, DUSTY,) 4 mg tablets 11-09 00:00: 00 Yes [id number] Take by mouth SEE-INSTRU CTIONS. follow package directions [facility] albuterol 90 mcg/actuati on inhaler 11-09 00:00: 00 Yes [id number] 2{puff} Inhale 2 Puffs every 6 (six) hours as needed for Wheezing or Shortness of Breath. [facility] methylPREDN ISolone (MEDROL, DUSTY,) 4 mg tablets 11-09 00:00: 00 05-20 00:00 :00 No [id number] Take by mouth SEE-INSTRU CTIONS. follow package directions [facility] Gabapentin 600 MG Gabapentin 600 MG No 1{table t} QD Gabapentin 600 MG valACYclovi r HCl 1 GM valACYclovi r HCl 1 GM No 1{table t} QD valACYclov ir HCl 1 GM Aspirin 81 MG Aspirin 81 MG No 1{table t} QD Aspirin 81 MG Folic Acid 1 MG Folic Acid 1 MG No 1{table t} QD Folic Acid 1 MG Claritin 10 MG Claritin 10 MG No 1{table t} QD Claritin 10 MG Diclofenac Sodium 75 MG Diclofenac Sodium 75 MG No 1{table t_as_ne eded} BID Diclofenac Sodium 75 MG Probiotic - Probiotic - No Pr obiotic - Omeprazole 40 MG Omeprazole 40 MG No BID Omeprazole 40 MG Methotrexat e Sodium 2.5 MG Methotrexat e Sodium 2.5 MG No Methotrexa te Sodium 2.5 MG Famotidine 20 MG Famotidine 20 MG No 1{table t_at_be dtime_a s_neede d} QD Famotidine 20 MG Levothyroxi ne Sodium 100 MCG Levothyroxi ne Sodium 100 MCG No QD Levothyrox ine Sodium 100 MCG valACYclovi r HCl 500 MG valACYclovi r HCl 500 MG No 1{table t} QD valACYclov ir HCl 500 MG Iron 325 (65 Fe) MG Iron 325 (65 Fe) MG No 1{table t} QD Iron 325 (65 Fe) MG Hydroxychlo roquine Sulfate 200 MG Hydroxychlo roquine Sulfate 200 MG No BID Hydroxychl oroquine Sulfate 200 MG Celecoxib 200 MG Celecoxib 200 MG No 1{capsu le_with _food} QD Celecoxib 200 MG Vitamin C 500 MG Vitamin C 500 MG No Vitamin C 500 MG Gabapentin 600 MG Gabapentin 600 MG No 1{table t} QD Gabapentin 600 MG valACYclovi r HCl 1 GM valACYclovi r HCl 1 GM No 1{table t} QD valACYclov ir HCl 1 GM Aspirin 81 MG Aspirin 81 MG No 1{table t} QD Aspirin 81 MG Folic Acid 1 MG Folic Acid 1 MG No 1{table t} QD Folic Acid 1 MG Claritin 10 MG Claritin 10 MG No 1{table t} QD Claritin 10 MG Diclofenac Sodium 75 MG Diclofenac Sodium 75 MG No 1{table t_as_ne eded} BID Diclofenac Sodium 75 MG Probiotic - Probiotic - No Pr obiotic - Vitamin C 500 MG Vitamin C 500 MG No Vitamin C 500 MG Omeprazole 40 MG Omeprazole 40 MG No BID Omeprazole 40 MG Methotrexat e Sodium 2.5 MG Methotrexat e Sodium 2.5 MG No Methotrexa te Sodium 2.5 MG Famotidine 20 MG Famotidine 20 MG No 1{table t_at_be dtime_a s_neede d} QD Famotidine 20 MG Levothyroxi ne Sodium 100 MCG Levothyroxi ne Sodium 100 MCG No QD Levothyrox ine Sodium 100 MCG valACYclovi r HCl 500 MG valACYclovi r HCl 500 MG No 1{table t} QD valACYclov ir HCl 500 MG Iron 325 (65 Fe) MG Iron 325 (65 Fe) MG No 1{table t} QD Iron 325 (65 Fe) MG Hydroxychlo roquine Sulfate 200 MG Hydroxychlo roquine Sulfate 200 MG No BID Hydroxychl oroquine Sulfate 200 MG Celecoxib 200 MG Celecoxib 200 MG No 1{capsu le_with _food} QD Celecoxib 200 MG Iron 28 MG Iron 28 MG No 1{ table t} QD Iron 28 MG Vitamin C 500 MG Vitamin C 500 MG No Vitamin C 500 MG Gabapentin 600 MG Gabapentin 600 MG No 1{table t} QD Gabapentin 600 MG valACYclovi r HCl 1 GM valACYclovi r HCl 1 GM No 1{table t} QD valACYclov ir HCl 1 GM Omeprazole 40 MG Omeprazole 40 MG No QD Omeprazole 40 MG Aspirin 81 MG Aspirin 81 MG No 1{table t} QD Aspirin 81 MG Folic Acid 1 MG Folic Acid 1 MG No 1{table t} QD Folic Acid 1 MG Claritin 10 MG Claritin 10 MG No 1{table t} QD Claritin 10 MG Diclofenac Sodium 75 MG Diclofenac Sodium 75 MG No 1{table t_as_ne eded} BID Diclofenac Sodium 75 MG Probiotic - Probiotic - No Pr obiotic - Omeprazole 40 MG Omeprazole 40 MG No BID Omeprazole 40 MG Methotrexat e Sodium 2.5 MG Methotrexat e Sodium 2.5 MG No Methotrexa te Sodium 2.5 MG Famotidine 20 MG Famotidine 20 MG No 1{table t_at_be dtime_a s_neede d} QD Famotidine 20 MG Levothyroxi ne Sodium 100 MCG Levothyroxi ne Sodium 100 MCG No QD Levothyrox ine Sodium 100 MCG valACYclovi r HCl 500 MG valACYclovi r HCl 500 MG No 1{table t} QD valACYclov ir HCl 500 MG Iron 325 (65 Fe) MG Iron 325 (65 Fe) MG No 1{table t} QD Iron 325 (65 Fe) MG Hydroxychlo roquine Sulfate 200 MG Hydroxychlo roquine Sulfate 200 MG No BID Hydroxychl oroquine Sulfate 200 MG Celecoxib 200 MG Celecoxib 200 MG No 1{capsu le_with _food} QD Celecoxib 200 MG Vitamin C 500 MG Vitamin C 500 MG No Vitamin C 500 MG Levothyroxi ne Sodium 75 MCG Levothyroxi ne Sodium 75 MCG No QD Levothyrox ine Sodium 75 MCG Gabapentin 600 MG Gabapentin 600 MG No 1{table t} QD Gabapentin 600 MG valACYclovi r HCl 1 GM valACYclovi r HCl 1 GM No 1{table t} QD valACYclov ir HCl 1 GM Aspirin 81 MG Aspirin 81 MG No 1{table t} QD Aspirin 81 MG Folic Acid 1 MG Folic Acid 1 MG No 1{table t} QD Folic Acid 1 MG Claritin 10 MG Claritin 10 MG No 1{table t} QD Claritin 10 MG Diclofenac Sodium 75 MG Diclofenac Sodium 75 MG No 1{table t_as_ne eded} BID Diclofenac Sodium 75 MG Probiotic - Probiotic - No Pr obiotic - Omeprazole 40 MG Omeprazole 40 MG No BID Omeprazole 40 MG Methotrexat e Sodium 2.5 MG Methotrexat e Sodium 2.5 MG No Methotrexa te Sodium 2.5 MG Famotidine 20 MG Famotidine 20 MG No 1{table t_at_be dtime_a s_neede d} QD Famotidine 20 MG Levothyroxi ne Sodium 100 MCG Levothyroxi ne Sodium 100 MCG No QD Levothyrox ine Sodium 100 MCG valACYclovi r HCl 500 MG valACYclovi r HCl 500 MG No 1{table t} QD valACYclov ir HCl 500 MG Iron 325 (65 Fe) MG Iron 325 (65 Fe) MG No 1{table t} QD Iron 325 (65 Fe) MG Hydroxychlo roquine Sulfate 200 MG Hydroxychlo roquine Sulfate 200 MG No BID Hydroxychl oroquine Sulfate 200 MG Celecoxib 200 MG Celecoxib 200 MG No 1{capsu le_with _food} QD Celecoxib 200 MG Vitamin C 500 MG Vitamin C 500 MG No Vitamin C 500 MG Gabapentin 600 MG Gabapentin 600 MG No 1{table t} QD Gabapentin 600 MG valACYclovi r HCl 1 GM valACYclovi r HCl 1 GM No 1{table t} QD valACYclov ir HCl 1 GM Aspirin 81 MG Aspirin 81 MG No 1{table t} QD Aspirin 81 MG Folic Acid 1 MG Folic Acid 1 MG No 1{table t} QD Folic Acid 1 MG Claritin 10 MG Claritin 10 MG No 1{table t} QD Claritin 10 MG Diclofenac Sodium 75 MG Diclofenac Sodium 75 MG No 1{table t_as_ne eded} BID Diclofenac Sodium 75 MG Probiotic - Probiotic - No Pr obiotic - Omeprazole 40 MG Omeprazole 40 MG No BID Omeprazole 40 MG Methotrexat e Sodium 2.5 MG Methotrexat e Sodium 2.5 MG No Methotrexa te Sodium 2.5 MG Famotidine 20 MG Famotidine 20 MG No 1{table t_at_be dtime_a s_neede d} QD Famotidine 20 MG Levothyroxi ne Sodium 100 MCG Levothyroxi ne Sodium 100 MCG No QD Levothyrox ine Sodium 100 MCG valACYclovi r HCl 500 MG valACYclovi r HCl 500 MG No 1{table t} QD valACYclov ir HCl 500 MG Iron 325 (65 Fe) MG Iron 325 (65 Fe) MG No 1{table t} QD Iron 325 (65 Fe) MG Hydroxychlo roquine Sulfate 200 MG Hydroxychlo roquine Sulfate 200 MG No BID Hydroxychl oroquine Sulfate 200 MG Celecoxib 200 MG Celecoxib 200 MG No 1{capsu le_with _food} QD Celecoxib 200 MG Vitamin C 500 MG Vitamin C 500 MG No Vitamin C 500 MG Vitamin C 500 MG Vitamin C 500 MG No Vitamin C 500 MG Iron 28 MG Iron 28 MG No 1{ table t} QD Iron 28 MG Omeprazole 40 MG Omeprazole 40 MG No QD Omeprazole 40 MG Levothyroxi ne Sodium 75 MCG Levothyroxi ne Sodium 75 MCG No QD Levothyrox ine Sodium 75 MCG Vitamin C 500 MG Vitamin C 500 MG No Vitamin C 500 MG Omeprazole 40 MG Omeprazole 40 MG No QD Omeprazole 40 MG Iron 28 MG Iron 28 MG No 1{ table t} QD Iron 28 MG Levothyroxi ne Sodium 75 MCG Levothyroxi ne Sodium 75 MCG No QD Levothyrox ine Sodium 75 MCG Vitamin C 500 MG Vitamin C 500 MG No Vitamin C 500 MG Omeprazole 40 MG Omeprazole 40 MG No QD Omeprazole 40 MG Iron 28 MG Iron 28 MG No 1{ table t} QD Iron 28 MG Levothyroxi ne Sodium 75 MCG Levothyroxi ne Sodium 75 MCG No QD Levothyrox ine Sodium 75 MCG Vitamin C 500 MG Vitamin C 500 MG No Vitamin C 500 MG Omeprazole 40 MG Omeprazole 40 MG No QD Omeprazole 40 MG Iron 28 MG Iron 28 MG No 1{ table t} QD Iron 28 MG Levothyroxi ne Sodium 75 MCG Levothyroxi ne Sodium 75 MCG No QD Levothyrox ine Sodium 75 MCG Omeprazole 40 MG Omeprazole 40 MG No QD Omeprazole 40 MG Iron 28 MG Iron 28 MG No 1{ table t} QD Iron 28 MG Vitamin C 500 MG Vitamin C 500 MG No Vitamin C 500 MG Vitamin C 500 MG Vitamin C 500 MG No Vitamin C 500 MG Iron 28 MG Iron 28 MG No 1{ table t} QD Iron 28 MG Omeprazole 40 MG Omeprazole 40 MG No QD Omeprazole 40 MG Iron 28 MG Iron 28 MG No 1{ table t} QD Iron 28 MG Omeprazole 40 MG Omeprazole 40 MG No QD Omeprazole 40 MG Vitamin C 500 MG Vitamin C 500 MG No Vitamin C 500 MG Gabapentin 100 MG Gabapentin 100 MG No Gabapentin 100 MG Vitamin C 500 MG Vitamin C 500 MG No Vitamin C 500 MG Iron 28 MG Iron 28 MG No 1{ table t} QD Iron 28 MG Omeprazole 40 MG Omeprazole 40 MG No QD Omeprazole 40 MG Gabapentin 100 MG Gabapentin 100 MG No Gabapentin 100 MG Iron 28 MG Iron 28 MG No 1{ table t} QD Iron 28 MG Vitamin C 500 MG Vitamin C 500 MG No Vitamin C 500 MG Gabapentin 100 MG Gabapentin 100 MG No Gabapentin 100 MG Omeprazole 40 MG Omeprazole 40 MG No QD Omeprazole 40 MG Lidocaine & Adhesive Sheet 5 % (Patch) Lidocaine & Adhesive Sheet 5 % (Patch) No QD Lidocaine & Adhesive Sheet 5 % (Patch) Gabapentin 600 MG Gabapentin 600 MG No 1{table t} QD Gabapentin 600 MG Omeprazole 40 MG Omeprazole 40 MG No QD Omeprazole 40 MG Lidocaine & Adhesive Sheet 5 % (Patch) Lidocaine & Adhesive Sheet 5 % (Patch) No QD Lidocaine & Adhesive Sheet 5 % (Patch) Vitamin C 500 MG Vitamin C 500 MG No Vitamin C 500 MG Iron 28 MG Iron 28 MG No 1{ table t} QD Iron 28 MG Gabapentin 100 MG Gabapentin 100 MG No Gabapentin 100 MG Gabapentin 600 MG Gabapentin 600 MG No 1{table t} QD Gabapentin 600 MG Gabapentin 600 MG Gabapentin 600 MG No 1{table t} QD Gabapentin 600 MG Iron 28 MG Iron 28 MG No 1{ table t} QD Iron 28 MG Lidocaine & Adhesive Sheet 5 % (Patch) Lidocaine & Adhesive Sheet 5 % (Patch) No QD Lidocaine & Adhesive Sheet 5 % (Patch) Omeprazole 40 MG Omeprazole 40 MG No QD Omeprazole 40 MG Vitamin C 500 MG Vitamin C 500 MG No Vitamin C 500 MG Gabapentin 100 MG Gabapentin 100 MG No Gabapentin 100 MG Gabapentin 600 MG Gabapentin 600 MG No 1{table t} QD Gabapentin 600 MG Iron 28 MG Iron 28 MG No 1{ table t} QD Iron 28 MG Lidocaine & Adhesive Sheet 5 % (Patch) Lidocaine & Adhesive Sheet 5 % (Patch) No QD Lidocaine & Adhesive Sheet 5 % (Patch) Omeprazole 40 MG Omeprazole 40 MG No QD Omeprazole 40 MG Vitamin C 500 MG Vitamin C 500 MG No Vitamin C 500 MG Gabapentin 100 MG Gabapentin 100 MG No Gabapentin 100 MG Gabapentin 600 MG Gabapentin 600 MG No 1{table t} QD Gabapentin 600 MG Iron 28 MG Iron 28 MG No 1{ table t} QD Iron 28 MG Lidocaine & Adhesive Sheet 5 % (Patch) Lidocaine & Adhesive Sheet 5 % (Patch) No QD Lidocaine & Adhesive Sheet 5 % (Patch) Omeprazole 40 MG Omeprazole 40 MG No QD Omeprazole 40 MG Vitamin C 500 MG Vitamin C 500 MG No Vitamin C 500 MG Gabapentin 100 MG Gabapentin 100 MG No Gabapentin 100 MG Lidocaine & Adhesive Sheet 5 % (Patch) Lidocaine & Adhesive Sheet 5 % (Patch) No QD Lidocaine & Adhesive Sheet 5 % (Patch) Vitamin C 500 MG Vitamin C 500 MG No Vitamin C 500 MG Gabapentin 600 MG Gabapentin 600 MG No 1{table t} QD Gabapentin 600 MG Gabapentin 100 MG Gabapentin 100 MG No Gabapentin 100 MG Iron 28 MG Iron 28 MG No 1{ table t} QD Iron 28 MG Omeprazole 40 MG Omeprazole 40 MG No QD Omeprazole 40 MG Vitamin C 500 MG Vitamin C 500 MG No Vitamin C 500 MG Omeprazole 40 MG Omeprazole 40 MG No QD Omeprazole 40 MG Gabapentin 100 MG Gabapentin 100 MG No Gabapentin 100 MG Lidocaine & Adhesive Sheet 5 % (Patch) Lidocaine & Adhesive Sheet 5 % (Patch) No QD Lidocaine & Adhesive Sheet 5 % (Patch) Iron 28 MG Iron 28 MG No 1{ table t} QD Iron 28 MG Gabapentin 600 MG Gabapentin 600 MG No 1{table t} QD Gabapentin 600 MG Lidocaine & Adhesive Sheet 5 % (Patch) Lidocaine & Adhesive Sheet 5 % (Patch) No QD Lidocaine & Adhesive Sheet 5 % (Patch) Iron 28 MG Iron 28 MG No 1{ table t} QD Iron 28 MG Omeprazole 40 MG Omeprazole 40 MG No QD Omeprazole 40 MG Gabapentin 100 MG Gabapentin 100 MG No Gabapentin 100 MG Gabapentin 600 MG Gabapentin 600 MG No 1{table t} QD Gabapentin 600 MG Vitamin C 500 MG Vitamin C 500 MG No Vitamin C 500 MG Lidocaine & Adhesive Sheet 5 % (Patch) Lidocaine & Adhesive Sheet 5 % (Patch) No QD Lidocaine & Adhesive Sheet 5 % (Patch) Iron 28 MG Iron 28 MG No 1{ table t} QD Iron 28 MG Omeprazole 40 MG Omeprazole 40 MG No QD Omeprazole 40 MG Gabapentin 100 MG Gabapentin 100 MG No Gabapentin 100 MG Gabapentin 600 MG Gabapentin 600 MG No 1{table t} QD Gabapentin 600 MG Vitamin C 500 MG Vitamin C 500 MG No Vitamin C 500 MG Gabapentin 600 MG Gabapentin 600 MG No 1{table t} QD Gabapentin 600 MG Vitamin C 500 MG Vitamin C 500 MG No Vitamin C 500 MG Lidocaine & Adhesive Sheet 5 % (Patch) Lidocaine & Adhesive Sheet 5 % (Patch) No QD Lidocaine & Adhesive Sheet 5 % (Patch) Iron 28 MG Iron 28 MG No 1{ table t} QD Iron 28 MG Omeprazole 40 MG Omeprazole 40 MG No QD Omeprazole 40 MG Gabapentin 100 MG Gabapentin 100 MG No Gabapentin 100 MG Gabapentin 600 MG Gabapentin 600 MG No 1{table t} QD Gabapentin 600 MG Omeprazole 40 MG Omeprazole 40 MG No QD Omeprazole 40 MG Vitamin C 500 MG Vitamin C 500 MG No Vitamin C 500 MG Iron 28 MG Iron 28 MG No 1{ table t} QD Iron 28 MG Lidocaine & Adhesive Sheet 5 % (Patch) Lidocaine & Adhesive Sheet 5 % (Patch) No QD Lidocaine & Adhesive Sheet 5 % (Patch) Gabapentin 100 MG Gabapentin 100 MG No Gabapentin 100 MG Gabapentin 600 MG Gabapentin 600 MG No 1{table t} QD Gabapentin 600 MG Omeprazole 40 MG Omeprazole 40 MG No QD Omeprazole 40 MG Vitamin C 500 MG Vitamin C 500 MG No Vitamin C 500 MG Iron 28 MG Iron 28 MG No 1{ table t} QD Iron 28 MG Lidocaine & Adhesive Sheet 5 % (Patch) Lidocaine & Adhesive Sheet 5 % (Patch) No QD Lidocaine & Adhesive Sheet 5 % (Patch) Gabapentin 100 MG Gabapentin 100 MG No Gabapentin 100 MG Gabapentin 600 MG Gabapentin 600 MG No 1{table t} QD Gabapentin 600 MG Omeprazole 40 MG Omeprazole 40 MG No QD Omeprazole 40 MG Vitamin C 500 MG Vitamin C 500 MG No Vitamin C 500 MG Iron 28 MG Iron 28 MG No 1{ table t} QD Iron 28 MG Lidocaine & Adhesive Sheet 5 % (Patch) Lidocaine & Adhesive Sheet 5 % (Patch) No QD Lidocaine & Adhesive Sheet 5 % (Patch) Gabapentin 100 MG Gabapentin 100 MG No Gabapentin 100 MG Iron 28 MG Iron 28 MG No 1{ table t} QD Iron 28 MG Levothyroxi ne Sodium 88 MCG Levothyroxi ne Sodium 88 MCG No QD Levothyrox ine Sodium 88 MCG Gabapentin 600 MG Gabapentin 600 MG No 1{table t} QD Gabapentin 600 MG Gabapentin 100 MG Gabapentin 100 MG No Gabapentin 100 MG Lidocaine & Adhesive Sheet 5 % (Patch) Lidocaine & Adhesive Sheet 5 % (Patch) No QD Lidocaine & Adhesive Sheet 5 % (Patch) Vitamin C 500 MG Vitamin C 500 MG No Vitamin C 500 MG Omeprazole 40 MG Omeprazole 40 MG No QD Omeprazole 40 MG Iron 28 MG Iron 28 MG No 1{ table t} QD Iron 28 MG Levothyroxi ne Sodium 88 MCG Levothyroxi ne Sodium 88 MCG No QD Levothyrox ine Sodium 88 MCG Gabapentin 600 MG Gabapentin 600 MG No 1{table t} QD Gabapentin 600 MG Lidocaine & Adhesive Sheet 5 % (Patch) Lidocaine & Adhesive Sheet 5 % (Patch) No QD Lidocaine & Adhesive Sheet 5 % (Patch) Gabapentin 100 MG Gabapentin 100 MG No Gabapentin 100 MG Omeprazole 40 MG Omeprazole 40 MG No QD Omeprazole 40 MG Vitamin C 500 MG Vitamin C 500 MG No Vitamin C 500 MG Iron 28 MG Iron 28 MG No 1{ table t} QD Iron 28 MG Levothyroxi ne Sodium 88 MCG Levothyroxi ne Sodium 88 MCG No QD Levothyrox ine Sodium 88 MCG Gabapentin 600 MG Gabapentin 600 MG No 1{table t} QD Gabapentin 600 MG Lidocaine & Adhesive Sheet 5 % (Patch) Lidocaine & Adhesive Sheet 5 % (Patch) No QD Lidocaine & Adhesive Sheet 5 % (Patch) Gabapentin 100 MG Gabapentin 100 MG No Gabapentin 100 MG Omeprazole 40 MG Omeprazole 40 MG No QD Omeprazole 40 MG Vitamin C 500 MG Vitamin C 500 MG No Vitamin C 500 MG Iron 28 MG Iron 28 MG No 1{ table t} QD Iron 28 MG Levothyroxi ne Sodium 88 MCG Levothyroxi ne Sodium 88 MCG No QD Levothyrox ine Sodium 88 MCG Gabapentin 600 MG Gabapentin 600 MG No 1{table t} QD Gabapentin 600 MG Lidocaine & Adhesive Sheet 5 % (Patch) Lidocaine & Adhesive Sheet 5 % (Patch) No QD Lidocaine & Adhesive Sheet 5 % (Patch) Gabapentin 100 MG Gabapentin 100 MG No Gabapentin 100 MG Omeprazole 40 MG Omeprazole 40 MG No QD Omeprazole 40 MG Vitamin C 500 MG Vitamin C 500 MG No Vitamin C 500 MG Iron 28 MG Iron 28 MG No 1{ table t} QD Iron 28 MG Levothyroxi ne Sodium 88 MCG Levothyroxi ne Sodium 88 MCG No QD Levothyrox ine Sodium 88 MCG Gabapentin 600 MG Gabapentin 600 MG No 1{table t} QD Gabapentin 600 MG Lidocaine & Adhesive Sheet 5 % (Patch) Lidocaine & Adhesive Sheet 5 % (Patch) No QD Lidocaine & Adhesive Sheet 5 % (Patch) Gabapentin 100 MG Gabapentin 100 MG No Gabapentin 100 MG Omeprazole 40 MG Omeprazole 40 MG No QD Omeprazole 40 MG Vitamin C 500 MG Vitamin C 500 MG No Vitamin C 500 MG Iron 28 MG Iron 28 MG No 1{ table t} QD Iron 28 MG Lidocaine & Adhesive Sheet 5 % (Patch) Lidocaine & Adhesive Sheet 5 % (Patch) No QD Lidocaine & Adhesive Sheet 5 % (Patch) Levothyroxi ne Sodium 88 MCG Levothyroxi ne Sodium 88 MCG No QD Levothyrox ine Sodium 88 MCG Gabapentin 600 MG Gabapentin 600 MG No 1{table t} QD Gabapentin 600 MG valACYclovi r HCl 500 MG valACYclovi r HCl 500 MG No valACYclov ir HCl 500 MG Vitamin C 500 MG Vitamin C 500 MG No Vitamin C 500 MG Gabapentin 100 MG Gabapentin 100 MG No Gabapentin 100 MG Omeprazole 40 MG Omeprazole 40 MG No QD Omeprazole 40 MG Gabapentin 600 MG Gabapentin 600 MG No 1{table t} QD Gabapentin 600 MG Iron 28 MG Iron 28 MG No 1{ table t} QD Iron 28 MG Omeprazole 40 MG Omeprazole 40 MG No QD Omeprazole 40 MG Gabapentin 600 MG Gabapentin 600 MG No 1{table t} QD Gabapentin 600 MG Vitamin C 500 MG Vitamin C 500 MG No Vitamin C 500 MG valACYclovi r HCl 500 MG valACYclovi r HCl 500 MG No valACYclov ir HCl 500 MG Omeprazole 40 MG Omeprazole 40 MG No QD Omeprazole 40 MG Lidocaine & Adhesive Sheet 5 % (Patch) Lidocaine & Adhesive Sheet 5 % (Patch) No QD Lidocaine & Adhesive Sheet 5 % (Patch) Iron 28 MG Iron 28 MG No 1{ table t} QD Iron 28 MG Gabapentin 600 MG Gabapentin 600 MG No 1{table t} QD Gabapentin 600 MG Vitamin C 500 MG Vitamin C 500 MG No Vitamin C 500 MG valACYclovi r HCl 500 MG valACYclovi r HCl 500 MG No valACYclov ir HCl 500 MG Omeprazole 40 MG Omeprazole 40 MG No QD Omeprazole 40 MG Lidocaine & Adhesive Sheet 5 % (Patch) Lidocaine & Adhesive Sheet 5 % (Patch) No QD Lidocaine & Adhesive Sheet 5 % (Patch) Vitamin C 500 MG Vitamin C 500 MG No Vitamin C 500 MG Iron 28 MG Iron 28 MG No 1{ table t} QD Iron 28 MG Gabapentin 600 MG Gabapentin 600 MG No 1{table t} QD Gabapentin 600 MG Vitamin C 500 MG Vitamin C 500 MG No Vitamin C 500 MG valACYclovi r HCl 500 MG valACYclovi r HCl 500 MG No valACYclov ir HCl 500 MG Iron 28 MG Iron 28 MG No 1{ table t} QD Iron 28 MG Omeprazole 40 MG Omeprazole 40 MG No QD Omeprazole 40 MG Lidocaine & Adhesive Sheet 5 % (Patch) Lidocaine & Adhesive Sheet 5 % (Patch) No QD Lidocaine & Adhesive Sheet 5 % (Patch) Lidocaine & Adhesive Sheet 5 % (Patch) Lidocaine & Adhesive Sheet 5 % (Patch) No QD Lidocaine & Adhesive Sheet 5 % (Patch) predniSONE 5 MG predniSONE 5 MG No 1{table t} QD predniSONE 5 MG Gabapentin 600 MG Gabapentin 600 MG No 1{table t} QD Gabapentin 600 MG Iron 325 (65 Fe) MG Iron 325 (65 Fe) MG No 1{table t} QD Iron 325 (65 Fe) MG Vitamin C 500 MG Vitamin C 500 MG No Vitamin C 500 MG valACYclovi r HCl 500 MG valACYclovi r HCl 500 MG No 1{table t} QD valACYclov ir HCl 500 MG Omeprazole 40 MG Omeprazole 40 MG No BID Omeprazole 40 MG Claritin 10 MG Claritin 10 MG No 1{table t} QD Claritin 10 MG Levothyroxi ne Sodium 100 MCG Levothyroxi ne Sodium 100 MCG No QD Levothyrox ine Sodium 100 MCG Gabapentin 100 MG Gabapentin 100 MG No Gabapentin 100 MG Hydroxychlo roquine Sulfate 200 MG Hydroxychlo roquine Sulfate 200 MG No BID Hydroxychl oroquine Sulfate 200 MG valACYclovi r HCl 1 GM valACYclovi r HCl 1 GM No 1{table t} QD valACYclov ir HCl 1 GM Probiotic - Probiotic - No Pr obiotic - Aspirin 81 MG Aspirin 81 MG No 1{table t} QD Aspirin 81 MG predniSONE 5 MG predniSONE 5 MG No 1{table t} QD predniSONE 5 MG Gabapentin 600 MG Gabapentin 600 MG No 1{table t} QD Gabapentin 600 MG Iron 325 (65 Fe) MG Iron 325 (65 Fe) MG No 1{table t} QD Iron 325 (65 Fe) MG Vitamin C 500 MG Vitamin C 500 MG No Vitamin C 500 MG valACYclovi r HCl 500 MG valACYclovi r HCl 500 MG No 1{table t} QD valACYclov ir HCl 500 MG Omeprazole 40 MG Omeprazole 40 MG No BID Omeprazole 40 MG Claritin 10 MG Claritin 10 MG No 1{table t} QD Claritin 10 MG Levothyroxi ne Sodium 100 MCG Levothyroxi ne Sodium 100 MCG No QD Levothyrox ine Sodium 100 MCG Hydroxychlo roquine Sulfate 200 MG Hydroxychlo roquine Sulfate 200 MG No BID Hydroxychl oroquine Sulfate 200 MG valACYclovi r HCl 1 GM valACYclovi r HCl 1 GM No 1{table t} QD valACYclov ir HCl 1 GM Probiotic - Probiotic - No Pr obiotic - Aspirin 81 MG Aspirin 81 MG No 1{table t} QD Aspirin 81 MG predniSONE 5 MG predniSONE 5 MG No 1{table t} QD predniSONE 5 MG Gabapentin 600 MG Gabapentin 600 MG No 1{table t} QD Gabapentin 600 MG Iron 325 (65 Fe) MG Iron 325 (65 Fe) MG No 1{table t} QD Iron 325 (65 Fe) MG Vitamin C 500 MG Vitamin C 500 MG No Vitamin C 500 MG valACYclovi r HCl 500 MG valACYclovi r HCl 500 MG No 1{table t} QD valACYclov ir HCl 500 MG Omeprazole 40 MG Omeprazole 40 MG No BID Omeprazole 40 MG Claritin 10 MG Claritin 10 MG No 1{table t} QD Claritin 10 MG Levothyroxi ne Sodium 100 MCG Levothyroxi ne Sodium 100 MCG No QD Levothyrox ine Sodium 100 MCG Hydroxychlo roquine Sulfate 200 MG Hydroxychlo roquine Sulfate 200 MG No BID Hydroxychl oroquine Sulfate 200 MG valACYclovi r HCl 1 GM valACYclovi r HCl 1 GM No 1{table t} QD valACYclov ir HCl 1 GM Probiotic - Probiotic - No Pr obiotic - Aspirin 81 MG Aspirin 81 MG No 1{table t} QD Aspirin 81 MG predniSONE 5 MG predniSONE 5 MG No 1{table t} QD predniSONE 5 MG Gabapentin 600 MG Gabapentin 600 MG No 1{table t} QD Gabapentin 600 MG Iron 325 (65 Fe) MG Iron 325 (65 Fe) MG No 1{table t} QD Iron 325 (65 Fe) MG Vitamin C 500 MG Vitamin C 500 MG No Vitamin C 500 MG valACYclovi r HCl 500 MG valACYclovi r HCl 500 MG No 1{table t} QD valACYclov ir HCl 500 MG Omeprazole 40 MG Omeprazole 40 MG No BID Omeprazole 40 MG Claritin 10 MG Claritin 10 MG No 1{table t} QD Claritin 10 MG Levothyroxi ne Sodium 100 MCG Levothyroxi ne Sodium 100 MCG No QD Levothyrox ine Sodium 100 MCG Hydroxychlo roquine Sulfate 200 MG Hydroxychlo roquine Sulfate 200 MG No BID Hydroxychl oroquine Sulfate 200 MG valACYclovi r HCl 1 GM valACYclovi r HCl 1 GM No 1{table t} QD valACYclov ir HCl 1 GM Probiotic - Probiotic - No Pr obiotic - Aspirin 81 MG Aspirin 81 MG No 1{table t} QD Aspirin 81 MG Gabapentin 600 MG Gabapentin 600 MG No 1{table t} QD Gabapentin 600 MG predniSONE 5 MG predniSONE 5 MG No 1{table t} QD predniSONE 5 MG Gabapentin 600 MG Gabapentin 600 MG No 1{table t} QD Gabapentin 600 MG Iron 325 (65 Fe) MG Iron 325 (65 Fe) MG No 1{table t} QD Iron 325 (65 Fe) MG Vitamin C 500 MG Vitamin C 500 MG No Vitamin C 500 MG valACYclovi r HCl 500 MG valACYclovi r HCl 500 MG No 1{table t} QD valACYclov ir HCl 500 MG Omeprazole 40 MG Omeprazole 40 MG No BID Omeprazole 40 MG Claritin 10 MG Claritin 10 MG No 1{table t} QD Claritin 10 MG Levothyroxi ne Sodium 100 MCG Levothyroxi ne Sodium 100 MCG No QD Levothyrox ine Sodium 100 MCG Hydroxychlo roquine Sulfate 200 MG Hydroxychlo roquine Sulfate 200 MG No BID Hydroxychl oroquine Sulfate 200 MG valACYclovi r HCl 1 GM valACYclovi r HCl 1 GM No 1{table t} QD valACYclov ir HCl 1 GM Probiotic - Probiotic - No Pr obiotic - Aspirin 81 MG Aspirin 81 MG No 1{table t} QD Aspirin 81 MG Omeprazole 40 MG Omeprazole 40 MG No QD Omeprazole 40 MG predniSONE 5 MG predniSONE 5 MG No 1{table t} QD predniSONE 5 MG Gabapentin 600 MG Gabapentin 600 MG No 1{table t} QD Gabapentin 600 MG Iron 325 (65 Fe) MG Iron 325 (65 Fe) MG No 1{table t} QD Iron 325 (65 Fe) MG Vitamin C 500 MG Vitamin C 500 MG No Vitamin C 500 MG valACYclovi r HCl 500 MG valACYclovi r HCl 500 MG No 1{table t} QD valACYclov ir HCl 500 MG Omeprazole 40 MG Omeprazole 40 MG No BID Omeprazole 40 MG Claritin 10 MG Claritin 10 MG No 1{table t} QD Claritin 10 MG Levothyroxi ne Sodium 100 MCG Levothyroxi ne Sodium 100 MCG No QD Levothyrox ine Sodium 100 MCG Hydroxychlo roquine Sulfate 200 MG Hydroxychlo roquine Sulfate 200 MG No BID Hydroxychl oroquine Sulfate 200 MG valACYclovi r HCl 1 GM valACYclovi r HCl 1 GM No 1{table t} QD valACYclov ir HCl 1 GM Probiotic - Probiotic - No Pr obiotic - Aspirin 81 MG Aspirin 81 MG No 1{table t} QD Aspirin 81 MG valACYclovi r HCl 500 MG valACYclovi r HCl 500 MG No 1{table t} QD valACYclov ir HCl 500 MG Folic Acid 1 MG Folic Acid 1 MG No 1{table t} QD Folic Acid 1 MG Probiotic - Probiotic - No Pr obiotic - Methotrexat e Sodium 2.5 MG Methotrexat e Sodium 2.5 MG No Methotrexa te Sodium 2.5 MG Celecoxib 200 MG Celecoxib 200 MG No 1{capsu le_with _food} QD Celecoxib 200 MG Vitamin C 500 MG Vitamin C 500 MG No Vitamin C 500 MG valACYclovi r HCl 1 GM valACYclovi r HCl 1 GM No 1{table t} QD valACYclov ir HCl 1 GM Famotidine 20 MG Famotidine 20 MG No 1{table t_at_be dtime_a s_neede d} QD Famotidine 20 MG Aspirin 81 MG Aspirin 81 MG No 1{table t} QD Aspirin 81 MG Vitamin C 500 MG Vitamin C 500 MG No Vitamin C 500 MG Iron 325 (65 Fe) MG Iron 325 (65 Fe) MG No 1{table t} QD Iron 325 (65 Fe) MG Diclofenac Sodium 75 MG Diclofenac Sodium 75 MG No 1{table t_as_ne eded} BID Diclofenac Sodium 75 MG Hydroxychlo roquine Sulfate 200 MG Hydroxychlo roquine Sulfate 200 MG No BID Hydroxychl oroquine Sulfate 200 MG Claritin 10 MG Claritin 10 MG No 1{table t} QD Claritin 10 MG Levothyroxi ne Sodium 100 MCG Levothyroxi ne Sodium 100 MCG No QD Levothyrox ine Sodium 100 MCG Omeprazole 40 MG Omeprazole 40 MG No BID Omeprazole 40 MG Gabapentin 600 MG Gabapentin 600 MG No 1{table t} QD Gabapentin 600 MG Iron 28 MG Iron 28 MG No 1{ table t} QD Iron 28 MG valACYclovi r HCl 500 MG valACYclovi r HCl 500 MG No 1{table t} QD valACYclov ir HCl 500 MG Folic Acid 1 MG Folic Acid 1 MG No 1{table t} QD Folic Acid 1 MG Probiotic - Probiotic - No Pr obiotic - Lidocaine & Adhesive Sheet 5 % (Patch) Lidocaine & Adhesive Sheet 5 % (Patch) No QD Lidocaine & Adhesive Sheet 5 % (Patch) Methotrexat e Sodium 2.5 MG Methotrexat e Sodium 2.5 MG No Methotrexa te Sodium 2.5 MG Celecoxib 200 MG Celecoxib 200 MG No 1{capsu le_with _food} QD Celecoxib 200 MG Vitamin C 500 MG Vitamin C 500 MG No Vitamin C 500 MG valACYclovi r HCl 1 GM valACYclovi r HCl 1 GM No 1{table t} QD valACYclov ir HCl 1 GM Famotidine 20 MG Famotidine 20 MG No 1{table t_at_be dtime_a s_neede d} QD Famotidine 20 MG Aspirin 81 MG Aspirin 81 MG No 1{table t} QD Aspirin 81 MG Iron 325 (65 Fe) MG Iron 325 (65 Fe) MG No 1{table t} QD Iron 325 (65 Fe) MG Diclofenac Sodium 75 MG Diclofenac Sodium 75 MG No 1{table t_as_ne eded} BID Diclofenac Sodium 75 MG Hydroxychlo roquine Sulfate 200 MG Hydroxychlo roquine Sulfate 200 MG No BID Hydroxychl oroquine Sulfate 200 MG Claritin 10 MG Claritin 10 MG No 1{table t} QD Claritin 10 MG Gabapentin 100 MG Gabapentin 100 MG No Gabapentin 100 MG Levothyroxi ne Sodium 100 MCG Levothyroxi ne Sodium 100 MCG No QD Levothyrox ine Sodium 100 MCG Omeprazole 40 MG Omeprazole 40 MG No BID Omeprazole 40 MG Gabapentin 600 MG Gabapentin 600 MG No 1{table t} QD Gabapentin 600 MG Gabapentin 600 MG Gabapentin 600 MG No 1{table t} QD Gabapentin 600 MG valACYclovi r HCl 1 GM valACYclovi r HCl 1 GM No 1{table t} QD valACYclov ir HCl 1 GM Aspirin 81 MG Aspirin 81 MG No 1{table t} QD Aspirin 81 MG Folic Acid 1 MG Folic Acid 1 MG No 1{table t} QD Folic Acid 1 MG Claritin 10 MG Claritin 10 MG No 1{table t} QD Claritin 10 MG Diclofenac Sodium 75 MG Diclofenac Sodium 75 MG No 1{table t_as_ne eded} BID Diclofenac Sodium 75 MG Probiotic - Probiotic - No Pr obiotic - Omeprazole 40 MG Omeprazole 40 MG No BID Omeprazole 40 MG Methotrexat e Sodium 2.5 MG Methotrexat e Sodium 2.5 MG No Methotrexa te Sodium 2.5 MG Famotidine 20 MG Famotidine 20 MG No 1{table t_at_be dtime_a s_neede d} QD Famotidine 20 MG Levothyroxi ne Sodium 100 MCG Levothyroxi ne Sodium 100 MCG No QD Levothyrox ine Sodium 100 MCG valACYclovi r HCl 500 MG valACYclovi r HCl 500 MG No 1{table t} QD valACYclov ir HCl 500 MG Iron 325 (65 Fe) MG Iron 325 (65 Fe) MG No 1{table t} QD Iron 325 (65 Fe) MG Hydroxychlo roquine Sulfate 200 MG Hydroxychlo roquine Sulfate 200 MG No BID Hydroxychl oroquine Sulfate 200 MG Celecoxib 200 MG Celecoxib 200 MG No 1{capsu le_with _food} QD Celecoxib 200 MG Vitamin C 500 MG Vitamin C 500 MG No Vitamin C 500 MG Gabapentin 600 MG Gabapentin 600 MG No 1{table t} QD Gabapentin 600 MG valACYclovi r HCl 1 GM valACYclovi r HCl 1 GM No 1{table t} QD valACYclov ir HCl 1 GM Aspirin 81 MG Aspirin 81 MG No 1{table t} QD Aspirin 81 MG Folic Acid 1 MG Folic Acid 1 MG No 1{table t} QD Folic Acid 1 MG Claritin 10 MG Claritin 10 MG No 1{table t} QD Claritin 10 MG Diclofenac Sodium 75 MG Diclofenac Sodium 75 MG No 1{table t_as_ne eded} BID Diclofenac Sodium 75 MG Probiotic - Probiotic - No Pr obiotic - Omeprazole 40 MG Omeprazole 40 MG No BID Omeprazole 40 MG Methotrexat e Sodium 2.5 MG Methotrexat e Sodium 2.5 MG No Methotrexa te Sodium 2.5 MG Famotidine 20 MG Famotidine 20 MG No 1{table t_at_be dtime_a s_neede d} QD Famotidine 20 MG Levothyroxi ne Sodium 100 MCG Levothyroxi ne Sodium 100 MCG No QD Levothyrox ine Sodium 100 MCG valACYclovi r HCl 500 MG valACYclovi r HCl 500 MG No 1{table t} QD valACYclov ir HCl 500 MG Iron 325 (65 Fe) MG Iron 325 (65 Fe) MG No 1{table t} QD Iron 325 (65 Fe) MG Hydroxychlo roquine Sulfate 200 MG Hydroxychlo roquine Sulfate 200 MG No BID Hydroxychl oroquine Sulfate 200 MG Celecoxib 200 MG Celecoxib 200 MG No 1{capsu le_with _food} QD Celecoxib 200 MG Vitamin C 500 MG Vitamin C 500 MG No Vitamin C 500 MG valACYclovi r HCl 500 MG valACYclovi r HCl 500 MG 05-29 00:00 :00 No 1{table t} QD valACYclov ir HCl 500 MG valACYclovi r HCl 500 MG valACYclovi r HCl 500 MG 05-29 00:00 :00 No 1{table t} QD valACYclov ir HCl 500 MG valACYclovi r HCl 500 MG valACYclovi r HCl 500 MG 05-29 00:00 :00 No 1{table t} QD valACYclov ir HCl 500 MG valACYclovi r HCl 1 GM valACYclovi r HCl 1 GM 03-28 00:00 :00 No 1{table t} QD valACYclov ir HCl 1 GM valACYclovi r HCl 1 GM valACYclovi r HCl 1 03-28 00:00 :00 No 1{table t} QD valACYclov ir HCl 1 GM valACYclovi r HCl 1 GM valACYclovi r HCl 1 03-28 00:00 :00 No 1{table t} QD valACYclov ir HCl 1 GM valACYclovi r HCl 1 GM valACYclovi r HCl 1 03-28 00:00 :00 No 1{table t} QD valACYclov ir HCl 1 GM valACYclovi r HCl 1 GM valACYclovi r HCl 1 03-28 00:00 :00 No 1{table t} QD valACYclov ir HCl 1 GM Immunizations Ordered Immunization Name Filled Immunization Name Date Status Comments Source Flucelvax - multidose vial Flucelvax - multidose vial 2021-12-19 08:43:00 Completed [facility] Flucelvax - multidose vial Flucelvax - multidose vial 2021-12-19 08:43:00 Completed [facility] Flucelvax - multidose vial Flucelvax - multidose vial 2021-12-19 08:43:00 Completed [facility] Flucelvax - multidose vial Flucelvax - multidose vial 2021-12-19 08:43:00 Completed [facility] Flucelvax - multidose vial Flucelvax - multidose vial 2021-12-19 08:43:00 Completed [facility] Flucelvax - multidose vial Flucelvax - multidose vial 2021-12-19 08:43:00 Completed [facility] Flucelvax - multidose vial Flucelvax - multidose vial 2021-12-19 08:43:00 Completed [facility] Flucelvax - multidose vial Flucelvax - multidose vial 2021-12-19 08:43:00 Completed [facility] Flucelvax - multidose vial Flucelvax - multidose vial 2021-12-19 08:43:00 Completed [facility] Flucelvax - multidose vial Flucelvax - multidose vial 2021-12-19 08:43:00 Completed [facility] Flucelvax - multidose vial Flucelvax - multidose vial 2021-12-19 08:43:00 Completed [facility] Flucelvax - multidose vial Flucelvax - multidose vial 2021-12-19 08:43:00 Completed [facility] Flucelvax - multidose vial Flucelvax - multidose vial 2021-12-19 08:43:00 Completed [facility] Flucelvax - multidose vial Flucelvax - multidose vial 2021-12-19 08:43:00 Completed [facility] Flucelvax - multidose vial Flucelvax - multidose vial 2021-12-19 08:43:00 Completed [facility] Flucelvax - multidose vial Flucelvax - multidose vial 2021-12-19 08:43:00 Completed [facility] Flucelvax - multidose vial Flucelvax - multidose vial 2021-12-19 08:43:00 Completed [facility] Flucelvax - multidose vial Flucelvax - multidose vial 2021-12-19 08:43:00 Completed [facility] Flucelvax - multidose vial Flucelvax - multidose vial 2021-12-19 08:43:00 Completed [facility] Flucelvax - multidose vial Flucelvax - multidose vial 2021-12-19 08:43:00 Completed [facility] Flucelvax - multidose vial Flucelvax - multidose vial 2021-12-19 08:43:00 Completed [facility] Flucelvax - multidose vial Flucelvax - multidose vial 2021-12-19 08:43:00 Completed [facility] Flucelvax - multidose vial Flucelvax - multidose vial 2021-12-19 08:43:00 Completed [facility] Flucelvax - multidose vial Flucelvax - multidose vial 2021-12-19 08:43:00 Completed [facility] Flucelvax - multidose vial Flucelvax - multidose vial 2021-12-19 08:43:00 Completed [facility] Flucelvax - multidose vial Flucelvax - multidose vial 2021-12-19 08:43:00 Completed [facility] Flucelvax - multidose vial Flucelvax - multidose vial 2021-12-19 08:43:00 Completed [facility] Flucelvax - multidose vial Flucelvax - multidose vial 2021-12-19 08:43:00 Completed [facility] Flucelvax (ccIIV4) - MDV - 0.5mL Flucelvax (ccIIV4) - MDV - 0.5mL Unknown Completed [facility] Flucelvax (ccIIV4) - MDV - 0.5mL Flucelvax (ccIIV4) - MDV - 0.5mL Unknown Completed [facility] Flucelvax (ccIIV4) - MDV - 0.5mL Flucelvax (ccIIV4) - MDV - 0.5mL Unknown Completed [facility] Flucelvax (ccIIV4) - MDV - 0.5mL Flucelvax (ccIIV4) - MDV - 0.5mL Unknown Completed [facility] Flucelvax (ccIIV4) - MDV - 0.5mL Flucelvax (ccIIV4) - MDV - 0.5mL Unknown Completed [facility] Flucelvax (ccIIV4) - MDV - 0.5mL Flucelvax (ccIIV4) - MDV - 0.5mL Unknown Completed [facility] Flucelvax - multidose vial Flucelvax - multidose vial Unknown Completed [facility] Flucelvax - multidose vial Flucelvax - multidose vial Unknown Completed [facility] Flucelvax - multidose vial Flucelvax - multidose vial Unknown Completed [facility] Flucelvax - multidose vial Flucelvax - multidose vial Unknown Completed [facility] Flucelvax - multidose vial Flucelvax - multidose vial Unknown Completed [facility] Flucelvax (ccIIV4) - MDV - 0.5mL Flucelvax (ccIIV4) - MDV - 0.5mL Unknown Completed [facility] Flucelvax (ccIIV4) - MDV - 0.5mL Flucelvax (ccIIV4) - MDV - 0.5mL Unknown Completed [facility] Flucelvax (ccIIV4) - MDV - 0.5mL Flucelvax (ccIIV4) - MDV - 0.5mL Unknown Completed [facility] Vital Signs Vital Name Observation Time Observation Value Comments S ource Systolic blood pressure 2023-11-15 15:07:00 133 mm[Hg] [facility] Diastolic blood pressure 2023-11-15 15:07:00 86 mm[Hg] [facility] Heart rate 2023-11-15 15:07:00 74 /min [facility] Body temperature 2023-11-15 15:07:00 37.11 Gi [facility] Respiratory rate 2023-11-15 15:07:00 16 /min [facility] Body weight 2023-11-15 15:07:00 58.514 kg [facility] BMI 2023-11-15 15:07:00 25.19 kg/m2 [facility] Oxygen saturation in Arterial blood by Pulse oximetry 2023-11-15 15:07:00 98 /min [facility] Systolic blood pressure 2023-11-08 19:44:00 109 mm[Hg] [facility] Diastolic blood pressure 2023-11-08 19:44:00 72 mm[Hg] [facility] Heart rate 2023-11-08 19:44:00 76 /min [facility] Body temperature 2023-11-08 19:44:00 38.22 Gi [facility] Respiratory rate 2023-11-08 19:44:00 17 /min [facility] Body height 2023-11-08 19:44:00 152.4 cm [facility] Body weight 2023-11-08 19:44:00 57.834 kg [facility] BMI 2023-11-08 19:44:00 24.90 kg/m2 [facility] Oxygen saturation in Arterial blood by Pulse oximetry 2023-11-08 19:44:00 98 /min [facility] Systolic blood pressure 2023-10-25 19:02:00 120 mm[Hg] [facility] Diastolic blood pressure 2023-10-25 19:02:00 81 mm[Hg] [facility] Heart rate 2023-10-25 19:02:00 62 /min [facility] Body temperature 2023-10-25 19:02:00 36.83 Gi [facility] Respiratory rate 2023-10-25 19:02:00 18 /min [facility] Body height 2023-10-25 19:02:00 152.4 cm [facility] Body weight 2023-10-25 19:02:00 56.518 kg [facility] BMI 2023-10-25 19:02:00 24.33 kg/m2 [facility] Oxygen saturation in Arterial blood by Pulse oximetry 2023-10-25 19:02:00 98 /min [facility] height 2023-10-11 08:00:00 60 [in_i] Commo n [facility] weight 2023-10-11 08:00:00 128.6 [lb_av] Co mmon [facility] temperature 2023-10-11 08:00:00 97.4 [degF] Com mon [facility] bmi 2023-10-11 08:00:00 25.11 kg/m2 Comm on [facility] oximetry 2023-10-11 08:00:00 97 % Commo n [facility] respiratory rate 2023-10-11 08:00:00 16 /min [facility] blood pressure systolic 2023-10-11 08:00:00 124 mm[Hg] [facility] blood pressure diastolic 2023-10-11 08:00:00 78 mm[Hg] [facility] height 2023-04-09 08:00:00 60 [in_i] Commo n [facility] weight 2023-04-09 08:00:00 129.8 [lb_av] Co mmon [facility] temperature 2023-04-09 08:00:00 97.6 [degF] Com mon [facility] bmi 2023-04-09 08:00:00 25.35 kg/m2 Comm on [facility] oximetry 2023-04-09 08:00:00 96 % Commo n [facility] respiratory rate 2023-04-09 08:00:00 16 /min [facility] blood pressure systolic 2023-04-09 08:00:00 132 mm[Hg] [facility] blood pressure diastolic 2023-04-09 08:00:00 74 mm[Hg] [facility] Systolic blood pressure 2023-03-19 18:41:00 107 mm[Hg] [facility] Diastolic blood pressure 2023-03-19 18:41:00 65 mm[Hg] [facility] Heart rate 2023-03-19 18:41:00 69 /min [facility] Body temperature 2023-03-19 18:41:00 36.83 Gi [facility] Respiratory rate 2023-03-19 18:41:00 18 /min [facility] Body height 2023-03-19 18:41:00 152.4 cm [facility] Body weight 2023-03-19 18:41:00 57.425 kg [facility] BMI 2023-03-19 18:41:00 24.72 kg/m2 [facility] Oxygen saturation in Arterial blood by Pulse oximetry 2023-03-19 18:41:00 98 /min [facility] height 2023-03-01 14:00:00 60 [in_i] Commo n [facility] weight 2023-03-01 14:00:00 124 [lb_av] Comm on [facility] bmi 2023-03-01 14:00:00 24.21 kg/m2 Comm on [facility] Systolic blood pressure 2022-12-14 18:36:00 120 mm[Hg] [facility] Diastolic blood pressure 2022-12-14 18:36:00 77 mm[Hg] [facility] Heart rate 2022-12-14 18:36:00 82 [facility] 2022-12-14 18:36:00 37 Gi [facility] Respiratory rate 2022-12-14 18:36:00 16 /min [facility] Body height 2022-12-14 18:36:00 152.4 cm [facility] Body weight 2022-12-14 18:36:00 57.153 kg [facility] BMI 2022-12-14 18:36:00 24.61 kg/m2 [facility] Oxygen saturation in Arterial blood by Pulse oximetry 2022-12-14 18:36:00 98 /min [facility] height 2022-11-30 16:20:00 60 [in_i] Commo n [facility] weight 2022-11-30 16:20:00 129.6 [lb_av] Co [facility]mon [facility] temperature 2022-11-30 16:20:00 97.0 [degF] Com mon [facility] bmi 2022-11-30 16:20:00 25.31 kg/m2 Comm on [facility] oximetry 2022-11-30 16:20:00 99 % Commo n [facility] respiratory rate 2022-11-30 16:20:00 16 /min [facility] blood pressure systolic 2022-11-30 16:20:00 108 mm[Hg] [facility] blood pressure diastolic 2022-11-30 16:20:00 69 mm[Hg] [facility] Systolic blood pressure 2022-11-04 01:11:00 125 mm[Hg] [facility] Diastolic blood pressure 2022-11-04 01:11:00 86 mm[Hg] [facility] Heart rate 2022-11-04 01:11:00 88 /min [facility] Body temperature 2022-11-04 01:11:00 36.72 Gi [facility] Respiratory rate 2022-11-04 01:11:00 17 /min [facility] Body height 2022-11-04 01:11:00 152.4 cm [facility] Body weight 2022-11-04 01:11:00 56.955 kg [facility] BMI 2022-11-04 01:11:00 24.52 kg/m2 [facility] Oxygen saturation in Arterial blood by Pulse oximetry 2022-11-04 01:11:00 98 /min [facility] height 2022-09-29 16:40:00 60 [in_i] Commo n [facility] weight 2022-09-29 16:40:00 123.4 [lb_av] Co mmon [facility] temperature 2022-09-29 16:40:00 97.3 [degF] Com mon [facility] bmi 2022-09-29 16:40:00 24.1 kg/m2 Commo n [facility] oximetry 2022-09-29 16:40:00 93 % Commo n [facility] respiratory rate 2022-09-29 16:40:00 17 /min [facility] blood pressure systolic 2022-09-29 16:40:00 107 mm[Hg] [facility] blood pressure diastolic 2022-09-29 16:40:00 77 mm[Hg] [facility] Systolic blood pressure 2022-08-17 18:44:00 114 mm[Hg] [facility] Diastolic blood pressure 2022-08-17 18:44:00 80 mm[Hg] [facility] Heart rate 2022-08-17 18:44:00 77 /min [facility] Body temperature 2022-08-17 18:44:00 36.83 Gi [facility] Respiratory rate 2022-08-17 18:44:00 17 /min [facility] Body height 2022-08-17 18:44:00 165.1 cm [facility] Body weight 2022-08-17 18:44:00 56.201 kg [facility] BMI 2022-08-17 18:44:00 20.62 kg/m2 [facility] Oxygen saturation in Arterial blood by Pulse oximetry 2022-08-17 18:44:00 96 /min [facility] Systolic blood pressure 2022-05-20 18:33:00 108 mm[Hg] [facility] Diastolic blood pressure 2022-05-20 18:33:00 74 mm[Hg] [facility] Heart rate 2022-05-20 18:33:00 61 /min [facility] Body temperature 2022-05-20 18:33:00 37.11 Gi [facility] Respiratory rate 2022-05-20 18:33:00 18 /min [facility] Body height 2022-05-20 18:33:00 165.1 cm [facility] Body weight 2022-05-20 18:33:00 54.432 kg [facility] BMI 2022-05-20 18:33:00 19.97 kg/m2 [facility] Oxygen saturation in Arterial blood by Pulse oximetry 2022-05-20 18:33:00 98 /min [facility] Systolic blood pressure 2022-05-12 14:13:00 115 mm[Hg] [facility] Diastolic blood pressure 2022-05-12 14:13:00 80 mm[Hg] [facility] Heart rate 2022-05-12 14:13:00 83 /min [facility] Body temperature 2022-05-12 14:13:00 36.83 Gi [facility] Respiratory rate 2022-05-12 14:13:00 18 /min [facility] Body height 2022-05-12 14:13:00 152.4 cm [facility] 2022-05-12 14:13:00 57.017 kg [facility] BMI 2022-05-12 14:13:00 24.55 kg/m2 [facility] [facility] Oxygen saturation in Arterial blood by Pulse oximetry 2022-05-12 14:13:00 98 /min [facility] height 2022-04-02 11:00:00 60 [in_i] Commo n [facility] weight 2022-04-02 11:00:00 125 [lb_av] Comm on [facility] bmi 2022-04-02 11:00:00 24.41 kg/m2 Comm on [facility] Systolic blood pressure 2022-02-03 13:07:00 117 mm[Hg] [facility] Diastolic blood pressure 2022-02-03 13:07:00 78 mm[Hg] [facility] Heart rate 2022-02-03 13:07:00 82 /min Unive [facility] Body height 2022-02-03 13:07:00 152.4 cm [facility] 2022-02-03 13:07:00 60.782 kg Univ [facility] BMI 2022-02-03 13:07:00 26.17 kg/m2 Univ [facility] Oxygen saturation in Arterial blood by Pulse oximetry 2022-02-03 13:07:00 94 /min [facility] height 2022-01-08 16:00:00 60 [in_i] Commo n [facility] weight 2022-01-08 16:00:00 132.4 [lb_av] Co mmon [facility] temperature 2022-01-08 16:00:00 97.9 [degF] Com [facility] bmi 2022-01-08 16:00:00 25.85 kg/m2 Comm on [facility] oximetry 2022-01-08 16:00:00 96 % Commo n [facility] respiratory rate 2022-01-08 16:00:00 16 /min Common [facility] blood pressure systolic 2022-01-08 16:00:00 115 mm[Hg] Common [facility] blood pressure diastolic 2022-01-08 16:00:00 75 mm[Hg] Common [facility] height 2022-01-05 08:00:00 60 [in_i] Commo n [facility] weight 2022-01-05 08:00:00 132.4 [lb_av] Co mmon [facility] temperature 2022-01-05 08:00:00 97.9 [degF] Com [facility] bmi 2022-01-05 08:00:00 25.85 kg/m2 Comm on [facility] oximetry 2022-01-05 08:00:00 96 % Commo n [facility] respiratory rate 2022-01-05 08:00:00 16 /min Common [facility] blood pressure systolic 2022-01-05 08:00:00 113 mm[Hg] [facility] blood pressure diastolic 2022-01-05 08:00:00 74 mm[Hg] Common [facility] height 2021-12-31 11:20:00 60 [in_i] Commo n [facility] weight 2021-12-31 11:20:00 133.2 [lb_av] Co mmon [facility] temperature 2021-12-31 11:20:00 97.9 [degF] Com mon [facility] bmi 2021-12-31 11:20:00 26.01 kg/m2 Comm on [facility] oximetry 2021-12-31 11:20:00 97 % Commo n [facility] respiratory rate 2021-12-31 11:20:00 16 /min Common [facility] blood pressure systolic 2021-12-31 11:20:00 105 mm[facility]Hg[facility] blood [facility] diastolic 2021-12-31 11:20:00 71 mm[Hg] [facility] height 2021-12-19 08:20:00 60 [in_i] Commo n [facility] weight 2021-12-19 08:20:00 132.4 [facility]lb[facility]av[facility] 2021-12-[facility] 08:20:00 97.2 [degF] Com [facility] bmi 2021-12-19 08:20:00 25.85 kg/m2 Comm on [facility] oximetry 2021-12-19 08:20:00 97 % Commo n [facility] respiratory rate 2021-12-19 08:20:00 16 /min Common [facility] blood pressure systolic 2021-12-19 08:20:00 114 mm[Hg] [facility] blood pressure diastolic 2021-12-19 08:20:00 70 mm[Hg] [facility] height 2021-12-09 08:20:00 60 [in_i] Commo n [facility] weight 2021-12-09 08:20:00 133.0 [lb_av] Co [facility] temperature 2021-12-09 08:20:00 97.9 [degF] Com mon [facility] bmi 2021-12-09 08:20:00 25.97 kg/m2 Comm on [facility] oximetry 2021-12-09 08:20:00 97 % Commo n [facility] respiratory rate 2021-12-09 08:20:00 16 /min [facility] blood pressure systolic 2021-12-09 08:20:00 136 mm[Hg] [facility] blood pressure diastolic 2021-12-09 08:20:00 74 mm[Hg] [facility] height 2021-12-03 11:20:00 60 [in_i] Commo n [facility] weight 2021-12-03 11:20:00 132.4 [lb_av] Co [facility] temperature 2021-12-03 11:20:00 97.7 [degF] Com [facility] bmi 2021-12-03 11:20:00 25.85 kg/m2 Comm on [facility] oximetry 2021-12-03 11:20:00 96 % Commo n [facility] respiratory rate 2021-12-03 11:20:00 16 /min [facility] blood pressure systolic 2021-12-03 11:20:00 106 mm[Hg] [facility] blood pressure diastolic 2021-12-03 11:20:00 77 mm[facility]Hg] [facility] height 2021-11-18 15:40:00 60 [in_i] Commo n [facility] weight 2021-11-18 15:40:00 131.6 [lb_av] Co on [facility] temperature 2021-11-18 15:40:00 97.9 [degF] Com [facility] bmi 2021-11-18 15:40:00 25.7 kg/m2 Commo n [facility] oximetry 2021-11-18 15:40:00 96 % Commo n [facility] respiratory rate 2021-11-18 15:40:00 16 /min Common [facility] blood pressure systolic 2021-11-18 15:40:00 128 mm[Hg] [facility] blood pressure diastolic 2021-11-18 15:40:00 72 mm[Hg] [facility] Procedures Procedure Date / Time Performed Performing Clinicia n Source POCT SARS-COV-2 ANTIGEN (BINAX NOW) 2023-11-08 20:05:00 Shila Salcedo [facility] POCT MOLECULAR FLU 2023-11-08 19:54:00 Unknown, Attend [facility] POCT MOLECULAR STREP 2023-11-08 19:52:00 Unknown, [facility]EF[facility] 2023-10-25 18:56:23 Docto r Unassigned, [place] [facility] REFERRAL- REQUEST/RESPONSE 2023-03-05 05:01:00 Doctor Unassigned, [place] [facility] POCT MOLECULAR FLU 2022-12-14 18:43:00 Unknown, Attend [facility] ASSIGNMENT OF BENEFITS 2022-12-14 18:20:36 Docto r Unassigned, [place] [facility] POCT SARS-COV-2 ANTIGEN (BINAX NOW) 2022-11-04 01:39:00 Shila Salcedo [facility] POCT MOLECULAR FLU 2022-11-04 01:17:00 Unknown, Attend [facility] POCT MOLECULAR STREP 2022-11-04 01:15:00 Unknown, Attniall sandra [facility] REFERRAL- REQUEST/RESPONSE 2022-08-12 05:01:00 Doctor Unassigned, [place] [facility] POCT SARS-COV-2 ANTIGEN (BINAX NOW) 2022-05-20 18:35:00 Manan Saleh [facility] POCT MOLECULAR STREP 2022-05-12 14:24:00 Lizz Shi [facility] EMG/NCV 2022-02-26 14:38:00 Mikie Maxwell [facility] REFERRAL- REQUEST/RESPONSE 2021-11-20 06:01:00 Doctor Unassigned, [place] [facility] Encounters Start Date/Time End Date/Time Encounter Type Admission Type Attending [facility] Facility Care Department Encounter ID Source 2023-02-24 09:37:00 Outpatient Marybel Lindsey STLMLC [id number] [facility] 2023-02-22 14:19:01 Outpatient Marybel Lindsey STLMLC [id number] [facility] 2022-11-26 10:02:01 Outpatient Marybel Lindsey STNEO STLMLC [id number] [facility] 2022-09-29 08:17:02 Outpatient Marybel Lindsey STNEO STLMLC [id number] [facility] 2022-03-25 09:14:06 Outpatient Marybel Lindsey STMICHAELLC STLMLC [id number] [facility] 2022-02-17 12:19:02 Outpatient Marybel Lindsey STMICHAELLC STLMLC [id number] [facility] 2022-02-12 13:33:03 Outpatient Marybel Lindsey STMICHAELLC STLMLC [id number] [facility] 2022-01-28 09:46:06 Outpatient Marybel Lindsey STMICHAELLC STLMLC [id number] [facility] 2022-01-21 08:48:03 Outpatient Marybel Lindsey STMICHAELLC STLMLC [id number] [facility] 2022-01-16 09:25:03 Outpatient Marybel Lindsey STMICHAELLC STLMLC [id number] [facility] 2021-12-03 14:34:27 Outpatient LindseyMarybel sousa STMICHAELLC STLMLC [id number] [facility] 2021-12-03 14:34:00 Outpatient STLMLC STLMLC [id number] [facility] 2023-12-07 16:40:00 2023-12-07 16:40:00 Outpatient R [facility] [id number] [facility] 2023-11-15 09:00:00 2023-11-15 09:21:46 Outpatient R DELFINO MANAN [facility] [id number] [facility] 2023-11-15 09:00:00 2023-11-15 09:21:46 Urgent Care Manan Saleh Unknown, Attending [facility] 1.2.840.114 350.1.13.10 4.2.7.2.686 [id number] [facility] 2023-11-08 13:40:00 2023-11-08 14:31:06 Outpatient R SALCEDO, SHILA [facility] [id number] [facility] 2023-11-08 13:40:00 2023-11-08 14:31:06 Urgent Care Zainab Salcedoaramistiffany Unknown, Attending [facility] 1.2.840.114 350.1.13.10 4.2.7.2.686 [id number] [facility] 2023-11-08 13:40:00 2023-11-08 13:40:00 Outpatient R [facility] [id number] [facility] 2023-10-27 00:00:00 2023-10-27 00:00:00 (TEL) STLMLC STLMLC [id number] [facility] 2023-10-27 00:00:00 2023-10-27 00:00:00 (TEL) STLMLC STLMLC [id number] [facility] 2023-10-25 13:15:00 2023-10-25 13:30:00 Office Visit Anuj Guillen [facility] 1..840.114 350.1.13.10 4.2.7.2.686 [id number] [facility] 2023-10-25 13:15:00 2023-10-25 13:15:00 Outpatient ANUJ HOPKINS [facility] [id number] [facility] 2023-10-25 00:00:00 2023-10-25 00:00:00 Orders Only Doctor Unassigned, [place] [facility] 1..840.114 350.1.13.10 4.2.7.2.686 [id number] [facility] 2023-10-14 00:00:00 2023-10-14 00:00:00 (TEL) STLMLC STLMLC [id number] [facility] 2023-10-14 00:00:00 2023-10-14 00:00:00 (TEL) STLMLC STLMLC [id number] [facility] 2023-10-11 00:00:00 2023-10-11 00:00:00 OFFICE VISIT ESTAB PT LEVEL 4 STLMLC STLMLC [id number] [facility] 2023-09-29 00:00:00 2023-09-29 00:00:00 (TEL) STLMLC STLMLC [id number] [facility] 2023-09-13 13:30:00 2023-09-13 13:30:00 Outpatient ANUJ HOPKINS [facility] [id number] [facility] 2023-09-08 00:00:00 2023-09-08 00:00:00 [facility]patient [facility] [id number] [facility] 2023-09-03 00:00:00 2023-09-03 00:00:00 (TEL) STLMLC STLMLC [id number] [facility] 2023-08-27 00:00:00 2023-08-27 00:00:00 (TEL) STLMLC STLMLC [id number] [facility] 2023-06-18 00:00:00 2023-06-18 00:00:00 (TEL) STLMLC STLMLC [id number] [facility] 2023-05-03 00:00:00 2023-05-03 00:00:00 (TEL) STLMLC STLMLC [id number] [facility] 2023-04-09 00:00:00 2023-04-09 00:00:00 OFFICE VISIT ESTAB PT LEVEL 4 STLMLC STLMLC [id number] [facility] 2023-03-19 13:30:00 2023-03-19 13:45:00 Office Visit Anuj Guillen [facility] 1.2.840.114 350.1.13.10 4.2.7.2.686 [id number] [facility] 2023-03-19 13:30:00 2023-03-19 13:30:00 Outpatient R ANUJ GUILLEN [facility] [id number] [facility] 2023-03-05 00:00:00 2023-03-05 00:00:00 Orders Only Doctor Unassigned, [place] [facility] 1.2.840.114 350.1.13.10 4.2.7.2.686 [id number] [facility] 2023-03-04 00:00:00 2023-03-04 00:00:00 (TEL) STLMLC STLMLC [id number] [facility] 2023-03-01 00:00:00 2023-03-01 00:00:00 OFFICE VISIT ESTAB PT LEVEL 4 STLMLC STLMLC [id number] [facility] 2023-02-22 00:00:00 2023-02-22 00:00:00 (TEL) STLMLC STLMLC [id number] [facility] 2022-12-14 12:00:00 2022-12-14 12:20:00 Urgent Care Senthil Shila Unknown, Attending [facility] 1.2.840.114 350.1.13.10 4.2.7.2.686 [id number] [facility] 2022-12-14 12:00:00 2022-12-14 12:00:00 Outpatient SHILA HERNANDEZ [facility] [id number] [facility] 2022-12-14 00:00:00 2022-12-14 00:00:00 Orders Only Doctor Unassigned, [place] [facility] 1.2.840.114 350.1.13.10 4.2.7.2.686 [id number] [facility] 2022-12-14 00:00:00 2022-12-14 00:00:00 (TEL) STLMLC STLMLC [id number] [facility] 2022-12-09 00:00:00 2022-12-09 00:00:00 (TEL) STLMLC STLMLC [id number] [facility] 2022-11-30 00:00:00 2022-11-30 00:00:00 OFFICE VISIT ESTAB PT LEVEL 4 STLMLC STLMLC [id number] [facility] 2022-11-23 00:00:00 2022-11-23 00:00:00 (TEL) STLMLC STLMLC [id number] [facility] 2022-11-03 19:00:00 2022-11-03 19:20:00 Urgent Care SalcedoZainabejsusita Unknown, Attending [facility] 1.2.840.114 350.1.13.10 4.2.7.2.686 [id number] [facility] 2022-11-03 19:00:00 2022-11-03 19:00:00 Outpatient SHILA HERNANDEZ [facility] [id number] [facility] 2022-11-03 17:00:00 2022-11-03 17:00:00 Outpatient Liam GAINES, ATTENDING [facility] [id number] [facility] 2022-10-29 00:00:00 2022-10-29 00:00:00 (TEL) STLMLC STLMLC [id number] [facility] 2022-10-19 00:00:00 2022-10-19 00:00:00 (TEL) STLMLC STLMLC [id number] [facility] 2022-10-12 00:00:00 2022-10-12 00:00:00 (TEL) STLMLC STLMLC [id number] [facility] 2022-10-07 00:00:00 2022-10-07 00:00:00 (TEL) STLMLC STLMLC [id number] [facility] 2022-09-29 00:00:00 2022-09-29 00:00:00 OFFICE VISIT EST PT LEVEL 3 STLMLC STLMLC [id number] [facility] 2022-08-17 13:45:00 2022-08-17 14:00:00 Office Visit Anuj Guillen [facility] 1..840.114 350.1.13.10 4.2.7.2.686 [id number] [facility] 2022-08-17 13:45:00 2022-08-17 13:45:00 Outpatient ANUJ HOPKINS [facility] [id number] [facility] 2022-08-12 00:00:00 2022-08-12 00:00:00 Orders Only Doctor Unassigned, [place] [facility] 1..840.114 350.1.13.10 4.2.7.2.686 [id number] [facility] 2022-08-11 00:00:00 2022-08-11 00:00:00 (TEL) STLMLC STLMLC [id number] [facility] 2022-08-06 00:00:00 2022-08-06 00:00:00 Patient Secure Msg Doctor Unassigned, [place] [facility] 1.84.114 350.1.13.10 4.2.7.2.686 [id number] [facility] 2022-07-30 00:00:00 2022-07-30 00:00:00 Telephone Mikie Maxwell [facility] 1.84.114 350.1.13.10 4.2.7.2.686 [id number] [facility] 2022-07-30 00:00:00 2022-07-30 00:00:00 (TEL) STLMLC STLMLC [id number] [facility] 2022-05-22 00:00:00 2022-05-22 00:00:00 (TEL) STLC STLMLC [id number] [facility] 2022-05-20 13:20:00 2022-05-20 13:55:16 Outpatient R MANAN SALEH [facility] [id number] [facility] 2022-05-20 13:20:00 2022-05-20 13:55:16 Urgent Care Manan Saleh Rania [facility] 1.840.114 350.1.13.10 4.2.7.2.686 [id number] [facility] 2022-05-15 10:15:00 2022-05-15 10:30:00 Laboratory Only Only, Ang Db Test Manan Saleh [facility] 1..840.114 350.1.13.10 4.2.7.2.686 [id number] [facility] 2022-05-15 10:15:00 2022-05-15 10:13:12 Outpatient N MANAN SALEH [facility] [id number] [facility] 2022-05-13 00:00:00 2022-05-13 00:00:00 Telephone Brittney Templeton [facility] 1..840.114 350.1.13.10 4.2.7.2.686 [id number] [facility] 2022-05-12 09:20:00 2022-05-12 10:15:00 Outpatient R YURIDIA LIZZ [facility] [id number] [facility] 2022-05-12 09:20:00 2022-05-12 09:40:00 [facility] 1.2.840.114 350.1.13.10 4.2.7.2.686 [id number] [facility] 2022-04-02 00:00:00 2022-04-02 00:00:00 OFFICE VISIT ESTAB PT LEVEL 4 STLMLC STLMLC [id number] [facility] 2022-02-26 08:43:58 2022-02-26 23:59:00 [facility] [id number] [facility] 2022-02-26 08:43:58 2022-02-26 23:59:00 Hospital Encounter Gold [facility] [place] [place] [facility] 1.2.840.114 350.1.13.10 4.2.7.2.686 [id number] [facility] 2022-02-18 00:00:00 2022-02-18 00:00:00 (TEL) STLMLC STLMLC [id number] [facility] 2022-02-11 00:00:00 2022-02-11 00:00:00 (TEL) STLMLC STLMLC [id number] [facility] 2022-02-09 00:00:00 2022-02-09 00:00:00 Telephone Mikie Maxwell [facility] JEFF[facility] 1.2.840.114 350.1.13.10 4.2.7.2.686 [id number] [facility] 2022-02-03 08:00:00 2022-02-03 09:07:25 Outpatient R RENY MIKIE MIKIE MAXWELL [facility] [id number] [facility] 2022-02-03 08:00:00 2022-02-03 09:07:25 [facility] 1.2.840.114 350.1.13.10 4.2.7.2.686 [id number] [facility] 2022-01-26 00:00:00 2022-01-26 00:00:00 (TEL) STLMLC STLMLC [id number] [facility] 2022-01-22 00:00:00 2022-01-22 00:00:00 OFFICE VISIT ESTAB PT LEVEL 1 STLMLC STLMLC [id number] [facility] 2022-01-21 00:00:00 2022-01-21 00:00:00 Orders Only Doctor Unassigned, [place] [facility] 1.2.840.114 350.1.13.10 4.2.7.2.686 [id number] [facility] 2022-01-20 00:00:00 2022-01-20 00:00:00 OFFICE VISIT EST PT LEVEL 3 STLMLC STLMLC [id number] [facility] 2022-01-19 00:00:00 2022-01-19 00:00:00 (TEL) STLMLC STLMLC [id number] [facility] 2022-01-15 00:00:00 2022-01-15 00:00:00 (TEL) STLMLC STLMLC [id number] [facility] 2022-01-14 00:00:00 2022-01-14 00:00:00 OFFICE VISIT EST PT LEVEL 3 STLMLC STLMLC [id number] [facility] 2022-01-08 00:00:00 2022-01-08 00:00:00 OFFICE VISIT ESTAB PT LEVEL 1 STLMLC STLMLC [id number] [facility] 2022-01-05 00:00:00 2022-01-05 00:00:00 OFFICE VISIT EST PT LEVEL 3 STLMLC STLMLC [id number] [facility] 2021-12-31 00:00:00 2021-12-31 00:00:00 OFFICE VISIT ESTAB PT LEVEL 4 STLMLC STLMLC [id number] [facility] 2021-12-25 09:15:00 2021-12-25 09:15:00 Outpatient R AKINSIROBBIE TROTTER [facility] [id number] [facility] 2021-12-25 09:15:00 2021-12-25 09:15:00 Outpatient R AKINSIPE, ROBBIE [facility] [id number] [facility] 2021-12-25 09:15:00 2021-12-25 09:15:00 Outpatient R AKINSIPE, ROBBIE [facility] [id number] [facility] 2021-12-24 00:00:00 2021-12-24 00:00:00 (TEL) STLMLC STLMLC [id number] [facility] 2021-12-19 00:00:00 2021-12-19 00:00:00 PREV VISIT EST AGE 40-64 STLMLC STLMLC [id number] [facility] 2021-12-09 00:00:00 2021-12-09 00:00:00 OFFICE VISIT ESTAB PT LEVEL 4 STLMLC STLMLC [id number] [facility] 2021-12-03 00:00:00 2021-12-03 00:00:00 (TEL) STLMLC STLMLC [id number] [facility] 2021-12-03 00:00:00 2021-12-03 00:00:00 (TEL) STLMLC STLMLC [id number] [facility] 2021-12-03 00:00:00 2021-12-03 00:00:00 OFFICE VISIT ESTAB PT LEVEL 4 STLMLC STLMLC [id number] [facility] 2021-11-25 00:00:00 2021-11-25 00:00:00 (TEL) STLMLC STLMLC [id number] [facility] 2021-11-20 00:00:00 2021-11-20 00:00:00 Orders Only Doctor Unassigned, [place] [facility] 1.2.840.114 350.1.13.10 4.2.7.2.686 [id number] [facility] 2021-11-18 00:00:00 2021-11-18 00:00:00 OFFICE VISIT NEW PT LEVEL 4 STLMLC STLMLC [id number] [facility] 2021-11-09 11:40:00 2021-11-09 12:52:07 Outpatient BEV RENNER [facility] [id number] [facility] Results Test Description Test Time Test Comments Results Result Co mments Source [facility] Molecular [id number] 20:06:32* Test Item Value Reference Range Interpretation Comme nts POCT Molecular FluA (test co de = 55032-5) Negative Negative POCT Molecular FluB (test co de = 63870-5) Negative Negative Lab Interpretation (test cod e = 25209-7) Normal [facility] MOLECULAR [id number] 20:00:13* Test Item Value Reference Range Interpretation Comme nts POCT Molecular Strep (test c ode = 86690-1) Negative Negative Lab Interpretation (test cod e = 17709-4) [facility] [id number] 00:00:00* Test Item Value Reference Range Interpretation Comme nts NUCLEATED RBCS (test code = 63968-8) TEST NOT PERFORMED /100 WBC'S See_Comment [Automated message] The system which generated this result transmitted reference range: 0.0 /100 WBC'S. The reference range was not used to interpret this result as normal/abnormal. ABSOLUTE EOSINOPHILS (test code = 68352-0) TEST NOT PERFORMED K/UL See_Comment [Automated message] The system which generated this result transmitted reference range: 0.00-0.50 K/UL. The reference range was not used to interpret this result as normal/abnormal. ABSOLUTE LYMPHOCYTES (test code = 29641-9) TEST NOT PERFORMED K/UL See_Comment [Automated message] The system which generated this result transmitted reference range: 1.00-4.00 K/UL. The reference range was not used to interpret this result as normal/abnormal. ABSOLUTE MONOCYTES (test code = 50304-0) TEST NOT PERFORMED K/UL See_Comment [Automated message] The system which generated this result transmitted reference range: 0.20-1.00 K/UL. The reference range was not used to interpret this result as normal/abnormal. ABSOLUTE NEUTROPHILS (test code = 53002-6) TEST NOT PERFORMED K/UL See_Comment [Automated message] The system which generated this result transmitted reference range: 1.50-7.50 K/UL. The reference range was not used to interpret this result as normal/abnormal. BANDS (test code = 45634-5) TEST NOT PERFORMED % See_Comment [Automated message] The system which generated this result transmitted reference range: 0.0-8.0 %. The reference range was not used to interpret this result as normal/abnormal. BASOPHILS (test code = 03916-2) TEST NOT PERFORMED % BLASTS (test code = 71560-0) TEST NOT PERFORMED % See_Comment [Automated message] The system which generated this result transmitted reference range: 0.0 %. The reference range was not used to interpret this result as normal/abnormal. COMMENTS (test code = 60367-8) TEST NOT PERFORMED EOSINOPHILS (test code = 04782-8) TEST NOT PERFORMED % HEMATOCRIT (test code = 54019-2) TEST NOT PERFORMED % See_Comment [Automated message] The system which generated this result transmitted reference range: 34.0-45.0 %. The reference range was not used to interpret this result as normal/abnormal. HEMOGLOBIN (test code = 718-7) TEST NOT PERFORMED G/DL See_Comment [Automated message] The system which generated this result transmitted reference range: 11.5-15.5 G/DL. The reference range was not used to interpret this result as normal/abnormal. LYMPHOCYTES (test code = 20536-1) TEST NOT PERFORMED % MCH (test code = 36665-3) TEST NOT PERFORMED PG See_Comment [Automated message] The system which generated this result transmitted reference range: 25.0-33.0 PG. The reference range was not used to interpret this result as normal/abnormal. MCHC (test code = 97933-9) TEST NOT PERFORMED G/DL See_Comment [Automated message] The system which generated this result transmitted reference range: 31.0-36.0 G/DL. The reference range was not used to interpret this result as normal/abnormal. MCV (test code = 32951-5) TEST NOT PERFORMED fL See_Comment [Automated message] The system which generated this result transmitted reference range: 80.0-99.0 fL. The reference range was not used to interpret this result as normal/abnormal. METAMYELOCYTES (test code = 02996-0) TEST NOT PERFORMED % See_Comment [Automated message] The system which generated this result transmitted reference range: 0.0 %. The reference range was not used to interpret this result as normal/abnormal. MONOCYTES (test code = 38114-7) TEST NOT PERFORMED % MYELOCYTES (test code = 40970-4) TEST NOT PERFORMED % See_Comment [Automated message] The system which generated this result transmitted reference range: 0.0 %. The reference range was not used to interpret this result as normal/abnormal. NEUTROPHILS (test code = 39695-4) TEST NOT PERFORMED % PLATELET COUNT (test code = 66820-8) TEST NOT PERFORMED K/UL See_Comment [Automated message] The system which generated this result transmitted reference range: 130-400 K/UL. The reference range was not used to interpret this result as normal/abnormal. PROMYELOCYTES (test code = 60177-8) TEST NOT PERFORMED % See_Comment [Automated message] The system which generated this result transmitted reference range: 0.0 %. The reference range was not used to interpret this result as normal/abnormal. RBC (test code = 57851-6) TEST NOT PERFORMED M/UL See_Comment [Automated message] The system which generated this result transmitted reference range: 3.80-5.40 M/UL. The reference range was not used to interpret this result as normal/abnormal. RDW (test code = 64238-8) TEST NOT PERFORMED % See_Comment [Automated message] The system which generated this result transmitted reference range: 11.5-15.0 %. The reference range was not used to interpret this result as normal/abnormal. WBC (test code = 25804-0) TEST NOT PERFORMED K/UL See_Comment [Automated message] The system which generated this result transmitted reference range: 3.5-11.0 K/UL. The reference range was not used to interpret this result as normal/abnormal. CULTURE, [id number] 00:00:00* Test Item Value Reference [facility] Interpretation [facility], URINE (test code = 630-4) SPECIMEN NUMBER: [id number] A TSH REFLEX TO FREE [id number] 00:00:00* Test Item Value Reference Range Interpretation [facility] TSH REFLEX TO FREE T4 (test code = 15641-6) TEST NOT PERFORMED UIU/ML See_Comment [Automated message] The system which generated this result transmitted reference range: 0.400-4.100 UIU/ML. The reference range was not used to interpret this result as normal/abnormal. LIPID [id number] 00:00:00* Test Item Value Reference Range Interpretation Comme [facility] CALC LDL CHOL (test code = 60080-6) TEST NOT PERFORMED MG/DL See_Comment [Automated message] The system which generated this result transmitted reference range: <100 MG/DL. The reference range was not used to interpret this result as normal/abnormal. CHOLESTEROL (test code = 2093-3) TEST NOT PERFORMED MG/DL See_Comment [Automated message] The system which generated this result transmitted reference range: <200 MG/DL. The reference range was not used to interpret this result as normal/abnormal. HDL CHOLESTEROL (test code = 2085-9) TEST NOT PERFORMED MG/DL See_Comment [Automated message] The system which generated this result transmitted reference range: >39 MG/DL. The reference range was not used to interpret this result as normal/abnormal. RISK RATIO LDL/HDL (test code = 88548-5) TEST NOT PERFORMED RATIO See_Comment [Automated message] The system which generated this result transmitted reference range: <3.22 RATIO. The reference range was not used to interpret this result as normal/abnormal. TRIGLYCERIDES (test code = 2571-8) TEST NOT PERFORMED MG/DL See_Comment [Automated message] The system which generated this result transmitted reference range: <150 MG/DL. The reference range was not used to interpret this result as normal/abnormal. TSH + FREE T4 [id number] 00:00:00* Test Item Value Reference Range Interpretation Comme nts FREE T4 (THYROXINE) (test code = 3024-7) TEST NOT PERFORMED NG/DL See_Comment [Automated message] The system which generated this result transmitted reference range: 0.80-1.90 NG/DL. The reference range was not used to interpret this result as normal/abnormal. TSH, THIRD GENERATION (test code = 83382-0) TEST NOT PERFORMED UIU/ML See_Comment [Automated message] The system which generated this result transmitted reference range: 0.400-4.100 UIU/ML. The reference range was not used to interpret this result as normal/abnormal. COMPREHENSIVE METABOLIC [id number] 00:00:00* Test Item Value Reference Range Interpretation Comme nts ALBUMIN (test code = 1751-7) TEST NOT PERFORMED G/DL See_Comment [Automated message] The system which generated this result transmitted reference range: 3.5-5.2 G/DL. The reference range was not used to interpret this result as normal/abnormal. ALKALINE PHOSPHATASE (test code = 6768-6) TEST NOT PERFORMED U/L See_Comment [Automated message] The system which generated this result transmitted reference range: 40-132 U/L. The reference range was not used to interpret this result as normal/abnormal. BILIRUBIN, TOTAL (test code = 1975-2) TEST NOT PERFORMED MG/DL See_Comment [Automated message] The system which generated this result transmitted reference range: <=1.2 MG/DL. The reference range was not used to interpret this result as normal/abnormal. BUN (test code = 3094-0) TEST NOT PERFORMED MG/DL See_Comment [Automated message] The system which generated this result transmitted reference range: 6-20 MG/DL. The reference range was not used to interpret this result as normal/abnormal. CALCIUM (test code = 68129-2) TEST NOT PERFORMED MG/DL See_Comment [Automated message] The system which generated this result transmitted reference range: 8.5-10.5 MG/DL. The reference range was not used to interpret this result as normal/abnormal. CALC A/G RATIO (test code = 1759-0) TEST NOT PERFORMED RATIO See_Comment [Automated message] The system which generated this result transmitted reference range: 1.0-2.6 RATIO. The reference range was not used to interpret this result as normal/abnormal. CALC BUN/CREAT (test code = 3097-3) TEST NOT PERFORMED RATIO See_Comment [Automated message] The system which generated this result transmitted reference range: 6-28 RATIO. The reference range was not used to interpret this result as normal/abnormal. CALC GLOBULIN (test code = 42885-1) TEST NOT PERFORMED G/DL See_Comment [Automated message] The system which generated this result transmitted reference range: 1.9-3.7 G/DL. The reference range was not used to interpret this result as normal/abnormal. CARBON DIOXIDE (test code = 1963-8) TEST NOT PERFORMED MEQ/L See_Comment [Automated message] The system which generated this result transmitted reference range: 19-31 MEQ/L. The reference range was not used to interpret this result as normal/abnormal. CHLORIDE (test code = 2075-0) TEST NOT PERFORMED MEQ/L See_Comment [Automated message] The system which generated this result transmitted reference range: 95-107 MEQ/L. The reference range was not used to interpret this result as normal/abnormal. CREATININE (test code = 2160-0) TEST NOT PERFORMED MG/DL See_Comment [Automated message] The system which generated this result transmitted reference range: 0.60-1.30 MG/DL. The reference range was not used to interpret this result as normal/abnormal. eGFR (2020 CKD-EPI) (test code = 05076-3) TEST NOT PERFORMED ML/MIN/1.73 See_Comment [Automated message] The system which generated this result transmitted reference range: >60 ML/MIN/1.73. The reference range was not used to interpret this result as normal/abnormal. GLUCOSE (test code = 1558-6) TEST NOT PERFORMED MG/DL See_Comment [Automated message] The system which generated this result transmitted reference range: 70-99 MG/DL. The reference range was not used to interpret this result as normal/abnormal. POTASSIUM (test code = 2823-3) TEST NOT PERFORMED MEQ/L See_Comment [Automated message] The system which generated this result transmitted reference range: 3.5-5.4 MEQ/L. The reference range was not used to interpret this result as normal/abnormal. PROTEIN, TOTAL (test code = 2885-2) TEST NOT PERFORMED G/DL See_Comment [Automated message] The system which generated this result transmitted reference range: 6.1-8.3 G/DL. The reference range was not used to interpret this result as normal/abnormal. AST (test code = 1920-8) TEST NOT PERFORMED U/L See_Comment [Automated message] The system which generated this result transmitted reference range: 9-40 U/L. The reference range was not used to interpret this result as normal/abnormal. ALT (test code = 1742-6) TEST NOT PERFORMED U/L See_Comment [Automated message] The system which generated this result transmitted reference range: 5-40 U/L. The reference range was not used to interpret this result as normal/abnormal. SODIUM (test code = 2951-2) TEST NOT PERFORMED MEQ/L See_Comment [Automated message] The system which generated this result transmitted reference range: 133-146 MEQ/L. The reference range was not used to interpret this result as normal/abnormal. CBC W/AUTO [id number] 00:00:00* Test Item Value Reference Range Interpretation Comme nts NUCLEATED RBCS (test code = 85001-0) 0.0 /100 WBC'S See_Comment [Automated messa ge] The system which generated this result transmitted reference range: 0.0 /100 WBC'S. The reference range was not used to interpret this result as normal/abnormal. ABSOLUTE EOSINOPHILS (test code = 40108-0) 0.15 K/UL See_Comment [Automated messa ge] The system which generated this result transmitted reference range: 0.00-0.50 K/UL. The reference range was not used to interpret this result as normal/abnormal. ABSOLUTE LYMPHOCYTES (test code = 67664-0) 1.32 K/UL See_Comment [Automated messa ge] The system which generated this result transmitted reference range: 1.00-4.00 K/UL. The reference range was not used to interpret this result as normal/abnormal. ABSOLUTE MONOCYTES (test code = 54730-7) 0.50 K/UL See_Comment [Automated messa ge] The system which generated this result transmitted reference range: 0.20-1.00 K/UL. The reference range was not used to interpret this result as normal/abnormal. ABSOLUTE NEUTROPHILS (test code = 51184-6) 3.22 K/UL See_Comment [Automated messa ge] The system which generated this result transmitted reference range: 1.50-7.50 K/UL. The reference range was not used to interpret this result as normal/abnormal. BASOPHILS (test code = 90523-9) 1.1 % EOSINOPHILS (test code = 43585-9) 2.9 % HEMATOCRIT (test code = 80121-2) 41.4 % See_Comment [Automated messa ge] The system which generated this result transmitted reference range: 34.0-45.0 %. The reference range was not used to interpret this result as normal/abnormal. HEMOGLOBIN (test code = 718-7) 14.3 G/DL See_Comment [Automated messa ge] The system which generated this result transmitted reference range: 11.5-15.5 G/DL. The reference range was not used to interpret this result as normal/abnormal. LYMPHOCYTES (test code = 53704-4) 25.1 % MCH (test code = 20758-6) 34.0 PG See_Comment H [Automated messa ge] The system which generated this result transmitted reference range: 25.0-33.0 PG. The reference range was not used to interpret this result as normal/abnormal. MCHC (test code = 60347-2) 34.5 G/DL See_Comment [Automated messa ge] The system which generated this result transmitted reference range: 31.0-36.0 G/DL. The reference range was not used to interpret this result as normal/abnormal. MCV (test code = 38554-2) 98.3 fL See_Comment [Automated messa ge] The system which generated this result transmitted reference range: 80.0-99.0 fL. The reference range was not used to interpret this result as normal/abnormal. MONOCYTES (test code = 81327-8) 9.5 % NEUTROPHILS (test code = 72290-7) 61.2 % PLATELET COUNT (test code = 18276-6) 236 K/UL See_Comment [Automated messa ge] The system which generated this result transmitted reference range: 130-400 K/UL. The reference range was not used to interpret this result as normal/abnormal. RBC (test code = 83771-0) 4.21 M/UL See_Comment [Automated messa ge] The system which generated this result transmitted reference range: 3.80-5.40 M/UL. The reference range was not used to interpret this result as normal/abnormal. RDW (test code = 42186-6) 12.4 % See_Comment [Automated messa ge] The system which generated this result transmitted reference range: 11.5-15.0 %. The reference range was not used to interpret this result as normal/abnormal. WBC (test code = 07231-7) 5.3 K/UL See_Comment [Automated messa ge] The system which generated this result transmitted reference range: 3.5-11.0 K/UL. The reference range was not used to interpret this result as normal/abnormal. TSH REFLEX TO FREE [id number] 00:00:00* Test Item Value Reference Range Interpretation Comme nts TSH REFLEX TO FREE T4 (test code = 59797-9) 3.030 UIU/ML See_Comment [Automated messa ge] The system which generated this result transmitted reference range: 0.400-4.100 UIU/ML. The reference range was not used to interpret this result as normal/abnormal. LIPID PANEL WITH REFLEX DIRECT [id number] 00:00:00* Test Item Value Reference Range Interpretation Comme nts CALC LDL CHOL (test code = 04454-7) 118 MG/DL See_Comment H [Automated messa ge] The system which generated this result transmitted reference range: <100 MG/DL. The reference range was not used to interpret this result as normal/abnormal. CHOLESTEROL (test code = 2093-3) 206 MG/DL See_Comment H [Automated messa ge] The system which generated this result transmitted reference range: <200 MG/DL. The reference range was not used to interpret this result as normal/abnormal. HDL CHOLESTEROL (test code = 2085-9) 72 MG/DL See_Comment [Automated messa ge] The system which generated this result transmitted reference range: >39 MG/DL. The reference range was not used to interpret this result as normal/abnormal. RISK RATIO LDL/HDL (test code = 82496-8) 1.64 RATIO See_Comment [Automated message] The system which generated this result transmitted reference range: <3.22 RATIO. The reference range was not used to interpret this result as normal/abnormal. TRIGLYCERIDES (test code = 2571-8) 66 MG/DL See_Comment [Automated messa ge] The system which generated this result transmitted reference range: <150 MG/DL. The reference range was not used to interpret this result as normal/abnormal. COMPREHENSIVE METABOLIC [id number] 00:00:00* Test Item Value Reference Range Interpretation Comme nts ALBUMIN (test code = 1751-7) 4.5 G/DL See_Comment [Automated [place]] The system which generated this result transmitted reference range: 3.5-5.2 G/DL. The reference range was not used to interpret this result as normal/abnormal. ALKALINE PHOSPHATASE (test code = 6768-6) 78 U/L See_Comment [Automated message] The system which generated this result transmitted reference range: 40-132 U/L. The reference range was not used to interpret this result as normal/abnormal. BILIRUBIN, TOTAL (test code = 1975-2) 0.3 MG/DL See_Comment [Automated message] The system which generated this result transmitted reference range: <=1.2 MG/DL. The reference range was not used to interpret this result as normal/abnormal. BUN (test code = 3094-0) 16 MG/DL See_Comment [Automated [place]] The system which generated this result transmitted reference range: 6-20 MG/DL. The reference range was not used to interpret this result as normal/abnormal. CALCIUM (test code = 92052-4) 9.2 MG/DL See_Comment [Automated messa ge] The system which generated this result transmitted reference range: 8.5-10.5 MG/DL. The reference range was not used to interpret this result as normal/abnormal. CALC A/G RATIO (test code = 1759-0) 2.4 RATIO See_Comment [Automated [place]] The system which generated this result transmitted reference range: 1.0-2.6 RATIO. The reference range was not used to interpret this result as normal/abnormal. CALC BUN/CREAT (test code = 3097-3) 19 RATIO See_Comment [Automated messa ge] The system which generated this result transmitted reference range: 6-28 RATIO. The reference range was not used to interpret this result as normal/abnormal. CALC GLOBULIN (test code = 43381-6) 1.9 G/DL See_Comment [Automated messa ge] The system which generated this result transmitted reference range: 1.9-3.7 G/DL. The reference range was not used to interpret this result as normal/abnormal. CARBON DIOXIDE (test code = 1963-8) 29 MEQ/L See_Comment [Automated messa ge] The system which generated this result transmitted reference range: 19-31 MEQ/L. The reference range was not used to interpret this result as normal/abnormal. CHLORIDE (test code = 2075-0) 104 MEQ/L See_Comment [Automated messa ge] The system which generated this result transmitted reference range: 95-107 MEQ/L. The reference range was not used to interpret this result as normal/abnormal. CREATININE (test code = 2160-0) 0.83 MG/DL See_Comment [Automated messa ge] The system which generated this result transmitted reference range: 0.60-1.30 MG/DL. The reference range was not used to interpret this result as normal/abnormal. eGFR (2020 CKD-EPI) (test code = 20492-1) 85 ML/MIN/1.73 See_Comment [Automated messa ge] The system which generated this result transmitted reference range: >60 ML/MIN/1.73. The reference range was not used to interpret this result as normal/abnormal. GLUCOSE (test code = 1558-6) 76 MG/DL See_Comment [Automated messa ge] The system which generated this result transmitted reference range: 70-99 MG/DL. The reference range was not used to interpret this result as normal/abnormal. POTASSIUM (test code = 2823-3) 4.4 MEQ/L See_Comment [Automated messa ge] The system which generated this result transmitted reference range: 3.5-5.4 MEQ/L. The reference range was not used to interpret this result as normal/abnormal. PROTEIN, TOTAL (test code = 2885-2) 6.4 G/DL See_Comment [Automated messa ge] The system which generated this result transmitted reference range: 6.1-8.3 G/DL. The reference range was not used to interpret this result as normal/abnormal. AST (test code = 1920-8) 23 U/L See_Comment [Automated messa ge] The system which generated this result transmitted reference range: 9-40 U/L. The reference range was not used to interpret this result as normal/abnormal. ALT (test code = 1742-6) 35 U/L See_Comment [Automated messa ge] The system which generated this result transmitted reference range: 5-40 U/L. The reference range was not used to interpret this result as normal/abnormal. SODIUM (test code = 2951-2) 142 MEQ/L See_Comment [Automated messa ge] The system which generated this result transmitted reference range: 133-146 MEQ/L. The reference range was not used to interpret this result as normal/abnormal. CBC W/AUTO [id number] 00:00:00* Test Item Value Reference Range Interpretation Comme nts NUCLEATED RBCS (test code = 41080-2) 0.0 /100 WBC'S See_Comment [Automated messa ge] The system which generated this result transmitted reference range: 0.0 /100 WBC'S. The reference range was not used to interpret this result as normal/abnormal. ABSOLUTE EOSINOPHILS (test code = 00986-3) 0.10 K/UL See_Comment [Automated messa ge] The system which generated this result transmitted reference range: 0.00-0.50 K/UL. The reference range was not used to interpret this result as normal/abnormal. ABSOLUTE LYMPHOCYTES (test code = 17274-8) 1.55 K/UL See_Comment [Automated messa ge] The system which generated this result transmitted reference range: 1.00-4.00 K/UL. The reference range was not used to interpret this result as normal/abnormal. ABSOLUTE MONOCYTES (test code = 72319-2) 0.62 K/UL See_Comment [Automated messa ge] The system which generated this result transmitted reference range: 0.2-3.8 K/UL. The reference range was not used to interpret this result as normal/abnormal. ABSOLUTE NEUTROPHILS (test code = 00578-0) 2.93 K/UL See_Comment [Automated messa ge] The system which generated this result transmitted reference range: 1.50-7.50 K/UL. The reference range was not used to interpret this result as normal/abnormal. BASOPHILS (test code = 25002-2) 1.0 % EOSINOPHILS (test code = 67674-1) 1.9 % HEMATOCRIT (test code = 73944-1) 42.1 % See_Comment [Automated messa ge] The system which generated this result transmitted reference range: 34.0-45.0 %. The reference range was not used to interpret this result as normal/abnormal. HEMOGLOBIN (test code = 718-7) 14.7 G/DL See_Comment [Automated messa ge] The system which generated this result transmitted reference range: 11.5-15.5 G/DL. The reference range was not used to interpret this result as normal/abnormal. LYMPHOCYTES (test code = 49845-1) 29.5 % MCH (test code = 63428-1) 35.7 PG See_Comment H [Automated messa ge] The system which generated this result transmitted reference range: 25.0-33.0 PG. The reference range was not used to interpret this result as normal/abnormal. MCHC (test code = 16938-6) 34.9 G/DL See_Comment [Automated messa ge] The system which generated this result transmitted reference range: 31.0-36.0 G/DL. The reference range was not used to interpret this result as normal/abnormal. MCV (test code = 13825-8) 102.2 fL See_Comment H [Automated messa ge] The system which generated this result transmitted reference range: 80.0-99.0 fL. The reference range was not used to interpret this result as normal/abnormal. MONOCYTES (test code = 48631-3) 11.8 % NEUTROPHILS (test code = 19996-0) 55.6 % PLATELET COUNT (test code = 12150-8) 226 K/UL See_Comment [Automated messa ge] The system which generated this result transmitted reference range: 130-400 K/UL. The reference range was not used to interpret this result as normal/abnormal. RBC (test code = 33746-4) 4.12 M/UL See_Comment [Automated messa ge] The system which generated this result transmitted reference range: 3.80-5.40 M/UL. The reference range was not used to interpret this result as normal/abnormal. RDW (test code = 01712-5) 13.1 % See_Comment [Automated messa ge] The system which generated this result transmitted reference range: 11.5-15.0 %. The reference range was not used to interpret this result as normal/abnormal. WBC (test code = 34810-4) 5.3 K/UL See_Comment [Automated messa ge] The system which generated this result transmitted reference range: 3.5-11.0 K/UL. The reference range was not used to interpret this result as normal/abnormal. HEMOGLOBIN [id number] 00:00:00* Test Item Value Reference Range Interpretation [facility] HEMO[facility] A1c (test code = 4548-4) 5.2 % See_Comment [Automated messa ge] The system which generated this result transmitted reference range: 4.2-5.6 %. The reference range was not used to interpret this result as normal/abnormal. TSH REFLEX TO FREE [id number] 00:00:00* Test Item Value Reference Range Interpretation [facility] TSH REFLEX TO FREE T4 (test code = 17142-0) 2.020 UIU/ML See_Comment [Automated messa ge] The system which generated this result transmitted reference range: 0.400-4.100 UIU/ML. The reference range was not used to interpret this result as normal/abnormal. LIPID [id number] 00:00:00* Test Item Value Reference Range Interpretation Comme [facility] [facility] CALC LDL CHOL (test code = 26343-7) 110 MG/DL See_Comment H [Automated messa ge] The system which generated this result transmitted reference range: <100 MG/DL. The reference range was not used to interpret this result as normal/abnormal. CHOLESTEROL (test code = 2093-3) 205 MG/DL See_Comment H [Automated messa ge] The system which generated this result transmitted reference range: <200 MG/DL. The reference range was not used to interpret this result as normal/abnormal. HDL CHOLESTEROL (test code = 2085-9) 81 MG/DL See_Comment [Automated messa ge] The system which generated this result transmitted reference range: >39 MG/DL. The reference range was not used to interpret this result as normal/abnormal. RISK RATIO LDL/HDL (test code = 69592-0) 1.36 RATIO See_Comment [Automated message] The system which generated this result transmitted reference range: <3.22 RATIO. The reference range was not used to interpret this result as normal/abnormal. TRIGLYCERIDES (test code = 2571-8) 54 MG/DL See_Comment [Automated messa ge] The system which generated this result transmitted reference range: <150 MG/DL. The reference range was not used to interpret this result as normal/abnormal. COMPREHENSIVE METABOLIC [id number] 00:00:00* Test Item Value Reference Range Interpretation Comme nts ALBUMIN (test code = 1751-7) 4.4 G/DL See_Comment [Automated messa ge] The system which generated this result transmitted reference range: 3.5-5.2 G/DL. The reference range was not used to interpret this result as normal/abnormal. ALKALINE PHOSPHATASE (test code = 6768-6) 71 U/L See_Comment [Automated message] The system which generated this result transmitted reference range: 40-132 U/L. The reference range was not used to interpret this result as normal/abnormal. BILIRUBIN, TOTAL (test code = 1975-2) 0.4 MG/DL See_Comment [Automated message] The system which generated this result transmitted reference range: <=1.2 MG/DL. The reference range was not used to interpret this result as normal/abnormal. BUN (test code = 3094-0) 15 MG/DL See_Comment [Automated messa ge] The system which generated this result transmitted reference range: 6-20 MG/DL. The reference range was not used to interpret this result as normal/abnormal. CALCIUM (test code = 61621-8) 9.4 MG/DL See_Comment [Automated messa ge] The system which generated this result transmitted reference range: 8.5-10.5 MG/DL. The reference range was not used to interpret this result as normal/abnormal. CALC A/G RATIO (test code = 1759-0) 2.3 RATIO See_Comment [Automated messa ge] The system which generated this result transmitted reference range: 1.0-2.6 RATIO. The reference range was not used to interpret this result as normal/abnormal. CALC BUN/CREAT (test code = 3097-3) 17 RATIO See_Comment [Automated messa ge] The system which generated this result transmitted reference range: 6-28 RATIO. The reference range was not used to interpret this result as normal/abnormal. CALC GLOBULIN (test code = 30945-6) 1.9 G/DL See_Comment [Automated messa ge] The system which generated this result transmitted reference range: 1.9-3.7 G/DL. The reference range was not used to interpret this result as normal/abnormal. CARBON DIOXIDE (test code = 1963-8) 31 MEQ/L See_Comment [Automated messa ge] The system which generated this result transmitted reference range: 19-31 MEQ/L. The reference range was not used to interpret this result as normal/abnormal. CHLORIDE (test code = 2075-0) 105 MEQ/L See_Comment [Automated messa ge] The system which generated this result transmitted reference range: 95-107 MEQ/L. The reference range was not used to interpret this result as normal/abnormal. CREATININE (test code = 2160-0) 0.87 MG/DL See_Comment [Automated messa ge] The system which generated this result transmitted reference range: 0.60-1.30 MG/DL. The reference range was not used to interpret this result as normal/abnormal. eGFR (2020 CKD-EPI) (test code = 13098-6) 80 ML/MIN/1.73 See_Comment [Automated messa ge] The system which generated this result transmitted reference range: >60 ML/MIN/1.73. The reference range was not used to interpret this result as normal/abnormal. GLUCOSE (test code = 1558-6) 94 MG/DL See_Comment [Automated messa ge] The system which generated this result transmitted reference range: 70-99 MG/DL. The reference range was not used to interpret this result as normal/abnormal. POTASSIUM (test code = 2823-3) 4.5 MEQ/L See_Comment [Automated messa ge] The system which generated this result transmitted reference range: 3.5-5.4 MEQ/L. The reference range was not used to interpret this result as normal/abnormal. PROTEIN, TOTAL (test code = 2885-2) 6.3 G/DL See_Comment [Automated messa ge] The system which generated this result transmitted reference range: 6.1-8.3 G/DL. The reference range was not used to interpret this result as normal/abnormal. AST (test code = 1920-8) 22 U/L See_Comment [Automated messa ge] The system which generated this result transmitted reference range: 9-40 U/L. The reference range was not used to interpret this result as normal/abnormal. ALT (test code = 1742-6) 21 U/L See_Comment [Automated messa ge] The system which generated this result transmitted reference range: 5-40 U/L. The reference range was not used to interpret this result as normal/abnormal. SODIUM (test code = 2951-2) 144 MEQ/L See_Comment [Automated messa ge] The system which generated this result transmitted reference range: 133-146 MEQ/L. The reference range was not used to interpret this result as normal/abnormal. CBC W/AUTO [id number] 00:00:00* Test Item Value Reference Range Interpretation Comme nts NUCLEATED RBCS (test code = 57786-8) 0.0 /100 WBC'S See_Comment [Automated messa ge] The system which generated this result transmitted reference range: 0.0 /100 WBC'S. The reference range was not used to interpret this result as normal/abnormal. ABSOLUTE EOSINOPHILS (test code = 96366-3) 0.08 K/UL See_Comment [Automated messa ge] The system which generated this result transmitted reference range: 0.00-0.50 K/UL. The reference range was not used to interpret this result as normal/abnormal. ABSOLUTE LYMPHOCYTES (test code = 43735-8) 1.96 K/UL See_Comment [Automated messa ge] The system which generated this result transmitted reference range: 1.00-4.00 K/UL. The reference range was not used to interpret this result as normal/abnormal. ABSOLUTE MONOCYTES (test code = 84798-9) 0.60 K/UL See_Comment [Automated messa ge] The system which generated this result transmitted reference range: 0.20-1.00 K/UL. The reference range was not used to interpret this result as normal/abnormal. ABSOLUTE NEUTROPHILS (test code = 06228-7) 3.88 K/UL See_Comment [Automated messa ge] The system which generated this result transmitted reference range: 1.50-7.50 K/UL. The reference range was not used to interpret this result as normal/abnormal. BASOPHILS (test code = 45777-7) 0.8 % EOSINOPHILS (test code = 94862-9) 1.2 % HEMATOCRIT (test code = 60951-8) 41.1 % See_Comment [Automated messa ge] The system which generated this result transmitted reference range: 34.0-45.0 %. The reference range was not used to interpret this result as normal/abnormal. HEMOGLOBIN (test code = 718-7) 14.1 G/DL See_Comment [Automated messa ge] The system which generated this result transmitted reference range: 11.5-15.5 G/DL. The reference range was not used to interpret this result as normal/abnormal. LYMPHOCYTES (test code = 82665-7) 29.7 % MCH (test code = 05877-2) 35.1 PG See_Comment H [Automated messa ge] The system which generated this result transmitted reference range: 25.0-33.0 PG. The reference range was not used to interpret this result as normal/abnormal. MCHC (test code = 78999-4) 34.3 G/DL See_Comment [Automated messa ge] The system which generated this result transmitted reference range: 31.0-36.0 G/DL. The reference range was not used to interpret this result as normal/abnormal. MCV (test code = 06467-5) 102.2 fL See_Comment H [Automated messa ge] The system which generated this result transmitted reference range: 80.0-99.0 fL. The reference range was not used to interpret this result as normal/abnormal. MONOCYTES (test code = 29513-9) 9.1 % NEUTROPHILS (test code = 89767-7) 58.7 % PLATELET COUNT (test code = 33485-8) 232 K/UL See_Comment [Automated messa ge] The system which generated this result transmitted reference range: 130-400 K/UL. The reference range was not used to interpret this result as normal/abnormal. RBC (test code = 11758-2) 4.02 M/UL See_Comment [Automated messa ge] The system which generated this result transmitted reference range: 3.80-5.40 M/UL. The reference range was not used to interpret this result as normal/abnormal. RDW (test code = 26850-8) 14.5 % See_Comment [Automated messa ge] The system which generated this result transmitted reference range: 11.5-15.0 %. The reference range was not used to interpret this result as normal/abnormal. WBC (test code = 66687-5) 6.6 K/UL See_Comment [Automated messa ge] The system which generated this result transmitted reference range: 3.5-11.0 K/UL. The reference range was not used to interpret this result as normal/abnormal. TSH REFLEX TO FREE [id number] 00:00:00* Test Item Value Reference Range Interpretation Comme nts TSH REFLEX TO FREE T4 (test code = 00972-1) 2.780 UIU/ML See_Comment [Automated messa ge] The system which generated this result transmitted reference range: 0.400-4.100 UIU/ML. The reference range was not used to interpret this result as normal/abnormal. LIPID [id number] 00:00:00* Test Item Value Reference Range Interpretation Comme nts CALC LDL CHOL (test code = 58682-0) 112 MG/DL See_Comment H [Automated messa ge] The system which generated this result transmitted reference range: <100 MG/DL. The reference range was not used to interpret this result as normal/abnormal. CHOLESTEROL (test code = 2093-3) 220 MG/DL See_Comment H [Automated messa ge] The system which generated this result transmitted reference range: <200 MG/DL. The reference range was not used to interpret this result as normal/abnormal. HDL CHOLESTEROL (test code = 2085-9) 85 MG/DL See_Comment [Automated messa ge] The system which generated this result transmitted reference range: >39 MG/DL. The reference range was not used to interpret this result as normal/abnormal. RISK RATIO LDL/HDL (test code = 19238-6) 1.32 RATIO See_Comment [Automated message] The system which generated this result transmitted reference range: <3.22 RATIO. The reference range was not used to interpret this result as normal/abnormal. TRIGLYCERIDES (test code = 2571-8) 115 MG/DL See_Comment [Automated messa ge] The system which generated this result transmitted reference range: <150 MG/DL. The reference range was not used to interpret this result as normal/abnormal. COMPREHENSIVE METABOLIC [id number] 00:00:00* Test Item Value Reference Range Interpretation Comme nts ALBUMIN (test code = 1751-7) 4.6 G/DL See_Comment [Automated messa ge] The system which generated this result transmitted reference range: 3.5-5.2 G/DL. The reference range was not used to interpret this result as normal/abnormal. ALKALINE PHOSPHATASE (test code = 6768-6) 68 U/L See_Comment [Automated message] The system which generated this result transmitted reference range: 40-132 U/L. The reference range was not used to interpret this result as normal/abnormal. BILIRUBIN, TOTAL (test code = 1975-2) 0.5 MG/DL See_Comment [Automated message] The system which generated this result transmitted reference range: <=1.2 MG/DL. The reference range was not used to interpret this result as normal/abnormal. BUN (test code = 3094-0) 18 MG/DL See_Comment [Automated messa ge] The system which generated this result transmitted reference range: 6-20 MG/DL. The reference range was not used to interpret this result as normal/abnormal. CALCIUM (test code = 95179-6) 9.3 MG/DL See_Comment [Automated messa ge] The system which generated this result transmitted reference range: 8.5-10.5 MG/DL. The reference range was not used to interpret this result as normal/abnormal. CALC A/G RATIO (test code = 1759-0) 2.3 RATIO See_Comment [Automated messa ge] The system which generated this result transmitted reference range: 1.0-2.6 RATIO. The reference range was not used to interpret this result as normal/abnormal. CALC BUN/CREAT (test code = 3097-3) 20 RATIO See_Comment [Automated messa ge] The system which generated this result transmitted reference range: 6-28 RATIO. The reference range was not used to interpret this result as normal/abnormal. CALC GLOBULIN (test code = 84129-2) 2.0 G/DL See_Comment [Automated messa ge] The system which generated this result transmitted reference range: 1.9-3.7 G/DL. The reference range was not used to interpret this result as normal/abnormal. CARBON DIOXIDE (test code = 1962-8) 29 MEQ/L See_Comment [Automated messa ge] The system which generated this result transmitted reference range: 19-31 MEQ/L. The reference range was not used to interpret this result as normal/abnormal. CHLORIDE (test code = 5-0) 103 MEQ/L See_Comment [Automated messa ge] The system which generated this result transmitted reference range: 95-107 MEQ/L. The reference range was not used to interpret this result as normal/abnormal. CREATININE (test code = 2160-0) 0.90 MG/DL See_Comment [Automated messa ge] The system which generated this result transmitted reference range: 0.60-1.30 MG/DL. The reference range was not used to interpret this result as normal/abnormal. eGFR (2020 CKD-EPI) (test code = 97805-6) 77 ML/MIN/1.73 See_Comment [Automated messa ge] The system which generated this result transmitted reference range: >60 ML/MIN/1.73. The reference range was not used to interpret this result as normal/abnormal. GLUCOSE (test code = 1558-6) 95 MG/DL See_Comment [Automated messa ge] The system which generated this result transmitted reference range: 70-99 MG/DL. The reference range was not used to interpret this result as normal/abnormal. POTASSIUM (test code = 2823-3) 3.9 MEQ/L See_Comment [Automated messa ge] The system which generated this result transmitted reference range: 3.5-5.4 MEQ/L. The reference range was not used to interpret this result as normal/abnormal. PROTEIN, TOTAL (test code = 2885-2) 6.6 G/DL See_Comment [Automated messa ge] The system which generated this result transmitted reference range: 6.1-8.3 G/DL. The reference range was not used to interpret this result as normal/abnormal. AST (test code = 1920-8) 19 U/L See_Comment [Automated messa ge] The system which generated this result transmitted reference range: 9-40 U/L. The reference range was not used to interpret this result as normal/abnormal. ALT (test code = 1742-6) 28 U/L See_Comment [Automated messa ge] The system which generated this result transmitted reference range: 5-40 U/L. The reference range was not used to interpret this result as normal/abnormal. SODIUM (test code = 2951-2) 142 MEQ/L See_Comment [Automated messa ge] The system which generated this result transmitted reference range: 133-146 MEQ/L. The reference range was not used to interpret this result as normal/abnormal. POCT MOLECULAR [id number] 18:54:29* Test Item Value Reference Range Interpretation Comme nts POCT Molecular FluA (test co de = 70155-0) Negative Negative POCT Molecular FluB (test co de = 34385-0) Negative Negative Lab Interpretation (test cod e = 11901-8) [facility] SARS-COV-2 ANTIGEN (BINAX NOW)2022-11-04 01:54:00* Test Item Value Reference Range Interpretation Comme nts POCT SARS-COV-2 ANTIGEN (sarah t code = 38172-8) Not Detected Not Detected On board controls acceptable with C Line (test code = 3574) Yes Lab Interpretation (test cod e = 61780-9) Normal [facility] MOLECULAR [id number] 01:29:39* Test Item Value Reference Range Interpretation Comme nts POCT Molecular FluA (test co de = 51280-2) Negative Negative POCT Molecular FluB (test co de = 38147-0) Negative Negative Lab Interpretation (test cod e = 32188-1) Normal [facility] MOLECULAR [id number] 01:23:00* Test Item Value Reference Range Interpretation Comme nts POCT Molecular Strep (test c ode = 93149-1) Negative Negative Lab Interpretation (test cod e = 10614-3) Normal [facility] SARS-COV-2 ANTIGEN (BINAX NOW)2022-05-20 18:35:00* Test Item Value Reference Range Interpretation Comme nts POCT SARS-COV-2 ANTIGEN (test code = 5076) Positive Not Detected A On board controls acceptable with C Line (test code = 3574) Yes CARTER (test code = CARTER) accurate developme nt and interpretation of all internal controls Lab Interpretation (test code = 29716-9) [facility] [id number] 14:34:35* Test Item Value Reference Range Interpretation Comme nts POCT Molecular Strep (test c ode = 34672-1) Negative Negative Lab Interpretation (test cod e = 40867-6) Normal [facility] Notes Date/Time Note Provider Source 2023-10-25 13:15:00 Fh/BR58/[id number] qnGuiY4rI2JAS5Fzz3/zkYdyXa3ugn Ne+6935-78-75Z50:15:00Addende d by: ANUJ GUILLEN MD on: 11/03/2023 02:47 PMModules accepted: Level of Service 00457-6Gmjcjeso YybabzwuIF3783-99-49S81:47:58A ddendum [id number] .[id number] Available for patient [id number] atted C-CDA narrative textSUR-PLASTIC AND RECONSTRUCTIVE SURGERY STAFFSUR-PLASTIC AND RECONSTRUCTIVE SURGERY STAFF[address] RcklXzkyuzhxxUpakuyaijIIUA0695 [id number] 30-10-27T14:47:581.2.840.63319 0.1.72.3.15|1.2.840.999872.1.1 [id number]_[id number] [facility]-PLASTIC AND RECONSTRUCTIVE SURGERY STAFF [facility]"
--- NOTE | 2023-12-07 13:22 | RAD REPORT ---
EXAM DESCRIPTION: RAD - Chest Single View - 12/07/2023 1:15 pm CLINICAL HISTORY: CHEST PAIN Chest pain. COMPARISON: No comparisons FINDINGS: Portable technique limits examination quality. The lungs are grossly clear. The heart is normal in size. No displaced fractures.Moderate dextroscoli osis of the lower thoracic spine. IMPRESSION: No acute intrathoracic process suspected.
[2023-12-07 13:54] LABS: Absolute Lymphocytes (CBC) 1.5 K/uL (0.7-4.9); Hematocrit 35.6 % (36.0-45.0); Lymphocytes % 29.3 % (15.3-44.8); MCV 104.3 fL (80-100); MPV 8.4 fL (7.6-11.3); Platelets 242 thou/uL (152-406); RBC Red Blood Cell Count 3.41 M/uL (3.86-4.86)
[2023-12-07 14:17] LABS: Albumin 3.6 g/dL (3.4-5.0); Bilirubin Direct 0.2 mg/dL (0-0.2); Bilirubin Indirect, Calculated 0.3 mg/dL (0.2-0.8); Bilirubin Total 0.5 mg/dL (0.2-1.0); Magnesium 2.3 mg/dL (1.6-2.4); Potassium 3.4 mEq/L (3.5-5.1); Protein, Total 6.4 g/dL (6.4-8.2); Thyroid Stimulating Hormone 0.677 uIU/mL (0.358-3.740); Troponin High Sensitivity 8.1 pg/mL (<58.9)
--- NOTE | 2023-12-07 14:41 | RAD REPORT ---
EXAM DESCRIPTION: CT - Soft Tissue Neck W/Contr CLINICAL HISTORY: SWELLING Neck pain and swelling COMPARISON: No comparisons TECHNIQUE All CT scans are performed using dose optimization technique as appropriate and may includ e automated exposure control or mA/KV adjustment according to patient size. FINDINGS: Nasopharyngeal tissues are normal in appearance. Fossa Rosenmller are normal. Parapharyngeal fat triangles are symmetric. Tongue base structures are normal. Epiglottis and aryepiglottic folds are normal. Piriform sinuses are well aerated. The vocal cords are normal in appearance. Salivary glands are normal in appearance. Normal size thyroid gland. No prevertebral fluid collection. No peritonsillar fluid collections. Included intracranial contents are unremarkable. Upper lung woods are clear. Mild lower cervical degenerative changes. IMPRESSION: No acute abnormality is seen.
--- NOTE | 2023-12-07 15:00 | ER ---
Nurse's Notes [facility] Name: Shayy Gonzales Age: 53 yrs Sex: Female : 1970 Arrival Date: 12/07/2023 Time: 12:11 Bed 12 Private MD: Diagnosis: Swelling of neck Presentation: 12/07 12:39 Chief complaint: Patient states: Pt c/o neck and throat pain with facial swelling since tl4 Wednesday morning. Pt states throat is not sore, does not hurt to swallow. Pt states voice is raspy. No new exposures. No oral or airway edema noted. Coronavirus screen: Vaccine status: Patient reports receiving the 2nd dose of the covid vaccine. Ebola Screen: Patient negative for fever greater than or equal to 101.5 degrees Fahrenheit, and additional compatible Ebola Virus Disease symptoms Patient denies exposure to infectious person. Patient denies travel to an Ebola-affected area in the 21 days before illness onset. No symptoms or risks identified at this time. Initial Sepsis Screen: Does the patient meet any 2 criteria? No. Patient's initial sepsis screen is negative. Does the patient have a suspected source of infection? No. Patient's initial sepsis screen is negative. Risk Assessment: Do you want to hurt yourself or someone else? Patient reports no desire to harm self or others. Onset of symptoms was December 05, 2023. 12:39 Method Of Arrival: Ambulatory tl4 12:39 Acuity: RACHEL 3 tl4 Triage Assessment: 12:44 General: Appears in no apparent distress. Behavior is calm, cooperative. Pain: tl4 Complains of pain in neck and back of neck Pain does not radiate. EENT: Reports raspy voice. Denies difficulty swallowing. Neuro: No deficits noted. Cardiovascular: No deficits noted. Denies chest pain, lightheadedness, palpitations, syncope. Respiratory: No deficits noted. Denies cough, shortness of breath. GI: Reports tolerance of fluids, tolerance of food. GI: No deficits noted. No signs and/or symptoms were reported involving the gastrointestinal system. : No deficits noted. No signs and/or symptoms were reported regarding the genitourinary system. Derm: No deficits noted. No signs and/or symptoms reported regarding the dermatologic system. Historical: - Allergies: 12:42 No Known Allergies; tl4 - Home Meds: 12:42 omeprazole 40 mg oral capsule,delayed release (e.c.) 1 cap daily [Active]; aspirin 81 tl4 mg Oral tablet,chewable 1 tab daily [Active]; 12:47 levothyroxine 100 mcg tablet 1 tab daily [Active]; tl4 - PMHx: 12:42 GERD; tl4 12:47 Hypothyroidism; tl4 - PSHx: 12:42 hysterectomy; tl4 - Immunization history:: Adult Immunizations unknown. - Social history:: Smoking status: Patient denies any tobacco usage or history of. - Family history:: not pertinent. Screenin:15 [facility] ED Fall Risk Assessment (Adult) Score/Fall Risk Level 0 - 2 = Low Risk nj1 Oriented to surroundings, Maintained a safe environment, Hourly rounding (assess needs \T\ fall precautionary measures) done. 13:15 Abuse screen: Denies threats or abuse. Denies injuries from another. Nutritional nj1 screening: No deficits noted. Tuberculosis screening: No symptoms or risk factors identified. Assessment: 13:15 Reassessment: See triage assessment. nj1 14:30 Reassessment: Patient appears in no apparent distress at this time. Patient and/or nj1 family updated on plan of care and expected duration. Pain level reassessed. Patient is alert, oriented x 3, equal unlabored respirations, skin warm/dry/pink. 15:30 Reassessment: Patient appears in no apparent distress at this time. Patient is alert, nj1 oriented x 3, equal unlabored respirations, skin warm/dry/pink. Patient states feeling better. Vital Signs: 12:39 BP 109 / 81; Pulse 75; Resp 16; Temp 98.1; Pulse Ox 99% on R/A; Weight 56.7 kg; Height tl4 5 ft. 0 in. ; Pain 7/10; 13:43 BP 102 / 68; Pulse 64; Resp 14; Pulse Ox 100% on R/A; nj1 14:30 BP 98 / 73; Pulse 76; Resp 16; Pulse Ox 100% ; nj1 15:30 BP 99 / 76; Pulse 72; Resp 18; Pulse Ox 100% on R/A; Pain 0/10; nj1 12:39 Body Mass Index 24.41 (56.70 kg, 152.4 cm) tl4 12:39 Pain Scale: Adult tl4 15:30 Pain Scale: Adult nj1 ED Course: 12:14 Patient arrived in ED. im 12:25 Tde Stone MD is Attending Physician. rt 12:42 Triage completed. tl4 12:42 Arm band placed on left wrist. tl4 12:55 Ida Kelly, RN is Primary Nurse. nj1 13:15 Patient has correct armband on for positive identification. Bed in low position. Call nj1 light in reach. Side rails up X 1. Provided Education on: call light, fall precautions. 13:17 XRAY Chest (1 view) In Process Unspecified. EDMS 13:26 EKG done, by ED staff, reviewed by Ted Stone MD. em1 13:35 Inserted saline lock: 20 gauge in right antecubital area, using aseptic technique. nj1 Blood collected. 14:28 CT Soft Tissue Neck W/contr In Process Unspecified. EDMS 15:22 No provider procedures requiring assistance completed. nj1 15:30 IV discontinued, intact, bleeding controlled. nj1 Administered Medications: No medications were administered Medication: 15:30 VIS not applicable for this client. nj1 Outcome: 15:00 Discharge ordered by . rt 15:30 Discharged to home ambulatory, nj1 15:30 Condition: stable 15:30 Discharge instructions given to patient, Instructed on discharge instructions, follow nj1 up and referral plans. medication usage, Demonstrated understanding of instructions, follow-up care, medications, Prescriptions given X 1, 16:01 Patient left the ED. nj1 Signatures: Dispatcher [employer] EDLA Mauri Guillaume em1 Ted Stone MD MD rt Ida Kelly, RN RN nj1 Whitney Koroma Log[employer] vergara tl4 Corrections: (The following items were deleted from the chart) 12:44 12:42 Home Meds: Zofran (as hydrochloride) 4 mg Oral tab as needed; tl4 tl4
--- NOTE | 2023-12-07 15:00 | EDPHYS ---
Physician Documentation [facility] Name: Shayy Gonzales Age: 53 yrs Sex: Female : 1970 Arrival Date: 12/07/2023 Time: 12:11 Bed 12 Private MD: ED Physician Ted Stone HPI: 12/07 14:22 This 53 yrs old Female presents to ER via Ambulatory with complaints of rt Nausea, Neck Swelling, Sore Throat, Headache, Chest heaviness. 14:23 Patient presents to the ED with facial swelling since Wednesday. She reports that is not rt in her throat, is in her neck, below the jawline. She reports having a raspy voice. She reports a mild chest heaviness today. She was told to come to the ED for further evaluation. She denies other acute complaints, symptoms are moderate in severity, no other aggravating alleviating factors.. Historical: - Allergies: 12:42 No Known Allergies; tl4 - Home Meds: 12:42 omeprazole 40 mg oral capsule,delayed release (e.c.) 1 cap daily [Active]; aspirin 81 tl4 mg Oral tablet,chewable 1 tab daily [Active]; 12:47 levothyroxine 100 mcg tablet 1 tab daily [Active]; tl4 - PMHx: 12:42 GERD; tl4 12:47 Hypothyroidism; tl4 - PSHx: 12:42 hysterectomy; tl4 - Immunization history:: Adult Immunizations unknown. - Social history:: Smoking status: Patient denies any tobacco usage or history of. - Family history:: not pertinent. ROS: 14:23 Constitutional: Negative for fever, chills, and weight loss, Cardiovascular: Reports rt chest heaviness, negative for edema Respiratory: Negative for shortness of breath, cough, wheezing, and pleuritic chest pain, Abdomen/GI: Negative for abdominal pain, nausea, vomiting, diarrhea, and constipation, MS/Extremity: Negative for injury and deformity, Neuro: Negative for headache, weakness, numbness, tingling, and seizure, Psych: Negative for depression, anxiety, suicide ideation, homicidal ideation, and hallucinations, 14:23 ENT: Positive for Neck swelling, negative for sore throat, Exam: 14:23 Constitutional: This is a well developed, well nourished patient who is awake, alert, rt and in no acute distress. Head/Face: Normocephalic, atraumatic. Chest/axilla: Normal chest wall appearance and motion. Nontender with no deformity. No lesions are appreciated. Cardiovascular: Regular rate and rhythm with a normal S1 and S2. No gallops, murmurs, or rubs. Normal PMI, no JVD. No pulse deficits. Respiratory: Lungs have equal breath sounds bilaterally, clear to auscultation and percussion. No rales, rhonchi or wheezes noted. No increased work of breathing, no retractions or nasal flaring. Abdomen/GI: Soft, non-tender, with normal bowel sounds. No distension or tympany. No guarding or rebound. No evidence of tenderness throughout. Skin: Warm, dry with normal turgor. Normal color with no rashes, no lesions, and no evidence of cellulitis. MS/ Extremity: Pulses equal, no cyanosis. Neurovascular intact. Full, normal range of motion. Neuro: Awake and alert, GCS 15, oriented to person, place, time, and situation. Cranial nerves II-XII grossly intact. Motor strength 5/5 in all extremities. Sensory grossly intact. Cerebellar exam normal. Normal gait. 14:23 ENT: No swelling, signs of angioedema, posterior pharyngeal erythema or exudate. 14:23 Neck: Minimal edema to the anterior neck, no discrete lymph nodes palpable, no erythema noted, 14:23 ECG was reviewed by the Attending Physician. Vital Signs: 12:39 BP 109 / 81; Pulse 75; Resp 16; Temp 98.1; Pulse Ox 99% on R/A; Weight 56.7 kg; Height tl4 5 ft. 0 in. ; Pain 7/10; 13:43 BP 102 / 68; Pulse 64; Resp 14; Pulse Ox 100% on R/A; nj1 14:30 BP 98 / 73; Pulse 76; Resp 16; Pulse Ox 100% ; nj1 15:30 BP 99 / 76; Pulse 72; Resp 18; Pulse Ox 100% on R/A; Pain 0/10; nj1 12:39 Body Mass Index 24.41 (56.70 kg, 152.4 cm) tl4 12:39 Pain Scale: Adult tl4 15:30 Pain Scale: Adult nj1 MDM: 12:49 Patient medically screened. rt 15:25 Differential diagnosis: Viral syndrome, SKID STRAPPER, RPA, Avi's angina, ACS. Data reviewed: rt vital signs, nurses notes, lab test result(s), EKG, radiologic studies. Consideration of Admission/Observation Escalation of care including admission/observation considered. No signs or symptoms to suggest angioedema, anaphylaxis, given chronicity of symptoms, 1 set of enzymes is sufficient to rule out an acute coronary syndrome. No indications for admission at this time, patient stable for outpatient care, return precautions discussed.. Independent interpretation of the following test(s) in the Emergency Department X-Ray: My interpretation is No consolidation seen on my interpretation of x-ray images. Care significantly affected by the following chronic conditions: Rheumatoid arthritis. Counseling: I had a detailed discussion with the patient and/or guardian regarding the historical points, exam findings, and any diagnostic results supporting the discharge/admit diagnosis, lab results, radiology results, the need for outpatient follow up, to return to the emergency department if symptoms worsen or persist or if there are any questions or concerns that arise at home. 12/07 12:50 Order name: Basic Metabolic Panel; Complete Time: 14:19 rt 12/07 12:50 Order name: CBC with Diff; Complete Time: 14:19 rt 12/07 12:50 Order name: LFT's; Complete Time: 14:19 rt 12/07 12:50 Order name: Magnesium; Complete Time: 14:19 rt 12/07 12:50 Order name: Troponin HS; Complete Time: 14:19 rt 12/07 12:50 Order name: TSH; Complete Time: 14:19 rt 12/07 12:50 Order name: XRAY Chest (1 view); Complete Time: 14:19 rt 12/07 12:50 Order name: CT Soft Tissue Neck W/contr; Complete Time: 14:48 rt 12/07 12:50 Order name: EKG; Complete Time: 12:51 rt 12/07 12:50 Order name: Cardiac monitoring; Complete Time: 13:42 rt 12/07 12:50 Order name: EKG - Nurse/Tech; Complete Time: 13:16 rt 12/07 12:50 Order name: IV Saline Lock; Complete Time: 13:42 rt 12/07 12:50 Order name: Labs collected and sent; Complete Time: 13:42 rt 12/07 12:50 Order name: O2 Per Protocol; Complete Time: 13:42 rt 12/07 12:50 Order name: O2 Sat Monitoring; Complete Time: 13:42 rt EC:23 Rate is 63 beats/min. Rhythm is regular, Normal Sinus Rhythm with No ectopy. QRS [place] rt is Normal. OR interval is normal. QRS interval is normal. QT interval is normal. No Q waves. T waves are Normal. No ST changes noted. Administered Medications: No medications were administered Disposition Summary: 12/07/23 15:00 Discharge Ordered Notes: Location: Home rt Problem: an ongoing problem rt Symptoms: are unchanged rt Condition: Stable rt Diagnosis - Swelling of neck rt Followup: rt - With: Private Physician - When: 2 - 3 days - Reason: Discharge Instructions: - Discharge Summary Sheet rt - Laryngitis rt Forms: - Medication Reconciliation Form rt - Thank You Letter rt - Antibiotic Education rt - Prescription Opioid Use rt - Patient Portal Instructions rt - Leadership Thank You Letter rt Prescriptions: - Prednisone 20 mg Oral Tablet - take 2 tablets ORAL route once daily for 5 days; 10 tablet; Refills: 0, Product rt Selection Permitted Signatures: Dispatcher [employer] EDOH Ted Stone MD MD rt Main Peters tl4 Corrections: (The following items were deleted from the chart) 12:44 12:42 Home Meds: Zofran (as hydrochloride) 4 mg Oral tab as needed; tl4 tl4
[2023-12-08 01:44] VITALS: TEMP 98.1
[2023-12-08 01:59] VITALS: BP 99/76; O2SAT 100
== END ==
LOC: ER 12:11
DX: R22.1 Localized swelling, mass and lump, neck (principal); R07.89 Other chest pain
CPT/HCPCS: 85025; 80048; 36415; 83735; 80076; 84443; 84484; 70491; 71045; Q9967; 93005

== ENCOUNTER 2025-01-14 16:55 | Emergency (ER) | payer BC ==
--- OUTSIDE RECORDS SUMMARY | 2025-01-14 16:59 | XMS REPORT | Continuity of Care Document ---
Author Name Unknown Address [address] [place] [address] Organization [facility] Address [address] [place] [address] Care Team Providers Care Tool Setter Apprentice Name Role Phone PCP, PATIENT DOES NOT HAVE A Primary Care Physic carlyn Unavailable Marybel Nguyen Attending Clinician Unavailable [email or web address] Attending Clinician Unavaila ble ROBBIE BENTLEY Attending Clinician Unavail able Doctor Unassigned, [place] Attending Clinician U BEV Head Attending Clinician Unavailable [email or web address] Admitting Clinician Unavaila ble Payers Payer Name Policy Type Policy Number Effective Date Expirati on Date Source [id number] 2021 00:00:00 Problems Condition Name Condition Details Condition Category Status Onset Date Resolution Date Last Treatment Date Treating Clinician Comments Source Menopausal flushing Menopausal Flushing Problem Active 11-16 00:00: 00 [facility] Rheumatoid arthritis Rheumatoid Arthritis Problem Active 11-16 00:00: 00 [facility] Genital herpes simplex Genital Herpes Simplex Problem Active 11-16 00:00: 00 [facility] Candidiasi s of vagina Candidiasi s of Vagina Problem Active 05-08 00:00: 00 [facility] Gynecologi julio examinatio n abnormal Gynecologi julio Examinatio n Abnormal Problem Active 03-05 00:00: 00 [facility] Hypothyroi dism Hypothyroi dism Problem Active 03-05 00:00: 00 [facility] Furuncle of groin Furuncle of Groin Problem Active 2019 0-11 00:00: 00 [facility] Menopause present Menopause Present Problem Active 2018-11 011 00:00: 00 [facility] Mild recurrent major depression Mild Recurrent Major Depression Problem Active 8-14 00:00: 00 [facility] Chronic fatigue syndrome Chronic Fatigue Syndrome Problem Active 814 00:00: 00 [facility] Constipati on Constipati on Problem Active 05-02 00:00: 00 [facility] Increased frequency of urination Increased Frequency of Urination Problem Active 6 00:00: 00 [facility] Uterine leiomyoma Uterine Leiomyoma Problem Active 01-30 00:00: 00 [facility] Cervical intraepith elial neoplasia grade 1 Cervical Intraepith elial Neoplasia Grade 1 Problem Active 3 00:00: 00 [facility] Polymenorr hea Polymenorr hea Problem Active 3 00:00: 00 [facility] Abdominal distension , gaseous Abdominal Distension , Gaseous Problem Active 3 00:00: 00 [facility] Excessive menstruati on with irregular cycle Excessive Menstruati on with Irregular Cycle Problem Active 3 00:00: 00 [facility] Pelvic and perineal pain Pelvic and Perineal Pain Problem Active 3 00:00: 00 [facility] Low grade squamous intraepith elial lesion on cervical Papanicola ou smear Low Grade Squamous Intraepith elial Lesion on Cervical Papanicola ou Smear Problem Active 3 00:00: 00 [facility] Anemia due to chronic blood loss Anemia Due to Chronic Blood Loss Problem Active 304 00:00: 00 [facility] No known active problems No known active problems Disease [facility] Allergies, Adverse Reactions, Alerts Allergy Name Allergy Type Status Severity Reaction(s) Onset Date Inactive Date Treating Clinician Comments Source NO KNOWN ALLERGIE S Drug Class Active [facility] Social History Social Habit Start Date Stop Date Quantity Comments Source Exposure to SARS-CoV-2 (event) Yes [facility] Tobacco use and exposure 2021-11-09 00:00:00 2021-11-09 00:00:00 Never used [facility] Alcohol intake 2021-11-09 00:00:00 2021-11-09 00:00:00 Current drinker of alcohol (finding) [facility] Sex Ass[birth year] At 1970 00:00:00 1970 00:00:00 [facility] Smoking Status Start Date Stop Date Source Never Smoker [facility] Medications Ordered Medication Name Filled Medication Name Start Date Stop Date Current Medication? Ordering Clinician Indication Dosage Frequency Signature (SIG) Comments Components Source methylPREDN ISolone (MEDROL, DUSTY,) 4 mg tablets 11-09 00:00: 00 Yes [id number] Take by mouth SEE-INSTRU CTIONS. follow package directions [facility] albuterol 90 mcg/actuati on inhaler 11-09 00:00: 00 Yes [id number] 2{puff} Inhale 2 Puffs every 6 (six) hours as needed for Wheezing or Shortness of Breath. [facility] celecoxib celecoxib No celecoxib [facility] fluoxetine fluoxetine No fluoxetine [facility] folic acid folic acid No folic acid [facility] hydrochloro thiazide hydrochloro thiazide No hydrochlor othiazide [facility] levothyroxi ne levothyroxi ne No levothyrox ine [facility] methotrexat e methotrexat e No methotrexa te [facility] omeprazole omeprazole No omeprazole [facility] Pepcid Pepcid No Pepcid [facility] valacyclovi r valacyclovi r No valacyclov ir [facility] Vital Signs Vital Name Observation Time Observation Value Comments S ource BP Diastolic 2024-11-16 00:00:00 76 mm[Hg] [facility] Weight 2024-11-16 00:00:00 133.4 [lb_av] [facility] BP Systolic 2024-11-16 00:00:00 122 mm[Hg] [facility] Height 2024-11-16 00:00:00 60 [in_i] [facility] BMI (Body Mass Index) 2024-11-16 00:00:00 26.1 kg/m2 [facility] Procedures Procedure Date / Time Performed Performing Clinician Source MAMMO, screening, digital, bilateral 2024-11-16 00:00:00 [facility] REFERRAL- REQUEST/RESPONSE 2021-11-20 06:01:00 Doctor Unassigned, [place] [facility] Hysterectomy 2017-11-08 00:00:00 [facility] edical Ligation of Bilateral Fallopian Tubes [facility] Encounters Start Date/Time End Date/Time Encounter Type Admission Type Attending Clinicians Care Facility Care Department Encounter ID Source 2024-12-12 09:53:01 Outpatient Marybel Nguyen CLS CLS [id number] 2024-11-16 00:00:00 2024-11-16 00:00:00 Paty Andrews, TANK REFINISHER: [address], [place] [address] , Ph. [facility] - [email or web address] [facility]* [id number] [facility] 2023-09-08 00:00:00 2023-09-08 00:00:00 Outpatient [email or web address] [facility] [id number] [facility] 2021-12-25 09:15:00 2021-12-25 09:15:00 Outpatient R ROBBIE BENTLEY [facility] [id number] [facility] 2021-12-25 09:15:00 2021-12-25 09:15:00 Outpatient R ROBBIE BENTLEY [facility] [id number] [facility] 2021-11-20 00:00:00 2021-11-20 00:00:00 Orders Only Doctor Unassigned, [place] [facility] [id number] [facility] 2021-11-09 11:40:00 2021-11-09 12:52:07 Outpatient BEV RENNER [facility] [id number] [facility]
[2025-01-14] MEDS ORDERED: NA CHLORIDE 0.9% 1,000 ML ONE (17:46)
[2025-01-14] MEDS ORDERED: KETOROLAC 30 MG/ML INJ ONE (17:46)
[2025-01-14] MEDS ORDERED: METOCLOPRAMIDE 10 MG/2mL INJ ONE (17:46)
[2025-01-14] MEDS ORDERED: IPRATROPIUM BROM 0.5MG/2.5ML ONE (17:46)
[2025-01-14] MEDS ORDERED: DIPHENHYDRAMINE 50 MG/ML VIAL ONE (17:46)
[2025-01-14] MEDS ORDERED: ALBUTEROL 2.5 MG/3 ML NEB SOL ONE (17:46)
--- NOTE | 2025-01-14 17:46 | RAD REPORT ---
Procedure: Chest Single View HISTORY: Chest pain COMPARISON: 2023 FINDINGS: The lungs appear clear of acute infiltrate. No significant pleural effusion noted. The heart is normal size. Scoliosis involves the spine. IMPRESSION: No acute abnormality is displayed.
[2025-01-14 18:22] LABS: Absolute Eosinophils 0.1 K/uL (0-0.5); Absolute Lymphocytes (CBC) 1.7 K/uL (0.7-4.9); Absolute Monocytes 0.9 K/uL (0.1-1.3); Absolute Neutrophil 3.2 K/uL (1.8-8.0); Basophils % 0.8 % (0-1.3); Eosinophils % 1.2 % (0-4.4); Hemoglobin 14.1 g/dL (12.0-15.0); Influenza A Ag Negative; Influenza B Ag Negative; Lymphocytes % 28.8 % (15.3-44.8); MCH 35.1 pg (27.0-35.0); MCHC 34.5 g/dL (32.0-36.0); MCV 101.9 fL (80-100); MPV 8.5 fL (7.6-11.3); Monocytes % 15.5 % (3.3-12.3); Neutrophils % 53.7 % (41.7-73.7); Platelets 216 thou/uL (152-406); RBC Red Blood Cell Count 4.02 M/uL (3.86-4.86); Red Cell Distribution Width 12.8 % (12.1-15.2)
[2025-01-14 18:24] LABS: SARS-CoV-2 Antigen Rapid Res Positive (Negative)
[2025-01-14 18:26] LABS: ALT/SGPT 40 U/L (13-56); AST/SGOT 20 U/L (15-37); Albumin 3.4 g/dL (3.4-5.0); Albumin/Globulin Ratio 1.2 (1.1-1.8); Alkaline Phosphatase 121 U/L (45-117); Anion Gap 9.5 mEq/L (5.0-15.0); BUN Blood Urea Nitrogen 10 mg/dL (7-18); Bicarbonate 26 mEq/L (21-32); Bilirubin Total 0.2 mg/dL (0.2-1.0); Globulin 2.9 g/dL (2.3-3.5); Glomerular Filtration Rate 103 ml/min (=/>90); Glucose Level 120 mg/dL (74-106); Magnesium 2.4 mg/dL (1.6-2.4); NT PRO-BNP 63 pg/mL (<125); Potassium 3.5 mEq/L (3.5-5.1); Protein, Total 6.3 g/dL (6.4-8.2); Sodium Level 139 mEq/L (136-145); Troponin High Sensitivity 10.9 pg/mL (<58.9)
[2025-01-14 18:28] LABS: Bilirubin Direct < 0.2 mg/dL (0-0.2)
--- NOTE | 2025-01-14 18:49 | ER ---
Nurse's Notes [facility] Name: Shayy Gonzales Age: 54 yrs Sex: Female : 1970 Arrival Date: 01/14/2025 Time: 16:55 Bed 18 Private MD: Diagnosis: SARS-associated coronavirus as the cause of diseases classified elsewhere Presentation: 01/14 17:09 Chief complaint: Patient states: CONGESTION, SOB, CHEST TIGHTNESS SINCE WEDNESDAY CHEST db PAIN WITH COUGH AND DEEP BREATHING. STATES WAS SEEN AT URGENT CARE FOR SYMPTOMS AND PRESCRIBED MUCINEX AND NASAL SPRAY. HOWEVER STILL HAS SIMILAR SYMPTOMS. Coronavirus screen: Client denies travel out of the [place] in the last 14 days. At this time, the client does not indicate any symptoms associated with coronavirus-19. Ebola Screen: Patient negative for fever greater than or equal to 101.5 degrees Fahrenheit, and additional compatible Ebola Virus Disease symptoms Patient denies exposure to infectious person. Patient denies travel to an Ebola-affected area in the 21 days before illness onset. No symptoms or risks identified at this time. Initial Sepsis Screen: Does the patient meet any 2 criteria? No. Patient's initial sepsis screen is negative. Does the patient have a suspected source of infection? No. Patient's initial sepsis screen is negative. Risk Assessment: Do you want to hurt yourself or someone else? Patient reports no desire to harm self or others. Onset of symptoms was January 14, 2025. 17:09 Method Of Arrival: Ambulatory db 17:09 Acuity: RACHEL 3 db Triage Assessment: 17:12 General: Appears in no apparent distress. comfortable, Behavior is calm, cooperative. db Pain: Denies pain. Neuro: Level of Consciousness is awake, alert, obeys commands, Oriented to person, place, time, situation. Cardiovascular: Reports fatigue. 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 - Infectious Disease History:: Denies. - Social history:: Smoking status: Patient denies any tobacco usage or history of. Screenin:[address] [facility] ED Fall Risk Assessment (Adult) History of falling in the last 3 months, kc6 including since admission No falls in past 3 months (0 pts) Confusion or Disorientation No (0 pts) Intoxicated or Sedated No (0 pts) Impaired Gait No (0 pts) Mobility Assist Device Used No (0 pt) Altered Elimination No (0 pt) Score/Fall Risk Level 0 - 2 = Low Risk Oriented to surroundings, Maintained a safe environment, Educated pt \T\ family on fall prevention, incl call for assistance when getting out of bed. Abuse screen: Denies threats or abuse. Denies injuries from another. Nutritional screening: No deficits noted. Tuberculosis screening: No symptoms or risk factors identified. Assessment: 18:37 General: Appears in no apparent distress. uncomfortable, ill, well groomed, well kc6 developed, Behavior is calm, cooperative, appropriate for age, quiet. Pain: Complains of pain in face and chest Pain does not radiate. Pain began 2-3 days ago. Neuro: Level of Consciousness is awake, alert, obeys commands, Oriented to person, place, time, situation, Appropriate for age Reports dizziness, headache. Cardiovascular: Reports chest pain, lightheadedness, Capillary refill < 3 seconds. Respiratory: Airway is patent Trachea midline Respiratory effort is even, unlabored, Respiratory pattern is regular, symmetrical. GI: Abdomen is flat, non-distended, Bowel sounds present X 4 quads. Abd is soft and non tender X 4 quads. Reports nausea, Patient currently denies abdominal pain, diarrhea, vomiting. : No signs and/or symptoms were reported regarding the genitourinary system. EENT: No signs and/or symptoms were reported regarding the EENT system. Derm: No signs and/or symptoms reported regarding the dermatologic system. Skin is intact, is healthy with good turgor, Skin is pink, warm \T\ dry. Musculoskeletal: No signs and/or symptoms reported regarding the musculoskeletal system. Circulation, motion, and sensation intact. Range of motion: intact in all extremities. 19:12 Reassessment: Patient and/or family updated on plan of care and expected duration. Pain ha1 level reassessed. Patient is alert, oriented x 3, equal unlabored respirations, skin warm/dry/pink. Patient states feeling better. Patient states symptoms have improved. Vital Signs: 17:09 BP 122 / 81; Pulse 90; Resp 18; Temp 98; Pulse Ox 95% ; Weight 58.06 kg; Height 5 ft. 0 db in. ; 19:12 BP 117 / 75; Pulse 85; Resp 17 S; Temp 98.1(T); Pulse Ox 98% on R/A; ha1 17:09 Body Mass Index 25.00 (58.06 kg, 152.4 cm) db ED Course: 16:59 Patient arrived in ED. al6 17:00 Lorraine Spain PA-C is PHCP. sb4 17:00 Yifan Garcia MD is Attending Physician. sb4 17:12 Triage completed. db 17:12 Arm band placed on Patient placed in an exam room. db 17:34 Tiana Bach, GT is Primary Nurse. kc6 17:41 XRAY Chest (1 view) In Process Unspecified. EDMS 18:01 No provider procedures requiring assistance completed. Inserted saline lock: 20 gauge kc6 in right forearm, using aseptic technique. Blood collected. Flushed with 10 mL NS. Patient maintains SpO2 saturation greater than 95% on room air. 18:02 Patient has correct armband on for positive identification. Bed in low position. Call kc6 light in reach. Side rails up X 1. Pulse ox on. NIBP on. Door closed. Noise minimized. Lights dimmed. Warm blanket given. Pillow given. Verbal reassurance given. 19:13 Provided Education on: follow ups and medication administration . ha1 19:13 IV discontinued, intact, bleeding controlled, No redness/swelling at site. Pressure ha1 dressing applied. Administered Medications: 18:01 Drug: DuoNeb Nebulize (3:1) (2.5 mg - 0.5 mg) 3 ml Nebulizer once Route: Nebulizer; kc6 19:09 Follow up: Response: No adverse reaction 6 18:01 Drug: NS 0.9% IV 1000 ml IV at 1 bolus Per protocol; to be given as a bolus over 60 kc6 minutes Route: IV; Rate: 1 bolus; Site: right forearm; 19:14 Follow up: Response: No adverse reaction; IV Status: Completed infusion; IV Intake: ha1 1000ml 18:01 Drug: Ketorolac IVP 15 mg IVP once Route: IVP; Site: right forearm; kc6 19:09 Follow up: Response: No adverse reaction; Pain is decreased kc6 18:01 Drug: metoCLOPramide IVP 10 mg IVP once; over 1 to 2 minutes Route: IVP; Site: right kc6 forearm; 19:09 Follow up: Response: No adverse reaction kc6 18:01 Drug: diphenhydrAMINE IVP 25 mg IVP once Route: IVP; Site: right forearm; kc6 19:09 Follow up: Response: No adverse reaction kc6 Medication: 19:13 VIS not applicable for this client. ha1 Intake: 19:14 IV: 1000ml; Total: 1000ml. ha1 Outcome: 18:48 Discharge ordered by . sb4 19:13 Discharged to home ambulatory, ha1 19:13 Condition: stable 19:13 Condition: stable 19:13 Discharge instructions given to patient, Instructed on discharge instructions, follow up and referral plans. medication usage, Demonstrated understanding of instructions, follow-up care, medications, Prescriptions given X 1, 19:14 Patient left the ED. ha1 Signatures: Dispatcher [employer] EDMS Leda Franklin RN RN 1 Tiana Bach RN RN kc6 Radha Christopher RN RN db Brown, Sophia, PA-C PA-C sb4 Genny Valiente6
--- NOTE | 2025-01-14 18:49 | EDPHYS ---
Physician Documentation [facility] Name: Shayy Gonzales Age: 54 yrs Sex: Female : 1970 Arrival Date: 01/14/2025 Time: 16:55 Bed 18 Private MD: ED Physician Yifan Garcia HPI: 01/14 17:23 This 54 yrs old Female presents to ER via Ambulatory with complaints of Chest sb4 Tightness, Dizziness, Breathing Difficulty. 17:23 Patient states that she has been feeling sick for the past week. Chest congestion, sb4 cough, nausea, generalized weakness. She was seen at urgent care 5 days ago, had negative strep and flu swabs, and instructed to take Mucinex and nasal sprays. She states that she has been doing those things but is still feeling very poorly. States that one of her family members recently tested positive for COVID.. 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 - Infectious Disease History:: Denies. - Social history:: Smoking status: Patient denies any tobacco usage or history of. ROS: 17:23 Skin: Negative for injury, rash, and discoloration, sb4 17:23 Constitutional: Positive for body aches, fatigue, malaise, 17:23 Cardiovascular: Positive for Chest tightness, 17:23 Respiratory: Positive for cough, 17:23 Abdomen/GI: Positive for nausea, vomiting, and diarrhea, 17:23 All other systems are negative, Exam: 17:24 Constitutional: This is a well developed, well nourished patient who is awake, alert, sb4 and in no acute distress. Head/Face: Normocephalic, atraumatic. Eyes: Extra-ocular motions intact. Periorbital areas with no swelling, redness, or edema. ENT: Mucous membranes moist. Cardiovascular: Regular rate and rhythm with a normal S1 and S2. Respiratory: No increased work of breathing, no retractions or nasal flaring. Abdomen/GI: Soft, non-tender, no distension. Skin: Warm, dry with normal turgor. Normal color with no rashes, no lesions, and no evidence of cellulitis. MS/ Extremity: Pulses equal, no cyanosis. Neurovascular intact. Full, normal range of motion. Neuro: Awake and alert, GCS 15, oriented to person, place, time, and situation. Motor strength 5/5 in all extremities. Sensory grossly intact. 17:24 Respiratory: Breath sounds: are clear throughout, Vital Signs: 17:09 BP 122 / 81; Pulse 90; Resp 18; Temp 98; Pulse Ox 95% ; Weight 58.06 kg; Height 5 ft. 0 db in. ; 19:12 BP 117 / 75; Pulse 85; Resp 17 S; Temp 98.1(T); Pulse Ox 98% on R/A; ha1 17:09 Body Mass Index 25.00 (58.06 kg, 152.4 cm) db MDM: 17:04 Medical Screening Exam initiated sb4 18:48 Data reviewed: vital signs, nurses notes, lab test result(s), EKG, radiologic studies, sb4 and as a result, I will discharge patient. Counseling: I had a detailed discussion with the patient and/or guardian regarding the historical points, exam findings, and any diagnostic results supporting the discharge/admit diagnosis, lab results, radiology results, the need for outpatient follow up, for definitive care, to return to the emergency department if symptoms worsen or persist or if there are any questions or concerns that arise at home. 03 17:21 Order name: Basic Metabolic Panel; Complete Time: 18:33 sb4 01/14 17:21 Order name: CBC with Diff; Complete Time: 18:24 sb4 01/14 17:21 Order name: LFT's; Complete Time: 18:33 sb4 01/14 17:21 Order name: Magnesium; Complete Time: 18:33 sb4 01/14 17:21 Order name: NT PRO-BNP; Complete Time: 18:33 sb4 01/14 17:21 Order name: Troponin HS; Complete Time: 18:33 sb4 01/14 17:21 Order name: COVID-19 Ag + Flu A+B Ag; Complete Time: 18:24 sb4 01/14 17:21 Order name: XRAY Chest (1 view); Complete Time: 17:47 sb4 01/14 17:21 Order name: EKG - Nurse/Tech; Complete Time: 18:01 sb4 01/14 17:21 Order name: IV Saline Lock; Complete Time: 18:01 sb4 01/14 17:21 Order name: Labs collected and sent; Complete Time: 18:01 sb4 01/14 17:21 Order name: O2 Per Protocol; Complete Time: 17:34 sb4 01/14 17:21 Order name: O2 Sat Monitoring; Complete Time: 17:34 sb4 EC:44 Rate is 79 beats/min. Rhythm is regular, Normal Sinus Rhythm. TX interval is normal at sb4 136 msec. QRS interval is normal at 94 msec. QT interval is normal at 418 msec. No Q waves. T waves are Normal. Clinical impression: Normal ECG. Interpreted by me. Reviewed by me. Administered Medications: 18:01 Drug: DuoNeb Nebulize (3:1) (2.5 mg - 0.5 mg) 3 ml Nebulizer once Route: Nebulizer; kc6 19:09 Follow up: Response: No adverse reaction 6 18:01 Drug: NS 0.9% IV 1000 ml IV at 1 bolus Per protocol; to be given as a bolus over 60 kc6 minutes Route: IV; Rate: 1 bolus; Site: right forearm; 19:14 Follow up: Response: No adverse reaction; IV Status: Completed infusion; IV Intake: ha1 1000ml 18:01 Drug: Ketorolac IVP 15 mg IVP once Route: IVP; Site: right forearm; kc6 19:09 Follow up: Response: No adverse reaction; Pain is decreased kc6 18:01 Drug: metoCLOPramide IVP 10 mg IVP once; over 1 to 2 minutes Route: IVP; Site: right kc6 forearm; 19:09 Follow up: Response: No adverse reaction kc6 18:01 Drug: diphenhydrAMINE IVP 25 mg IVP once Route: IVP; Site: right forearm; kc6 19:09 Follow up: Response: No adverse reaction kc6 Disposition Summary: 01/14/25 18:48 Discharge Ordered Notes: Location: Home sb4 Problem: an ongoing problem sb4 Symptoms: have improved sb4 Condition: Stable sb4 Diagnosis - SARS-associated coronavirus as the cause of diseases classified elsewhere sb4 Followup: sb4 - With: Emergency Department - When: As needed - Reason: Trouble breathing, Worsening of condition Discharge Instructions: - Discharge Summary Sheet sb4 - 10 Things You Can Do to Manage Your COVID-19 Symptoms at Home - [facility] (05/23/2021) sb4 Forms: - Work release form sb4 - Patient Portal Instructions sb4 - Leadership Thank You Letter sb4 Prescriptions: - Paxlovid 300 mg (150 mg x 2)-100 mg Oral Tablet, Dose Pack - take 1 dose pack ORAL route as directed on dose pack take TWO 150 mg tablets of sb4 nirmatrelvir with ONE 100 mg tablet of ritonavir twice daily for 5 days; 1 Pack; Refills: 0, Product Selection Permitted Signatures: Dispatcher [employer] EDMS Tiana Bach, RN RN kc6 Radha Christopher, RN RN Lorraine Thomas PA-C PAGail [email or web address] Leda Franklin RN ha1 Corrections: (The following items were deleted from the chart) 17:22 17:22 BASIC METABOLIC PANEL+C.LAB.BRZ ordered. EDMS EDMS 17:22 17:22 CBC+H.LAB.BRZ ordered. EDMS EDMS 17:22 17:22 HEPATIC FUNCTION+C.LAB.BRZ ordered. EDMS EDMS 17:22 17:22 MAGNESIUM+C.LAB.BRZ ordered. EDMS EDMS 17:22 17:22 PROBNP+C.LAB.BRZ ordered. EDMS EDMS 17:22 17:22 Troponin High Sensitivity+C.LAB.BRZ ordered. EDMS EDMS 17:22 17:22 COVID-19 Ag + Flu A+B Ag+I.LAB.BRZ ordered. EDMS EDMS 17:22 17:22 Chest Single View+RAD.RAD.BRZ ordered. EDMS EDMS
[2025-01-14 19:39] VITALS: BP 117/75; TEMP 98.1; O2SAT 98
--- NOTE | 2025-01-16 11:04 | EKG ---
Test Date: 2025-01-14 Test Time: 17:42:08 Tape Editor: BETI MEASUREMENT RESULTS: Intervals: Rate: 79 SC: 136 QRSD: 94 QT: 418 QTc: 479 [place]: P: 55 SC: 136 QRS: 47 T: 38 INTERPRETIVE STATEMENTS: Normal sinus rhythm Nonspecific ST abnormality Abnormal ECG Compared to ECG 12/07/2023 13:08:14 No significant changes Electronically Signed On 01-16-25 10:59:14 CDT by John Casiano
== END 2025-01-14 19:14 | disposition home or self-care (01) ==
LOC: ER 16:55
DX: U07.1 COVID-19 (principal)
CPT/HCPCS: 96361; 93005; 85025; 80048; 36415; 83735; 80076; 84484; 83880; 71045; 96375; 96374; 99285; 87428; J2765; J1200; J7613; J7644; J7030